=== PATIENT | male | born 1950 | race Caucasian/White ===

== ENCOUNTER → 2017-04-05 | Outpatient (CLI) | payer OTHER, MEDICARE ==
--- NOTE | 2017-04-05 16:33 | RADIOLOGY REPORT (SQ) ---
EXAM DESCRIPTION: FOOT RIGHT COMPLETE COMPLETED DATE/TIME: 04/05/2017 4:18 pm REASON FOR STUDY: NON-PRS CHRONIC ULCER OTH PRT RIGHT FOOT W FAT LAYER EXPOSED L97.512 NON-PRS CLOTH EXAMINER MARKOS ULCER OTH PRT RIGHT FOOT W FAT LAYER L97.522 NON-PRS CHRONIC ULCER OTH PRT LEFT FOOT W FAT LAYER COMPARISON: None. NUMBER OF VIEWS: Three views. TECHNIQUE: AP, lateral and oblique radiographic images acquired of the right foot. LIMITATIONS: None. FINDINGS: MINERALIZATION: Normal. BONES: No acute fracture or dislocation. No worrisome bone lesions. JOINTS: No effusions. SOFT TISSUES: Vascular calcification. No foreign body. OTHER: No other significant finding. IMPRESSION: No evidence of osteomyelitis. TECHNICAL DOCUMENTATION: JOB ID: [id number]- All Rights Reserved
--- NOTE | 2017-04-05 16:38 | RADIOLOGY REPORT (SQ) ---
EXAM DESCRIPTION: FOOT LEFT COMPLETE COMPLETED DATE/TIME: 04/05/2017 4:18 pm REASON FOR STUDY: NON-PRS CHRONIC ULCER OTH PRT LEFT FOOT W FAT LAYER EXPOSED L97.512 NON-PRS CHRON IC ULCER OTH PRT RIGHT FOOT W FAT LAYER L97.522 NON-PRS CHRONIC ULCER OTH PRT LEFT FOOT W FAT LAYER COMPARISON: 05/07/2016 NUMBER OF VIEWS: Three views. TECHNIQUE: AP, lateral and oblique radiographic images acquired of the left foot. LIMITATIONS: None. FINDINGS: MINERALIZATION: Normal. BONES: Periosteal reaction plantar surface of the sesamoid 1st metatarsal head which is unchanged. JOINTS: No effusions. SOFT TISSUES: Soft tissue swelling head of 1st metatarsal. Tiny linear metal density seen on one vie w only is probably external to the patient. Vascular calcifications. OTHER: No other significant finding. IMPRESSION: Nonspecific chronic periosteal reaction 1st metatarsal sesamoid. No significant change from 05/07/2016. TECHNICAL DOCUMENTATION: JOB ID: [id number] [employer]- All Rights Reserved
== END ==
LOC: OD 15:40
PROVIDERS: ATTEND Preventive Medicine Undersea and Hyperbaric Medicine
DX: L97.512 Non-pressure chronic ulcer of other part of right foot with fat layer exposed (principal); L97.522 Non-pressure chronic ulcer of other part of left foot with fat layer exposed

== ENCOUNTER → 2017-05-18 | Outpatient (CLI) | payer MEDICARE, OTHER ==
[2017-05-18 14:51] LABS: ABSOLUTE EOSINOPHILS # (AUTO) 0.1 10^3/uL (0.0-0.6); ABSOLUTE LYMPHOCYTES (AUTO) 1.1 10^3/uL (0.5-4.7); ABSOLUTE MONOCYTES (AUTO) 0.6 10^3/uL (0.1-1.4); BASOPHILS % (AUTO) 0.5 % (0-2); EOSINOPHILS % (AUTO) 1.4 % (0-6); HEMATOCRIT 42.6 % (37.9-51.0); HEMOGLOBIN 14.5 g/dL (13.5-17.0); HGB HCT DIFFERENCE 0.9; LYMPHOCYTES % (AUTO) 12.5 % (13-45); MEAN CORPUSCULAR HEMOGLOBIN 29.5 pg (27.0-33.4); MEAN CORPUSCULAR HGB CONC 34.1 g/dL (32.0-36.0); MEAN CORPUSCULAR VOLUME 87 fl (80-97); MONOCYTES % (AUTO) 6.5 % (3-13); RED BLOOD COUNT 4.92 10^6/uL (4.35-5.55); RED CELL DISTRIBUTION WIDTH 14.6 % (11.5-14.0); SEGMENTED NEUTROPHILS % (AUTO) 79.1 % (42-78); WHITE BLOOD COUNT 8.8 10^3/uL (4.0-10.5)
[2017-05-18 15:09] LABS: ALANINE AMINOTRANSFERASE 59 U/L (21-72); ALBUMIN 4.2 g/dL (3.5-5.0); ALKALINE PHOSPHATASE 42 U/L (38-126); ANION GAP 15 (5-19); ASPARTATE AMINO TRANSFERASE 29 U/L (17-59); BILIRUBIN,DIRECT 0.4 mg/dL (0.0-0.4); BILIRUBIN,TOTAL 0.4 mg/dL (0.2-1.3); BLOOD UREA NITROGEN 26 mg/dL (7-20); CALCIUM 9.9 mg/dL (8.4-10.2); CARBON DIOXIDE 26 mmol/L (22-30); CHLORIDE 100 mmol/L (98-107); GLUCOSE 146 mg/dL (75-110); POTASSIUM 4.6 mmol/L (3.6-5.0); TOTAL PROTEIN 7.1 g/dL (6.3-8.2)
== END ==
LOC: OD 14:05
PROVIDERS: ATTEND Preventive Medicine Undersea and Hyperbaric Medicine
DX: E11.621 Type 2 diabetes mellitus with foot ulcer (principal); L97.509 Non-pressure chronic ulcer of other part of unspecified foot with unspecified severity
CPT/HCPCS: 36415; 80053; 85025

== ENCOUNTER → 2017-12-06 | Outpatient (CLI) | payer MEDICARE, OTHER ==
--- NOTE | 2017-12-06 17:23 | RADIOLOGY REPORT (SQ) ---
EXAM DESCRIPTION: FOOT BILATERAL 3 VIEWS COMPLETED DATE/TIME: 12/06/2017 5:01 pm REASON FOR STUDY: NON PRESSURE ULCER LT FOOT/RT FOOT E11.621 TYPE 2 DIABETES MELLITUS WITH FOOT ULC ER L97.512 NON-PRS CHRONIC ULCER OTH PRT RIGHT FOOT W FAT LAYER L97.522 NON-PRS CHRONIC ULCER OTH P RT LEFT FOOT W FAT LAYER COMPARISON: Bilateral Foot films 04/05/2017 CT left foot 05/12/2016 NUMBER OF VIEWS: Three views. TECHNIQUE: AP, lateral and oblique radiographic images acquired of the right and left foot. LIMITATIONS: None. FINDINGS: RIGHT FOOT MINERALIZATION: Normal. BONES: No acute fracture or dislocation. No worrisome bone lesions. JOINTS: No effusions. SOFT TISSUES: Small soft tissue ulcer with radiopaque ointment, lateral aspect right foot at the 5th metatarsophalangeal joint. No underlying adjacent bony demineralization worrisome for osteomyelitis. No foreign body. OTHER: No other significant finding. LEFT FOOT MINERALIZATION: Normal. BONES: No acute fracture or dislocation. No worrisome bone lesions. JOINTS: No effusions. SOFT TISSUES: Small plantar soft tissue ulcer with radiopaque ointment, along the plantar soft tissue s at the level of the 1st metatarsal head. Tiny radiopaque foreign body along the plantar soft tissues left foot, base of the 4th toe proximal p halanx. This is unchanged from prior studies. OTHER: No other significant finding. IMPRESSION: Bilateral foot soft tissue ulcers without definite plain film evidence of osteomyelitis. No acute fracture. TECHNICAL DOCUMENTATION: JOB ID: [id number] [employer]- All Rights Reserved Reading location - IP/workstation name: [email or web address]
[2017-12-06 17:25] LABS: ABSOLUTE EOSINOPHILS # (AUTO) 0.1 10^3/uL (0.0-0.6); ABSOLUTE LYMPHOCYTES (AUTO) 1.1 10^3/uL (0.5-4.7); ABSOLUTE MONOCYTES (AUTO) 0.5 10^3/uL (0.1-1.4); ABSOLUTE NEUT (AUTO) 7.8 10^3/uL (1.7-8.2); BASOPHILS % (AUTO) 0.3 % (0-2); EOSINOPHILS % (AUTO) 1.2 % (0-6); HEMATOCRIT 49.8 % (37.9-51.0); HEMOGLOBIN 16.5 g/dL (13.5-17.0); LYMPHOCYTES % (AUTO) 11.1 % (13-45); MEAN CORPUSCULAR HEMOGLOBIN 27.7 pg (27.0-33.4); MEAN CORPUSCULAR HGB CONC 33.1 g/dL (32.0-36.0); MEAN CORPUSCULAR VOLUME 84 fl (80-97); MONOCYTES % (AUTO) 5.8 % (3-13); PLATELET COUNT 257 10^3/uL (150-450); RED BLOOD COUNT 5.94 10^6/uL (4.35-5.55); RED CELL DISTRIBUTION WIDTH 17.7 % (11.5-14.0); SEGMENTED NEUTROPHILS % (AUTO) 81.6 % (42-78); TOTAL CELLS COUNTED % (AUTO) 100 %; WHITE BLOOD COUNT 9.6 10^3/uL (4.0-10.5)
[2017-12-06 17:47] LABS: ALANINE AMINOTRANSFERASE 49 U/L (21-72); ALBUMIN 4.1 g/dL (3.5-5.0); ALKALINE PHOSPHATASE 34 U/L (38-126); ANION GAP 18 (5-19); ASPARTATE AMINO TRANSFERASE 30 U/L (17-59); BILIRUBIN,DIRECT 0.4 mg/dL (0.0-0.4); BILIRUBIN,TOTAL 0.5 mg/dL (0.2-1.3); BLOOD UREA NITROGEN 22 mg/dL (7-20); C-REACTIVE PROTEIN 18.3 mg/L (<10.0); CALCIUM 9.4 mg/dL (8.4-10.2); CARBON DIOXIDE 26 mmol/L (22-30); CHLORIDE 100 mmol/L (98-107); GLUCOSE 199 mg/dL (75-110); SODIUM 143.5 mmol/L (137-145); TOTAL PROTEIN 7.1 g/dL (6.3-8.2)
[2017-12-06 18:02] LABS: ERYTHROCYTE SEDIMENTATION RATE 14 mm/hr (0-20)
== END ==
LOC: WC 16:02
PROVIDERS: ATTEND Preventive Medicine Undersea and Hyperbaric Medicine
DX: E11.621 Type 2 diabetes mellitus with foot ulcer (principal); L97.512 Non-pressure chronic ulcer of other part of right foot with fat layer exposed; L97.522 Non-pressure chronic ulcer of other part of left foot with fat layer exposed
CPT/HCPCS: 36415; 80053; 83036; 85025; 85652; 86140

== ENCOUNTER 2018-01-18 09:51 | Day surgery (SDC) | payer OTHER, MEDICARE ==
[2018-01-18] MEDS ORDERED: PROPOFOL INJ 200 MG/20 ML VIAL IV ONE (11:16)
[2018-01-18 11:28] LABS: POTASSIUM 4.9 mmol/L (3.6-5.0)
[2018-01-18 11:52] LABS: HEMATOCRIT 49.4 % (37.9-51.0); HEMOGLOBIN 16.6 g/dL (13.5-17.0); MEAN CORPUSCULAR HEMOGLOBIN 28.3 pg (27.0-33.4); MEAN CORPUSCULAR HGB CONC 33.6 g/dL (32.0-36.0); MEAN CORPUSCULAR VOLUME 84 fl (80-97); PLATELET COUNT 264 10^3/uL (150-450); RED BLOOD COUNT 5.87 10^6/uL (4.35-5.55); RED CELL DISTRIBUTION WIDTH 17.3 % (11.5-14.0); WHITE BLOOD COUNT 8.9 10^3/uL (4.0-10.5)
[2018-01-18 12:12] LABS: ANION GAP 13 (5-19); BLOOD UREA NITROGEN 22 mg/dL (7-20); CALCIUM 9.2 mg/dL (8.4-10.2); CARBON DIOXIDE 24 mmol/L (22-30); CHLORIDE 103 mmol/L (98-107); SODIUM 140.2 mmol/L (137-145)
[2018-01-18 12:13] LABS: GLUCOSE 192 mg/dL (75-110); POTASSIUM 4.9 mmol/L (3.6-5.0)
[2018-01-18] MEDS ORDERED: PROMETHAZINE HCL INJ 25 MG/1 ML VIAL IV PRN (12:27)
[2018-01-18] MEDS ORDERED: DIPHENHYDRAMINE HCL 50 MG/ML VIAL IV PRN (12:27)
--- NOTE | 2018-01-18 13:32 | EKG REPORT ---
SEVERITY:- ABNORMAL ECG - VENTRICULAR-PACED COMPLEXES : Confirmed by: Miguelito Burnett MD 18-Jan-2018 13:32:18
--- NOTE | 2018-01-18 15:08 | Operative Report ---
Operative Report DATE OF SURGERY: 01/18/18 Operative Report: The risks, benefits and alternatives of the procedure including risks of bleeding, perforation requiring surgery are explained to the patient in detail and informed consent is obtained. Patient is taken back to the operating room and placed in the left, lateral decubital position. Timeout was called. Propofol medications administered. A rectal examination is done which did not reveal any masses, tears or fissures. An Olympus videoscope was inserted into the patient's rectum. The scope was then carefully advanced all the way to the cecum. The cecum was identified by the usual anatomical landmarks including the ileocecal valve as well as the appendiceal office. Photodocumentation is obtained. The scope was then sequentially pulled back via the various segments of the colon including the ascending colon, hepatic flexure, transverse colon, splenic flexure, descending colon and finally into the rectosigmoid portions of the colon. Retroflexion maneuvers performed. PREOPERATIVE DIAGNOSIS: Colorectal cancer screening. Patient elected not to stop his Eliquis. It was discussed with the patient that showed a polyp he found it could not be removed during this procedure. Patient would have to come back, repeat prep, get similar medications and have the procedure done at that time. He was agreeable to that. POSTOPERATIVE DIAGNOSIS: Colon polyp found in the cecum. OPERATION: Diagnostic colonoscopy SURGEON: PEE GALE ANESTHESIA: LMAC TISSUE REMOVED OR ALTERED: None. COMPLICATIONS: None. ESTIMATED BLOOD LOSS: None. INTRAOPERATIVE FINDINGS: As noted above. PROCEDURE: Patient tolerated procedure well. No immediate postprocedure complications are noted. Patient discharged in good condition. Discharge date 01/18/2018. Discharge diet: Regular. Discharge activity: Regular. 2-3 week follow-up to discuss findings. Patient is instructed to call the office or proceed to the emergency room should there be any further problems or questions. Patient will need to reschedule colonoscopy as discussed above.
[2018-01-18] MEDS ORDERED: LIDOCAINE 2% INJ-PF (20 MG/ML) 2 ML AMPUL ONE (15:21)
[2018-01-18] MEDS ORDERED: ONDANSETRON HCL INJ/PF 4 MG/2 ML SDV ONE (15:23)
[2018-01-19 12:20] VITALS: BP 172/68
== END 2018-01-18 14:20 | disposition home or self-care (01) ==
LOC: OROUT 09:51
PROVIDERS: ATTEND Internal Medicine Gastroenterology
DX: Z12.11 Encounter for screening for malignant neoplasm of colon (principal); D12.0 Benign neoplasm of cecum; K57.30 Diverticulosis of large intestine without perforation or abscess without bleeding; K64.8 Other hemorrhoids; I10 Essential (primary) hypertension; E11.9 Type 2 diabetes mellitus without complications; G47.33 Obstructive sleep apnea (adult) (pediatric); E66.9 Obesity, unspecified; Z79.899 Other long term (current) drug therapy; Z79.01 Long term (current) use of anticoagulants; Z79.82 Long term (current) use of aspirin; Z79.4 Long term (current) use of insulin; Z79.84 Long term (current) use of oral hypoglycemic drugs; Z86.010 Personal history of colon polyps; J44.9 Chronic obstructive pulmonary disease, unspecified; Z95.0 Presence of cardiac pacemaker
CPT/HCPCS: 36415; 45378; 80048; 811; 82947; 84132; 85027; 93005; 93010; J2405; J2704; J3490

== ENCOUNTER → 2018-02-07 | Outpatient (CLI) | payer MEDICARE, OTHER ==
[2018-02-07 17:16] LABS: ABSOLUTE EOSINOPHILS # (AUTO) 0.1 10^3/uL (0.0-0.6); ABSOLUTE MONOCYTES (AUTO) 0.6 10^3/uL (0.1-1.4); BASOPHILS % (AUTO) 0.5 % (0-2); HEMATOCRIT 46.7 % (37.9-51.0); HEMOGLOBIN 15.9 g/dL (13.5-17.0); LYMPHOCYTES % (AUTO) 10.4 % (13-45); MEAN CORPUSCULAR HEMOGLOBIN 28.3 pg (27.0-33.4); MEAN CORPUSCULAR VOLUME 83 fl (80-97); MONOCYTES % (AUTO) 5.9 % (3-13); PLATELET COUNT 266 10^3/uL (150-450); RED BLOOD COUNT 5.59 10^6/uL (4.35-5.55); RED CELL DISTRIBUTION WIDTH 16.5 % (11.5-14.0); SEGMENTED NEUTROPHILS % (AUTO) 82.2 % (42-78); TOTAL CELLS COUNTED % (AUTO) 100 %; WHITE BLOOD COUNT 9.7 10^3/uL (4.0-10.5)
[2018-02-07 17:33] LABS: ALANINE AMINOTRANSFERASE 37 U/L (21-72); ALBUMIN 3.7 g/dL (3.5-5.0); ALKALINE PHOSPHATASE 31 U/L (38-126); ANION GAP 16 (5-19); ASPARTATE AMINO TRANSFERASE 21 U/L (17-59); BILIRUBIN,DIRECT 0.4 mg/dL (0.0-0.4); BILIRUBIN,TOTAL 0.5 mg/dL (0.2-1.3); BLOOD UREA NITROGEN 18 mg/dL (7-20); C-REACTIVE PROTEIN 18.4 mg/L (<10.0); CALCIUM 9.1 mg/dL (8.4-10.2); CARBON DIOXIDE 24 mmol/L (22-30); CHLORIDE 100 mmol/L (98-107); GLUCOSE 202 mg/dL (75-110); POTASSIUM 4.8 mmol/L (3.6-5.0); SODIUM 139.5 mmol/L (137-145); TOTAL PROTEIN 6.6 g/dL (6.3-8.2)
[2018-02-07 17:52] LABS: ERYTHROCYTE SEDIMENTATION RATE 21 mm/hr (0-20)
== END ==
LOC: OD 16:24
PROVIDERS: ATTEND Preventive Medicine Undersea and Hyperbaric Medicine
DX: E11.621 Type 2 diabetes mellitus with foot ulcer (principal); L97.514 Non-pressure chronic ulcer of other part of right foot with necrosis of bone
CPT/HCPCS: 36415; 80053; 83036; 85025; 85652; 86140

== ENCOUNTER 2018-03-15 11:38 | Inpatient (IN) | payer OTHER, MEDICARE ==
--- NOTE | 2018-03-15 14:30 | ER Document Report ---
ED Medical Screen (RME) - General Chief Complaint: Puncture Wound to Foot Stated Complaint: POSSIBLE FOOT INFECTION Time Seen by Provider: 03/15/18 14:19 Notes: Patient presents from wound center, Dr. Pham sent patient due to concern for right lower extremity wound infection and concern for osteomyelitis. Patient is on Eliquis for recurrent pulmonary emboli. Denies any recent fevers or chills. Patient states that Dr. Pham was debriding his right foot today and then was sent over for concerns of infection. I have greeted and performed a rapid initial assessment of this patient. A comprehensive ED assessment and evaluation of the patient, analysis of test results and completion of the medical decision making process will be conducted by additional ED providers. PHYSICAL EXAMINATION: GENERAL: Well-appearing, obses, well-nourished and in no acute distress. HEAD: Atraumatic, normocephalic. EYES: Pupils equal round extraocular movements intact, conjunctiva are normal. ENT: Nares patent NECK: Normal range of motion LUNGS: No respiratory distress Musculoskeletal: Normal range of motion NEUROLOGICAL: Normal speech. PSYCH: Normal mood, normal affect. SKIN: Bilateral lower feet wrapped in [place], severe stasis dermatitis bilateral lower extremities TRAVEL OUTSIDE OF THE [place] IN LAST 30 DAYS: No - Related Data Allergies/Adverse Reactions: Iodinated Contrast- Oral and IV Dye [IV Dye, Iodine Containing] Allergy (Severe , Verified 01/17/18 17:12) vancomycin [Vancomycin] Allergy (Severe, Verified 01/17/18 17:12) Pruritis levofloxacin [From Levaquin] Allergy (Unknown, Verified 01/17/18 17:12) doxycycline [Doxycycline] Allergy (Verified 01/17/18 17:12) minocycline [Minocycline] Allergy (Verified 01/17/18 17:12) simvastatin [Simvastatin] Allergy (Verified 01/17/18 17:12) Past Medical History - Past Medical History Cardiac Medical History: Reports: Hx Congestive Heart Failure, Hx Coronary Artery Disease - HIGH CHOLESTEROL, Hx DVT, Hx Heart Attack - "COUPLE OF THEM", Hx Hypercholesterolemia, Hx Hypertension, Hx Pulmonary Embolism Pulmonary Medical History: Reports: Hx COPD - MILD, ON 3LNC "MOST OF THE TIME", Hx Sleep Apnea Denies: Hx Asthma, Hx Bronchitis, Hx Pneumonia Neurological Medical History: Denies: Hx Cerebrovascular Accident, Hx Seizures Endocrine Medical History: Reports: Hx Diabetes Mellitus Type 2 GI Medical History: Reports: Hx Gastroesophageal Reflux Disease Musculoskeltal Medical History: Reports Hx Arthritis - CHRONIC PAIN MANAGEMENT FOR OSTEOARTHRITIS Psychiatric Medical History: Reports: Hx Depression Traumatic Medical History: Reports: Hx Fractures Past Surgical History: Reports: Hx Abdominal Surgery, Hx Appendectomy, Hx Cardiac Catheterization, Hx Cardiac Surgery, Hx Pacemaker - Immunizations Hx Diphtheria, Pertussis, Tetanus Vaccination: No History of Influenza Vaccine for 05/2017 - 10/2017 Season: Yes Physical Exam - Vital signs Vitals: Temp Pulse Resp BP Pulse Ox 98.0 F 83 16 146/77 H 93 03/15/18 11:42 03/15/18 11:42 03/15/18 11:42 03/15/18 11:42 03/15/18 11:42 Course - Vital Signs Vital signs: Temp Pulse Resp BP Pulse Ox 98.0 F 83 16 146/77 H 93 03/15/18 11:42 03/15/18 11:42 03/15/18 11:42 03/15/18 11:42 03/15/18 11:42 Doctor's Discharge - Discharge Referrals: MARIA PHAM DPM [Primary Care Provider] - Follow up as needed
[2018-03-15 15:03] LABS: ABSOLUTE BASOPHILS # (AUTO) 0.1 10^3/uL (0.0-0.2); ABSOLUTE EOSINOPHILS # (AUTO) 0.1 10^3/uL (0.0-0.6); ABSOLUTE MONOCYTES (AUTO) 0.8 10^3/uL (0.1-1.4); ABSOLUTE NEUT (AUTO) 8.8 10^3/uL (1.7-8.2); BASOPHILS % (AUTO) 0.6 % (0-2); EOSINOPHILS % (AUTO) 1.1 % (0-6); HEMATOCRIT 47.2 % (37.9-51.0); HEMOGLOBIN 15.5 g/dL (13.5-17.0); INTERNATIONAL RATION (INR) 1.14; LYMPHOCYTES % (AUTO) 9.1 % (13-45); MEAN CORPUSCULAR HEMOGLOBIN 28.1 pg (27.0-33.4); MEAN CORPUSCULAR HGB CONC 32.9 g/dL (32.0-36.0); MEAN CORPUSCULAR VOLUME 85 fl (80-97); MONOCYTES % (AUTO) 7.4 % (3-13); PLATELET COUNT 307 10^3/uL (150-450); PROTHROMBIN TIME 15.2 SEC (11.4-15.4); RED BLOOD COUNT 5.52 10^6/uL (4.35-5.55); RED CELL DISTRIBUTION WIDTH 16.2 % (11.5-14.0); SEGMENTED NEUTROPHILS % (AUTO) 81.8 % (42-78); TOTAL CELLS COUNTED % (AUTO) 100 %; WHITE BLOOD COUNT 10.8 10^3/uL (4.0-10.5)
[2018-03-15 15:04] LABS: PARTIAL THROMBOPLASTIN TIME 39.4 SEC (23.5-35.8)
[2018-03-15 15:17] LABS: ALANINE AMINOTRANSFERASE 35 U/L (21-72); ALBUMIN 4.2 g/dL (3.5-5.0); ALKALINE PHOSPHATASE 39 U/L (38-126); ANION GAP 16 (5-19); ASPARTATE AMINO TRANSFERASE 26 U/L (17-59); BILIRUBIN,DIRECT 0.4 mg/dL (0.0-0.4); BILIRUBIN,TOTAL 0.5 mg/dL (0.2-1.3); BLOOD UREA NITROGEN 26 mg/dL (7-20); CALCIUM 9.7 mg/dL (8.4-10.2); CARBON DIOXIDE 24 mmol/L (22-30); CHLORIDE 103 mmol/L (98-107); GLUCOSE 173 mg/dL (75-110); POTASSIUM 5.1 mmol/L (3.6-5.0); SODIUM 142.6 mmol/L (137-145); TOTAL PROTEIN 7.4 g/dL (6.3-8.2)
--- NOTE | 2018-03-15 15:50 | RADIOLOGY REPORT (SQ) ---
EXAM DESCRIPTION: FOOT RIGHT COMPLETE COMPLETED DATE/TIME: 03/15/2018 3:34 pm REASON FOR STUDY: concern for infection COMPARISON: 02/07/2018 NUMBER OF VIEWS: Three views. TECHNIQUE: AP, lateral and oblique radiographic images acquired of the right foot. LIMITATIONS: None. FINDINGS: MINERALIZATION: Osteopenia. BONES: Absence of the head of the 5th metatarsal. Irregular margin. Unclear whether this represents lysis secondary to osteomyelitis versus surgical manipulation. Recommend clinical correlation. Ra diolucent change involving the articulating surface of the base of the adjacent proximal phalanx may be secondary to infection. JOINTS: No effusions. SOFT TISSUES: Bandage artifact. Density adjacent to the 5th metatarsophalangeal joint presumably rel ates to bandage artifact unless other etiology is known clinically. OTHER: No other significant finding. IMPRESSION: Absence of the head of the 5th metatarsal as described above. No history available. . Surgical manipulation versus infection see above discussion. TECHNICAL DOCUMENTATION: JOB ID: [id number] [employer]- All Rights Reserved Reading location - IP/workstation name: [email or web address]
--- NOTE | 2018-03-15 16:22 | ER Document Report ---
ED General - General Chief Complaint: Puncture Wound to Foot Stated Complaint: POSSIBLE FOOT INFECTION Time Seen by Provider: 03/15/18 14:19 TRAVEL OUTSIDE OF THE [place] IN LAST 30 DAYS: No - HPI Patient complains to provider of: Diabetic foot infection Notes: Patient coming in for evaluation of a right diabetic foot infection. Patient states he was being debrided by [facility] specialist Dr. Pham when during the debridement the head of his metatarsal the fifth fell out of the wound the wound was packed and told to come to the ER for further evaluation. Patient otherwise denies any fevers chills nausea vomiting diarrhea states he just completed a course of Bactrim. Patient otherwise looks to be in no respiratory distress no obvious distress resting comfortably - Related Data Allergies/Adverse Reactions: Iodinated Contrast- Oral and IV Dye [IV Dye, Iodine Containing] Allergy (Severe , Verified 01/17/18 17:12) vancomycin [Vancomycin] Allergy (Severe, Verified 01/17/18 17:12) Pruritis levofloxacin [From Levaquin] Allergy (Unknown, Verified 01/17/18 17:12) doxycycline [Doxycycline] Allergy (Verified 01/17/18 17:12) minocycline [Minocycline] Allergy (Verified 01/17/18 17:12) simvastatin [Simvastatin] Allergy (Verified 01/17/18 17:12) Past Medical History - Social History Smoking Status: Former Smoker Family History: Hypertension Patient has suicidal ideation: No Patient has homicidal ideation: No - Past Medical History Cardiac Medical History: Reports: Hx Congestive Heart Failure, Hx Coronary Artery Disease - HIGH CHOLESTEROL, Hx DVT, Hx Heart Attack - "COUPLE OF THEM", Hx Hypercholesterolemia, Hx Hypertension, Hx Pulmonary Embolism Pulmonary Medical History: Reports: Hx COPD - MILD, ON 3LNC "MOST OF THE TIME", Hx Sleep Apnea Denies: Hx Asthma, Hx Bronchitis, Hx Pneumonia Neurological Medical History: Denies: Hx Cerebrovascular Accident, Hx Seizures Endocrine Medical History: Reports: Hx Diabetes Mellitus Type 2 Renal/ Medical History: Denies: Hx Peritoneal Dialysis GI Medical History: Reports: Hx Gastroesophageal Reflux Disease Musculoskeletal Medical History: Reports Hx Arthritis - CHRONIC PAIN MANAGEMENT FOR OSTEOARTHRITIS Psychiatric Medical History: Reports: Hx Depression Traumatic Medical History: Reports: Hx Fractures Past Surgical History: Reports: Hx Abdominal Surgery, Hx Appendectomy, Hx Cardiac Catheterization, Hx Cardiac Surgery, Hx Pacemaker - Immunizations Hx Diphtheria, Pertussis, Tetanus Vaccination: No Hx Pneumococcal Vaccination: 05/09/14 Review of Systems - Review of Systems Constitutional: No symptoms reported EENT: No symptoms reported Cardiovascular: No symptoms reported Respiratory: No symptoms reported Gastrointestinal: No symptoms reported Genitourinary: No symptoms reported Male Genitourinary: No symptoms reported Musculoskeletal: Other - Foot pain Skin: No symptoms reported Hematologic/Lymphatic: No symptoms reported Neurological/Psychological: No symptoms reported -: Yes All other systems reviewed and negative Physical Exam - Vital signs Vitals: Temp Pulse Resp BP Pulse Ox 98.0 F 83 16 146/77 H 93 03/15/18 11:42 03/15/18 11:42 03/15/18 11:42 03/15/18 11:42 03/15/18 11:42 Interpretation: Normal - General General appearance: Appears well, Alert - HEENT Head: Normocephalic, Atraumatic Eyes: Normal Pupils: PERRL - Respiratory Respiratory status: No respiratory distress Chest status: Nontender Breath sounds: Normal Chest palpation: Normal - Cardiovascular Rhythm: Regular Heart sounds: Normal auscultation Murmur: No - Abdominal Inspection: Normal Distension: No distension Bowel sounds: Normal Tenderness: Nontender Organomegaly: No organomegaly - Back Back: Normal, Nontender - Extremities General upper extremity: Normal inspection, Nontender, Normal color, Normal ROM , Normal temperature General lower extremity: Tender - Patient with a large defect to the base of the fifth digit on the right toe at the head of the metatarsal wound was unpacked and unwrapped inflammatory changes no diffuse drainage, Normal color - Normal color. No: Normal inspection - Neurological Neuro grossly intact: Yes Cognition: Normal Orientation: AAOx4 Kyree Coma Scale Eye Opening: Spontaneous [place] Common Coma Scale Verbal: Oriented [place]ree Coma Scale Motor: Obeys Commands [place] Common Coma Scale Total: 15 Speech: Normal Motor strength normal: LUE, RUE, LLE, RLE Sensory: Normal - Psychological Associated symptoms: Normal affect, Normal mood - Skin Skin Temperature: Warm Skin Moisture: Dry Skin Color: Normal Course - Re-evaluation Re-evalutation: 03/15/18 22:42 X-ray shows loss of the metatarsal head with changes consistent with possible osteomyelitis. Her white count no signs of septicemia. Patient's case was discussed with hospitalist for further evaluation and admission - Vital Signs Vital signs: Temp Pulse Resp BP Pulse Ox 98.3 F 84 18 169/87 H 97 03/15/18 21:04 03/15/18 21:04 03/15/18 21:04 03/15/18 21:04 03/15/18 21:04 - Laboratory Result Diagrams: 03/15/18 14:38 03/15/18 14:38 Laboratory results interpreted by me: 03/15/18 03/15/18 03/15/18 14:38 14:38 14:38 WBC 10.8 H RDW 16.2 H Seg Neutrophils % 81.8 H Lymphocytes % 9.1 L Absolute Neutrophils 8.8 H APTT 39.4 H Potassium 5.1 H BUN 26 H Creatinine 1.27 H Est GFR (Non-Af Amer) 56 L Glucose 173 H Discharge - Discharge Clinical Impression: Morbid obesity with BMI of 40.0-44.9, adult, Diabetic foot infection, Hyperkalemia, Pacemaker, COPD (chronic obstructive pulmonary disease) Osteomyelitis Qualifiers: Osteomyelitis type: unspecified type Osteomyelitis location: unspecified site Qualified Code(s): M86.9 - Osteomyelitis, unspecified Condition: Good Disposition: ADMITTED INPATIENT Admitting Provider: Hospitalist - [facility] Admitted: Medical Floor
[2018-03-15] MEDS ORDERED: ACETAMINOPHEN 325 MG TABLET PO PRN (16:32)
[2018-03-15] MEDS ORDERED: GABAPENTIN 100 MG CAPSULE PO ONE (23:00)
[2018-03-15] MEDS ORDERED: INSULIN GLARGINE,HUM.REC.ANLOG 300 UNIT/3 ML INSULN.PEN SUBCUT ONE (23:15)
[2018-03-15] MEDS: PIPERACILLIN SODIUM/TAZOBACTAM 3.375 GM in NORMAL SALINE 100 ML IV SCH (23:22)
[2018-03-15] MEDS ORDERED: METOPROLOL TARTRATE 100 MG TABLET PO ONE (23:45)
--- NOTE | 2018-03-15 23:47 | PDOC H&P ---
History of Present Illness Admission Date/PCP: 03/15/18 16:27 JUAN PABLO TANNER MD Patient complains of: Fifth digit right foot fell off. Known osteomyelitis. History of Present Illness: HEIDI ARSHAD is a 67 year old male who has a past medical history of morbid obesity, ANDIE on CPAP, DM II, HTN, PAD, DVT/PE, and Diastolic dysfunction. Recent wound cultures had grown out pseudomonas. The patient has been taking bactrim by mouth for his chronic osteomyelitis. Yesterday his bladder trimmer, Dr. Pham tried to persuade the patient to come into the hospitgal for more aggressive treatment of his chronic wound. The patient declined. Today apparently the fifth digit of the patients right foot fell off. The patient presented to the ED. He is complaining of "low grade fevers" of 98.0-99.0 range. Past Medical History Cardiac Medical History: Reports: Congestive Heart Failure, Coronary Artery Disease - HIGH CHOLESTEROL, DVT, Myocardial Infarction - "COUPLE OF THEM", Hyperlipidema, Hypertension, Pulmonary Embolism Pulmonary Medical History: Reports: Chronic Obstructive Pulmonary Disease (COPD ) - MILD, ON 3LNC "MOST OF THE TIME", Sleep Apnea Denies: Asthma, Bronchitis, Pneumonia Neurological Medical History: Denies: Seizures Endocrine Medical History: Reports: Diabetes Mellitus Type 2 GI Medical History: Reports: Gastroesophageal Reflux Disease Musculoskeltal Medical History: Reports: Arthritis - CHRONIC PAIN MANAGEMENT FOR OSTEOARTHRITIS Psychiatric Medical History: Reports: Depression Hematology: Denies: Anemia Past Surgical History Past Surgical History: Reports: Appendectomy, Cardiac Catheterization, Pacemaker Social History Smoking Status: Former Smoker Frequency of Alcohol Use: None Hx Recreational Drug Use: No Drugs: None Hx Prescription Drug Abuse: No Family History Family History: Hypertension Parental Family History Reviewed: Yes Children Family History Reviewed: Yes Sibling(s) Family History Reviewed.: Yes Medication/Allergy Home Medications: Amlodipine Besylate [Norvasc 5 mg Tablet] 10 mg PO DAILY 01/18/18 Apixaban [Eliquis 5 mg Tablet] 5 mg PO BID 01/18/18 Aspirin 81 mg PO DAILY 01/18/18 Cholecalciferol (Vitamin D3) [Vitamin D3] 400 unit PO BID 01/18/18 Ezetimibe [Zetia 10 mg Tablet] 10 mg PO DAILY 01/18/18 Ferrous Sulfate 325 mg PO QHS 01/18/18 Folic Acid 40 mg PO DAILY 01/18/18 Furosemide [Lasix 20 mg Tablet] 20 mg PO QAM 01/18/18 Insulin Glargine,Hum.rec.anlog [Lantus] 88 unit SQ QHS 01/18/18 Insulin Regular, Human [Novolin R] 48 unit IJ TID 01/18/18 Magnesium Oxide [Mag-Ox 400 mg Tablet] 400 mg PO DAILY 01/18/18 Methadone HCl 10 mg PO TID 01/18/18 Methocarbamol [Robaxin-750] 750 mg PO BID 01/18/18 Metoprolol Tartrate [Lopressor 100 mg Tablet] 100 mg PO Q12 01/18/18 [place]-3 Fatty Acids/Fish Oil [Fish Oil 1,000 mg Capsule] 1 each PO DAILY Oxycodone HCl [Oxycodone HCl 10 MG Tablet] 10 mg PO TIDP PRN 01/18/18 Promethazine HCl 25 mg PO TIDP PRN 01/18/18 Tiotropium [place] [Spiriva] 18 mcg IH DAILY 01/18/18 Ubidecarenone [Co Q10] 100 mg PO DAILY 01/18/18 Ascorbic Acid [Vitamin C] 1,000 mg PO DAILY 03/15/18 Clobetasol Propionate/Emoll [Clobetasol Emulsion 0.05% Foam] 50 gm TP BIDP PRN 03/15/18 Clonazepam [Klonopin 1 mg Tablet] 1 mg PO Q8HP PRN 03/15/18 Gabapentin [Neurontin 100 mg Capsule] 100 mg PO DAILY 03/15/18 Metformin HCl [Glucophage] 850 mg PO AC 03/15/18 Milk Thistle 175 mg PO DAILY 03/15/18 Multivit,Stress Formula/Zinc [Stress Formula with Zinc Tab] 1 each PO DAILY 02/23 Omeprazole 20 mg PO BID 03/15/18 Potassium Gluconate [Potassium] 600 mg PO BID 03/15/18 Allergies/Adverse Reactions: Iodinated Contrast- Oral and IV Dye [IV Dye, Iodine Containing] Allergy (Severe , Verified 01/17/18 17:12) vancomycin [Vancomycin] Allergy (Severe, Verified 01/17/18 17:12) Pruritis levofloxacin [From Levaquin] Allergy (Unknown, Verified 01/17/18 17:12) doxycycline [Doxycycline] Allergy (Verified 01/17/18 17:12) minocycline [Minocycline] Allergy (Verified 01/17/18 17:12) simvastatin [Simvastatin] Allergy (Verified 01/17/18 17:12) Review of Systems Constitutional: PRESENT: fatigue, other - Low graqde fevers.. ABSENT: chills, night sweats Eyes: ABSENT: visual disturbances Ears: ABSENT: hearing changes Nose, Mouth, and Throat: ABSENT: sore throat, vertigo Cardiovascular: ABSENT: chest pain, dyspnea on exertion, orthropnea, palpitations Respiratory: ABSENT: cough, dyspnea, sputum Gastrointestinal: ABSENT: abdominal pain, constipation, dysphagia, nausea, vomiting Musculoskeletal: ABSENT: deformity Integumentary: PRESENT: wounds - Right foot wound. Neurological: ABSENT: abnormal gait, abnormal speech, focal weakness, frequent falls, syncope, vertigo Psychiatric: PRESENT: depression Physical Exam Vital Signs: Temp Pulse Resp BP Pulse Ox 98.3 F 84 18 169/87 H 97 03/15/18 21:04 03/15/18 21:04 03/15/18 21:04 03/15/18 21:04 03/15/18 21:04 Intake & Output 03/14/18 03/15/18 03/16/18 06:59 06:59 06:59 Weight 166.831 kg General appearance: PRESENT: no acute distress, cooperative Respiratory exam: PRESENT: other - Lung sounds are distant.. ABSENT: rales, rhonchi, wheezes Cardiovascular exam: PRESENT: RRR. ABSENT: gallop, rubs, systolic murmur Pulses: PRESENT: other - Dimished distal pulses. GI/Abdominal exam: PRESENT: other - Bowel sounds are distant. I am unable to evaluate the patients abdomen for hernias, masses, or organomegaly due to the patient's body habitus.. ABSENT: distended, guarding, tenderness Musculoskeletal exam: ABSENT: deformity, full ROM, tenderness Neurological exam: PRESENT: alert, awake, oriented to person, oriented to place , oriented to time, oriented to situation, CN II-XII grossly intact. ABSENT: motor sensory deficit Psychiatric exam: PRESENT: appropriate affect, normal mood Skin exam: PRESENT: dry, intact, warm, other - Bilateral lower extremities siginificant for chronic venous stasis dermatitis. Results Laboratory Results: 03/15/18 22:42 Troponin I < 0.012 Impressions: Foot X-Ray 03/15/18 14:29 IMPRESSION: Absence of the head of the 5th metatarsal as described above. No history available. . Surgical manipulation versus infection see above discussion. Assessment & Plan - Diagnosis (1) Diabetic foot infection Is this a current diagnosis for this admission?: Yes Plan: Control sugars, consult podiatry. (2) Hyperkalemia Is this a current diagnosis for this admission?: Yes Plan: Lasix. (3) Osteomyelitis Qualifiers: Osteomyelitis type: chronic, with draining sinus Osteomyelitis location: foot Laterality: right Qualified Code(s): M86.471 - Chronic osteomyelitis with draining sinus, right ankle and foot Is this a current diagnosis for this admission?: Yes Plan: IV Zosyn. Consult podiatry. (4) Pacemaker Is this a current diagnosis for this admission?: Yes Plan: Noted. (5) COPD (chronic obstructive pulmonary disease) Qualifiers: COPD type: unspecified COPD Qualified Code(s): J44.9 - Chronic obstructive pulmonary disease, unspecified Is this a current diagnosis for this admission?: Yes Plan: Nebulizer treatments prn. (6) Morbid obesity with BMI of 40.0-44.9, adult Is this a current diagnosis for this admission?: Yes Plan: Complicates all cares. (7) Abscess of foot Is this a current diagnosis for this admission?: Yes Plan: IV zosyn, blood cultures, consult podiatry. (8) Benzodiazepine dependence, continuous Is this a current diagnosis for this admission?: Yes Plan: continue home medication (10) Diabetes mellitus Qualifiers: Diabetes mellitus type: type 2 Diabetes mellitus assistant terminal manager insulin use: with assistant terminal manager use Diabetes mellitus complication status: with circulatory complication Diabetes mellitus complication detail: with peripheral angiopathy without gangrene Qualified Code(s): E11.51 - Type 2 diabetes mellitus with diabetic peripheral angiopathy without gangrene; Z79.4 - snf (current) use of insulin; Z79.4 - snf (current) use of insulin; Z79.4 - truck terminal manager (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 The patient refuses a diabetic diet. (11) Diabetic foot ulcer Qualifiers: Diabetes mellitus type: type 2 Laterality: left Is this a current diagnosis for this admission?: Yes Plan: Podiatry consult. (13) Hyperlipidemia Qualifiers: Hyperlipidemia type: mixed hyperlipidemia Qualified Code(s): E78.2 - Mixed hyperlipidemia Is this a current diagnosis for this admission?: Yes Plan: Continue statin. (14) Hypertension Qualifiers: Hypertension type: essential hypertension Qualified Code(s): I10 - Essential (primary) hypertension Is this a current diagnosis for this admission?: Yes Plan: Continue home medications. (15) ANDIE on CPAP Is this a current diagnosis for this admission?: Yes Plan: Pt to use own CPAP. - Time Time Spent: Greater than 70 Minutes Medications reviewed and adjusted accordingly: Yes - Inpatient Certification Based on my medical assessment, after consideration of the patient's comorbidities, presenting symptoms, or acuity I expect that the services needed warrant INPATIENT care.: Yes I certify that my determination is in accordance with my understanding of Medicare's requirements for reasonable and necessary INPATIENT services [42 CFR 412.3e].: Yes Medical Necessity: Significant Comorbidiites Make Outpatient Treatment Too Risky , Need Close Monitoring Due to Risk of Patient Decompensation, Need for IV Antibiotics, Need for Surgery, Risk of Complication if Not Cared For in Hospital
[2018-03-15] MEDS ORDERED: GLUCAGON,HUMAN RECOMB 1 MG INJ IM PRN (23:50)
[2018-03-15] MEDS ORDERED: DEXTROSE 40% GEL 15 GM TUBE PO PRN ×2 (23:50)
[2018-03-15] MEDS ORDERED: DEXTROSE 50%-WATER 25 GM/50 ML DISP.SYRIN IV PRN ×2 (23:50)
[2018-03-15] MEDS ORDERED: CLONAZEPAM 1 MG TABLET PO PRN (23:51)
[2018-03-15] MEDS: OXYCODONE HCL IR 5 MG TABLET PO PRN (23:53)
[2018-03-16] MEDS: PIPERACILLIN SODIUM/TAZOBACTAM 3.375 GM in NORMAL SALINE 100 ML IV SCH ×4 (04:00→21:22)
[2018-03-16 05:42] LABS: ABSOLUTE EOSINOPHILS # (AUTO) 0.2 10^3/uL (0.0-0.6); ABSOLUTE LYMPHOCYTES (AUTO) 1.4 10^3/uL (0.5-4.7); ABSOLUTE MONOCYTES (AUTO) 0.7 10^3/uL (0.1-1.4); ABSOLUTE NEUT (AUTO) 5.3 10^3/uL (1.7-8.2); BASOPHILS % (AUTO) 0.5 % (0-2); EOSINOPHILS % (AUTO) 2.4 % (0-6); HEMATOCRIT 42.7 % (37.9-51.0); HEMOGLOBIN 14.2 g/dL (13.5-17.0); LYMPHOCYTES % (AUTO) 18.4 % (13-45); MEAN CORPUSCULAR HEMOGLOBIN 28.3 pg (27.0-33.4); MEAN CORPUSCULAR HGB CONC 33.3 g/dL (32.0-36.0); MEAN CORPUSCULAR VOLUME 85 fl (80-97); MONOCYTES % (AUTO) 8.9 % (3-13); PLATELET COUNT 244 10^3/uL (150-450); RED BLOOD COUNT 5.02 10^6/uL (4.35-5.55); RED CELL DISTRIBUTION WIDTH 16.3 % (11.5-14.0); SEGMENTED NEUTROPHILS % (AUTO) 69.8 % (42-78); TOTAL CELLS COUNTED % (AUTO) 100 %; WHITE BLOOD COUNT 7.6 10^3/uL (4.0-10.5)
[2018-03-16 06:00] LABS: ALANINE AMINOTRANSFERASE 34 U/L (21-72); ALBUMIN 3.4 g/dL (3.5-5.0); ALKALINE PHOSPHATASE 28 U/L (38-126); ANION GAP 12 (5-19); ASPARTATE AMINO TRANSFERASE 22 U/L (17-59); BILIRUBIN,DIRECT 0.3 mg/dL (0.0-0.4); BILIRUBIN,TOTAL 0.6 mg/dL (0.2-1.3); BLOOD UREA NITROGEN 27 mg/dL (7-20); CARBON DIOXIDE 26 mmol/L (22-30); CHLORIDE 103 mmol/L (98-107); GLUCOSE 127 mg/dL (75-110); POTASSIUM 4.8 mmol/L (3.6-5.0); TOTAL PROTEIN 6.2 g/dL (6.3-8.2)
[2018-03-16] MEDS ORDERED: CHOLECALCIFEROL 400 UNIT PO SCH (10:00)
[2018-03-16] MEDS ORDERED: MULTIVIT-STRESS FORMULA/ZINC TABLET PO SCH (10:00)
[2018-03-16] MEDS ORDERED: GABAPENTIN 100 MG CAPSULE PO SCH ×2 (10:00→22:00)
[2018-03-16] MEDS ORDERED: FOLIC ACID PO SCH (10:00)
[2018-03-16] MEDS: ASCORBIC ACID 500 MG TABLET PO SCH (11:09)
[2018-03-16] MEDS: MULTIVIT-STRESS FORMULA/ZINC TABLET PO SCH (11:10)
[2018-03-16] MEDS: ASPIRIN 81 MG TABLET, CHEWABLE PO SCH (11:11)
[2018-03-16] MEDS: MAGNESIUM OXIDE 400 MG TABLET PO SCH (11:13)
[2018-03-16] MEDS: METHADONE HCL 10 MG TABLET PO SCH ×3 (11:13→16:59)
[2018-03-16] MEDS: AMLODIPINE BESYLATE 5 MG TABLET PO SCH (11:14)
[2018-03-16] MEDS: METHOCARBAMOL 750 MG TABLET PO SCH ×2 (11:15→18:24)
[2018-03-16] MEDS: METOPROLOL TARTRATE 100 MG TABLET PO SCH ×2 (11:15→23:14)
[2018-03-16] MEDS: APIXABAN 5 MG TABLET PO SCH ×2 (11:16→18:24)
[2018-03-16] MEDS: CHOLECALCIFEROL (D3) 400 UNIT TABLET PO SCH ×2 (11:16→18:24)
[2018-03-16] MEDS: TIOTROPIUM BROMIDE DPI 5 CAP/KIT (18 MCG/CAP) IH SCH (11:17)
[2018-03-16] MEDS: EZETIMIBE 10 MG TABLET PO SCH (11:17)
[2018-03-16] MEDS: LANSOPRAZOLE 15 MG TAB.RAP.DR PO SCH ×2 (11:21→18:24)
[2018-03-16] MEDS ORDERED: INSULIN REGULAR IJ SCH (14:00)
[2018-03-16] MEDS ORDERED: INSULIN REG, HUMAN 100 UNIT/ML 3 ML VIAL (PYX) SUBCUT SCH (14:00)
[2018-03-16] MEDS ORDERED: [UNRECOGNIZED DRUG - OTHER] IJ SCH (14:00)
[2018-03-16] MEDS ORDERED: [UNRECOGNIZED DRUG - REMARK] IJ SCH (14:00)
[2018-03-16] MEDS: INSULIN REG, HUMAN 100 UNIT/ML 3 ML VIAL (PYX) SUBCUT SCH ×2 (14:03→17:00)
--- NOTE | 2018-03-16 15:09 | PDOC CONSULTATION ---
Consultation Consult Date: 03/16/18 Attending physician:: PAMELA NIETO Consult reason:: osteomyelitis right foot History of Present Illness Admission Date/PCP: 03/15/18 16:27 JUAN PABLO TANNER MD History of Present Illness: HEIDI ARSHAD is a 67 year old male admitted with a diabetic foot ulcer on the right foot. Patient has history of osteomyelitis of the fifth metatarsal and possibly the fifth toe. Patient also has a healing ulceration sub-first metatarsal head of left foot. He is not complaining of any pain in his right foot. Past Medical History Cardiac Medical History: Reports: Congestive Heart Failure, Coronary Artery Disease - HIGH CHOLESTEROL, DVT, Myocardial Infarction - "COUPLE OF THEM", Hyperlipidema, Hypertension, Pulmonary Embolism Pulmonary Medical History: Reports: Chronic Obstructive Pulmonary Disease (COPD ) - MILD, ON 3LNC "MOST OF THE TIME", Sleep Apnea Denies: Asthma, Bronchitis, Pneumonia Neurological Medical History: Denies: Seizures Endocrine Medical History: Reports: Diabetes Mellitus Type 2 GI Medical History: Reports: Gastroesophageal Reflux Disease Musculoskeltal Medical History: Reports: Arthritis - CHRONIC PAIN MANAGEMENT FOR OSTEOARTHRITIS Psychiatric Medical History: Reports: Depression Hematology: Denies: Anemia Past Surgical History Past Surgical History: Reports: Appendectomy, Cardiac Catheterization, Pacemaker Social History Smoking Status: Former Smoker Frequency of Alcohol Use: None Hx Recreational Drug Use: No Drugs: None Hx Prescription Drug Abuse: No Family History Family History: Hypertension Parental Family History Reviewed: Yes Children Family History Reviewed: Yes Sibling(s) Family History Reviewed.: Yes Medication/Allergy Home Medications: Amlodipine Besylate [Norvasc 5 mg Tablet] 10 mg PO DAILY 01/18/18 Apixaban [Eliquis 5 mg Tablet] 5 mg PO BID 01/18/18 Aspirin 81 mg PO DAILY 01/18/18 Cholecalciferol (Vitamin D3) [Vitamin D3] 400 unit PO BID 01/18/18 Ezetimibe [Zetia 10 mg Tablet] 10 mg PO DAILY 01/18/18 Ferrous Sulfate 325 mg PO QHS 01/18/18 Folic Acid 1 mg PO DAILY 01/18/18 Furosemide [Lasix 20 mg Tablet] 20 mg PO QAM 01/18/18 Insulin Glargine,Hum.rec.anlog [Lantus] 88 unit SQ QHS 01/18/18 Insulin Regular, Human [Novolin R] 48 unit IJ TID 01/18/18 Magnesium Oxide [Mag-Ox 400 mg Tablet] 400 mg PO DAILY 01/18/18 Methadone HCl 20 mg PO TID 01/18/18 Methocarbamol [Robaxin-750] 750 mg PO BID 01/18/18 Metoprolol Tartrate [Lopressor 100 mg Tablet] 100 mg PO Q12 01/18/18 [place]-3 Fatty Acids/Fish Oil [Fish Oil 1,000 mg Capsule] 1 each PO DAILY Oxycodone HCl [Oxycodone HCl 10 MG Tablet] 20 mg PO QIDP PRN 01/18/18 Promethazine HCl 25 mg PO TIDP PRN 01/18/18 Tiotropium [place] [Spiriva] 18 mcg IH DAILY 01/18/18 Ubidecarenone [Co Q10] 100 mg PO DAILY 01/18/18 Ascorbic Acid [Vitamin C] 1,000 mg PO DAILY 03/15/18 Clobetasol Propionate/Emoll [Clobetasol Emulsion 0.05% Foam] 50 gm TP BIDP PRN 03/15/18 Clonazepam [Klonopin 1 mg Tablet] 1 mg PO DAILYP PRN 03/15/18 Gabapentin [Neurontin 100 mg Capsule] 200 mg PO QHS 03/15/18 Metformin HCl [Glucophage] 850 mg PO AC 03/15/18 Milk Thistle 175 mg PO DAILY 03/15/18 Multivit,Stress Formula/Zinc [Stress Formula with Zinc Tab] 1 each PO DAILY 02/23 Omeprazole 20 mg PO BID 03/15/18 Potassium Gluconate [Potassium] 600 mg PO BID 03/15/18 Allergies/Adverse Reactions: Iodinated Contrast- Oral and IV Dye [IV Dye, Iodine Containing] Allergy (Severe , Verified 01/17/18 17:12) vancomycin [Vancomycin] Allergy (Severe, Verified 01/17/18 17:12) Pruritis levofloxacin [From Levaquin] Allergy (Unknown, Verified 01/17/18 17:12) doxycycline [Doxycycline] Allergy (Verified 01/17/18 17:12) minocycline [Minocycline] Allergy (Verified 01/17/18 17:12) simvastatin [Simvastatin] Allergy (Verified 01/17/18 17:12) Physical Exam Vital Signs: Temp Pulse Resp BP Pulse Ox 97.8 F 70 16 155/54 H 96 03/16/18 11:42 03/16/18 11:42 03/16/18 11:42 03/16/18 11:42 03/16/18 11:42 Intake & Output 03/15/18 03/16/18 03/17/18 06:59 06:59 06:59 Intake Total 500 100 Balance 500 100 Weight 367 lb 8 oz Pulses: PRESENT: +1 pedal pulses bilateral Vascular exam: PRESENT: normal capillary refill Extremities exam: PRESENT: pedal edema, +2 edema - Stasis dermatitis bilateral. Musculoskeletal exam: PRESENT: ambulatory, other - There is ulceration lateral aspect of the fifth metatarsal phalangeal joint right foot. Mild cellulitis serous drainage. Patient had recent debridement of the fifth metatarsal bone more removal of the distal portion of the metatarsal. Portion of the bone was sent to microbiology. Patient has chronic stasis dermatitis bilateral. Neurological exam: PRESENT: other - She has diabetic neuropathy with loss of protective sensation bilateral. His reflexes are absent bilateral. Skin exam: PRESENT: other - There is edema, erythema, temperature elevation and some cellulitis about the lateral aspect of the fifth metatarsal phalangeal joint and the fifth toe. There is a draining ulceration on the lateral aspect of the fifth MTP joint, right foot. Ulceration measures approximately 1.5 cm in diameter and probes to bone approximately 3 cm. The wound appearance is improved from previous exam on Wednesday. Results Laboratory Results: 03/16/18 04:45 03/16/18 04:45 03/16/18 03/16/18 04:45 04:45 WBC 7.6 RBC 5.02 Hgb 14.2 Hct 42.7 MCV 85 MCH 28.3 MCHC 33.3 RDW 16.3 H Plt Count 244 Seg Neutrophils % 69.8 Lymphocytes % 18.4 Monocytes % 8.9 Eosinophils % 2.4 Basophils % 0.5 Absolute Neutrophils 5.3 Absolute Lymphocytes 1.4 Absolute Monocytes 0.7 Absolute Eosinophils 0.2 Absolute Basophils 0.0 Sodium 141.0 Potassium 4.8 Chloride 103 Carbon Dioxide 26 Anion Gap 12 BUN 27 H Creatinine 1.06 Est GFR ( Amer) > 60 Est GFR (Non-Af Amer) > 60 Glucose 127 H Calcium 9.0 Magnesium 1.8 Total Bilirubin 0.6 AST 22 ALT 34 Alkaline Phosphatase 28 L Total Protein 6.2 L Albumin 3.4 L 03/15/18 03/16/18 03/16/18 22:42 04:45 04:45 Troponin I < 0.012 0.017 NT-Pro-B Natriuret Pep 119 Impressions: Foot X-Ray 03/15/18 14:29 IMPRESSION: Absence of the head of the 5th metatarsal as described above. No history available. . Surgical manipulation versus infection see above discussion. Status: Image reviewed by me - Reviewed recent x-rays, the distal portion of the fifth metatarsal was [facility] on Wednesday. There is Acticoat Flex in the wound that is partially obscuring the base of the proximal phalanx, but there seems to be some demineralization with possible fragmentation that may indicate secondary bone infection. Assessment & Plan - Diagnosis (1) Osteomyelitis due to type 2 diabetes mellitus Is this a current diagnosis for this admission?: Yes - Plan Summary Plan Summary: Plan is to include intravenous antibiotics, obtain infectious disease consult, follow-up radiological studies, vascular exam, and continue with the local wound care. Patient's wound was examined today dressing was changed the wound was packed with Acticoat Flex 3 and covered with sterile gauze Kerlix and Coban. This can be changed every 3 days depending on drainage of the wound. Patient may require amputation of fifth toe with further debridement of the fifth metatarsal if he does not respond to the antibiotics and local wound care. Bandage on the left foot wound was not removed or examined since it was just examined and changed on Wednesday03/14/2018. This can be changed either or Wednesday with application of collagen and sterile dressing. Patient has [employer] healing shoes and these are okay to be worn for ambulation during his hospital stay. To have discharge planning for patient's follow-up intravenous antibiotics and wound care following discharge.
[2018-03-16] MEDS: METFORMIN HCL 850 MG TABLET PO SCH (16:49)
[2018-03-16] MEDS: OXYCODONE HCL IR 5 MG TABLET PO PRN (18:25)
--- NOTE | 2018-03-16 18:33 | PDOC PROGRESS REPORT ---
Subjective Progress Note for:: 03/16/18 Subjective:: The patient is quite angry that his home medication has not been re-ordered for him precisely as he takes it at home. Per nursing the patient took his own metoprolol and gave himself his own insulin from medications that he had in his personal effects in his room. Reason For Visit: OSTEOMYELITIS FOOT Physical Exam Vital Signs: Temp Pulse Resp BP Pulse Ox 97.8 F 70 16 155/54 H 96 03/16/18 11:42 03/16/18 11:42 03/16/18 11:42 03/16/18 11:42 03/16/18 11:42 Intake & Output 03/15/18 03/16/18 03/17/18 06:59 06:59 06:59 Intake Total 500 100 Balance 500 100 Weight 166.695 kg General appearance: PRESENT: obese Respiratory exam: PRESENT: other - Lung sounds are disntant. I am unable to appreciate wheezes, rhonchi, or rales. No increased work of breathing. Cardiovascular exam: PRESENT: other - Heart sounds are distant. I do not appreciate murmurs, ectopy, or gallups. No lateral PMI. No thrills. GI/Abdominal exam: PRESENT: soft, other - Morbidly obese. I am unable to evaluate the abdomen for masses, hernias, or organomegaly, due to the patient's body habitus. Bowel sounds are distant.. ABSENT: tenderness Extremities exam: ABSENT: clubbing, joint swelling, tenderness Musculoskeletal exam: ABSENT: dislocation, full ROM, normal inspection Neurological exam: PRESENT: alert, awake, oriented to person, oriented to place , oriented to time, oriented to situation, CN II-XII grossly intact. ABSENT: motor sensory deficit Psychiatric exam: PRESENT: agitated, unusual affect Skin exam: PRESENT: dry, intact, warm, other - Right foot is bandaged. Results Laboratory Results: 03/16/18 04:45 03/16/18 04:45 03/16/18 03/16/18 04:45 04:45 WBC 7.6 RBC 5.02 Hgb 14.2 Hct 42.7 MCV 85 MCH 28.3 MCHC 33.3 RDW 16.3 H Plt Count 244 Seg Neutrophils % 69.8 Lymphocytes % 18.4 Monocytes % 8.9 Eosinophils % 2.4 Basophils % 0.5 Absolute Neutrophils 5.3 Absolute Lymphocytes 1.4 Absolute Monocytes 0.7 Absolute Eosinophils 0.2 Absolute Basophils 0.0 Sodium 141.0 Potassium 4.8 Chloride 103 Carbon Dioxide 26 Anion Gap 12 BUN 27 H Creatinine 1.06 Est GFR ( Amer) > 60 Est GFR (Non-Af Amer) > 60 Glucose 127 H Calcium 9.0 Magnesium 1.8 Total Bilirubin 0.6 AST 22 ALT 34 Alkaline Phosphatase 28 L Total Protein 6.2 L Albumin 3.4 L 03/15/18 03/16/18 03/16/18 22:42 04:45 04:45 Troponin I < 0.012 0.017 NT-Pro-B Natriuret Pep 119 Impressions: Foot X-Ray 03/15/18 14:29 IMPRESSION: Absence of the head of the 5th metatarsal as described above. No history available. . Surgical manipulation versus infection see above discussion. Assessment & Plan - Diagnosis (1) Diabetic foot infection Is this a current diagnosis for this admission?: Yes Plan: Control sugars, consult podiatry. IV Zosyn. Will consult ID for assistance on antibiotic coverage. (2) Hyperkalemia Is this a current diagnosis for this admission?: Yes Plan: Resolved. Monitor. (3) Osteomyelitis Qualifiers: Osteomyelitis type: chronic, with draining sinus Osteomyelitis location: foot Laterality: right Qualified Code(s): M86.471 - Chronic osteomyelitis with draining sinus, right ankle and foot Is this a current diagnosis for this admission?: Yes Plan: IV Zosyn. I have discussed the patient with Dr. Pham. I plan to consult ID tomorrow to assist with antibiotic coverage per Dr. Pham's request. (4) Pacemaker Is this a current diagnosis for this admission?: Yes Plan: Noted. (5) COPD (chronic obstructive pulmonary disease) Qualifiers: COPD type: unspecified COPD Qualified Code(s): J44.9 - Chronic obstructive pulmonary disease, unspecified Is this a current diagnosis for this admission?: Yes Plan: Nebulizer treatments prn. (6) Morbid obesity with BMI of 40.0-44.9, adult Is this a current diagnosis for this admission?: Yes Plan: Complicates all cares. The patient has refused anything but a regular diet. (7) Abscess of foot Is this a current diagnosis for this admission?: Yes Plan: As per podiatry. IV Zosyn. (8) Benzodiazepine dependence, continuous Is this a current diagnosis for this admission?: Yes Plan: continue home medication (9) Chronic venous stasis dermatitis Is this a current diagnosis for this admission?: Yes Plan: Diurese as possible to improve antibiotic penetrance. 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 He is adamant that he be continued on his home regimen when he is inpatient. I have explained that we usually do not continue metformin as inpatient due to possible adverse effects on his kidneys given the sorts of interventions that may go on while he is inpatient. I have also explained that I have restarted his home insulin, but that I have reduced his tid dose of regular insulin from 48 units to 35. He would then be covered with sliding scale. This is done to protect the patient from hypoglycemia that may result from reduced dietary intake and interruptions in meal schedules that may occur when inpatient. The patient has demanded that he continue his home medications as he takes them at home, even though he risks renal injury and hypoglycemia. I have thoroughly explained these risks to him. (11) Diabetic foot ulcer Qualifiers: Diabetes mellitus type: type 2 Laterality: left Is this a current diagnosis for this admission?: Yes Plan: Podiatry consult. (12) GERD (gastroesophageal reflux disease) Qualifiers: Esophagitis presence: without esophagitis Qualified Code(s): K21.9 - Gastro -esophageal reflux disease without esophagitis Is this a current diagnosis for this admission?: Yes Plan: PPI. (13) Hyperlipidemia Qualifiers: Hyperlipidemia type: mixed hyperlipidemia Qualified Code(s): E78.2 - Mixed hyperlipidemia Is this a current diagnosis for this admission?: Yes Plan: Continue statin. (14) Hypertension Qualifiers: Hypertension type: essential hypertension Qualified Code(s): I10 - Essential (primary) hypertension Is this a current diagnosis for this admission?: Yes Plan: Continue home medications. (15) ANDIE on CPAP Is this a current diagnosis for this admission?: Yes Plan: Pt to use own CPAP. - Time Time Spent with patient: 35 or more minutes Medications reviewed and adjusted accordingly: Yes
[2018-03-16] MEDS: FERROUS SULFATE 325 MG TABLET PO SCH (21:24)
[2018-03-16] MEDS ORDERED: INSULIN GLARGINE,HUM.REC.ANLOG 300 UNIT/3 ML INSULN.PEN SUBCUT SCH (22:00)
[2018-03-16] MEDS ORDERED: INSULIN GLARGINE,HUM.REC.ANLOG 1,000 UNIT/10 ML UNIT SUBCUT SCH (22:00)
[2018-03-16] MEDS: GABAPENTIN 100 MG CAPSULE PO SCH (23:15)
[2018-03-16] MEDS: INSULIN GLARGINE,HUM.REC.ANLOG 1,000 UNIT/10 ML UNIT SUBCUT SCH (23:16)
[2018-03-16] MEDS ORDERED: INSULIN GLARGINE,HUM.REC.ANLOG 1,000 UNIT/10 ML UNIT SUBCUT ONE (23:45)
[2018-03-17] MEDS: PIPERACILLIN SODIUM/TAZOBACTAM 3.375 GM in NORMAL SALINE 100 ML IV SCH ×4 (03:32→22:54)
[2018-03-17] MEDS: FUROSEMIDE 20 MG TABLET PO SCH (08:11)
[2018-03-17] MEDS: METFORMIN HCL 850 MG TABLET PO SCH ×3 (08:11→17:04)
[2018-03-17] MEDS: METHADONE HCL 10 MG TABLET PO SCH ×3 (09:06→17:04)
[2018-03-17] MEDS: MAGNESIUM OXIDE 400 MG TABLET PO SCH (09:06)
[2018-03-17] MEDS: METOPROLOL TARTRATE 100 MG TABLET PO SCH ×2 (09:07→23:01)
[2018-03-17] MEDS: CHOLECALCIFEROL (D3) 400 UNIT TABLET PO SCH ×2 (09:07→17:05)
[2018-03-17] MEDS: APIXABAN 5 MG TABLET PO SCH ×2 (09:07→17:05)
[2018-03-17] MEDS: MULTIVIT-STRESS FORMULA/ZINC TABLET PO SCH (09:08)
[2018-03-17] MEDS: LANSOPRAZOLE 15 MG TAB.RAP.DR PO SCH ×2 (09:08→17:04)
[2018-03-17] MEDS: ASPIRIN 81 MG TABLET, CHEWABLE PO SCH (09:09)
[2018-03-17] MEDS: TIOTROPIUM BROMIDE DPI 5 CAP/KIT (18 MCG/CAP) IH SCH (09:09)
[2018-03-17] MEDS: METHOCARBAMOL 750 MG TABLET PO SCH ×2 (09:09→17:04)
[2018-03-17] MEDS: ASCORBIC ACID 500 MG TABLET PO SCH (09:09)
[2018-03-17] MEDS: AMLODIPINE BESYLATE 5 MG TABLET PO SCH (09:09)
[2018-03-17] MEDS: EZETIMIBE 10 MG TABLET PO SCH (09:10)
[2018-03-17] MEDS: INSULIN REG, HUMAN 100 UNIT/ML 3 ML VIAL (PYX) SUBCUT SCH ×3 (09:10→17:05)
--- NOTE | 2018-03-17 10:32 | Physician Advisory Note ---
Physician Advisor ProgressNote .: Pursuant to the plan for [facility], I have reviewed the medical record for this patient. Physician Advisor Statement: Beautiful documentation of morbid obesity w/BMI, DM foot infxn w/abscess/ osteomyelitis chronic, benzodiazepine dependence. Please consider documenting, if you agree: 1. "Opioid dependence" (on methadone) Thanks! CK
[2018-03-17] MEDS: FOLIC ACID 1 MG TABLET PO SCH (11:28)
--- NOTE | 2018-03-17 17:43 | PDOC PROGRESS REPORT ---
Subjective Progress Note for:: 03/17/18 Subjective:: The patient has no new complaints. Reason For Visit: OSTEOMYELITIS FOOT Physical Exam Vital Signs: Temp Pulse Resp BP Pulse Ox 98.0 F 64 16 151/74 H 95 03/17/18 10:59 03/17/18 10:59 03/17/18 10:59 03/17/18 10:59 03/17/18 10:59 Intake & Output 03/16/18 03/17/18 03/18/18 06:59 06:59 06:59 Intake Total 500 2538 1440 Balance 500 2538 1440 Weight 166.695 kg 166.9 kg General appearance: PRESENT: no acute distress, morbidly obese Respiratory exam: PRESENT: other - No increased work of breathing.. ABSENT: rales, rhonchi, wheezes Cardiovascular exam: PRESENT: RRR. ABSENT: gallop, rubs, systolic murmur Pulses: PRESENT: other - Diminished distal pulses. GI/Abdominal exam: PRESENT: soft, other - Bowel sounds are distant. Abdomen is morbidly obese. I am unable to evaluate the abdomen for organomegaly, masses, or hernias due to body habitus.. ABSENT: tenderness Extremities exam: PRESENT: other - Venous stasis dermatitis bilaterally. Right foot is bandaged. Neurological exam: PRESENT: alert, awake, oriented to person, oriented to place , oriented to time, oriented to situation, CN II-XII grossly intact. ABSENT: motor sensory deficit Psychiatric exam: PRESENT: unusual affect Skin exam: PRESENT: dry, intact, warm Results Laboratory Results: 03/16/18 04:45 03/16/18 04:45 03/15/18 03/16/18 03/16/18 22:42 04:45 04:45 Troponin I < 0.012 0.017 NT-Pro-B Natriuret Pep 119 Impressions: Foot X-Ray 03/15/18 14:29 IMPRESSION: Absence of the head of the 5th metatarsal as described above. No history available. . Surgical manipulation versus infection see above discussion. Assessment & Plan - Diagnosis (1) Diabetic foot infection Is this a current diagnosis for this admission?: Yes Plan: Control sugars, podiatry consulted. IV Zosyn. I have discussed the patient with Dr. Cruz from ID at [facility]. She agrees with IV zosyn, but suggests an increase in the dosage to 4.5 g q6 due to the patient's size. (2) Hyperkalemia Is this a current diagnosis for this admission?: Yes Plan: Resolved. Monitor. (3) Osteomyelitis Qualifiers: Osteomyelitis type: chronic, with draining sinus Osteomyelitis location: foot Laterality: right Qualified Code(s): M86.471 - Chronic osteomyelitis with draining sinus, right ankle and foot Is this a current diagnosis for this admission?: Yes Plan: Control sugars, consult podiatry. IV Zosyn. I have discussed the patient with Dr. Cruz from ID at [facility]. She agrees with IV zosyn, but suggests an increase in the dosage to 4.5 g q6 due to the patient's size. (4) Pacemaker Is this a current diagnosis for this admission?: Yes Plan: Noted. (5) COPD (chronic obstructive pulmonary disease) Qualifiers: COPD type: unspecified COPD Qualified Code(s): J44.9 - Chronic obstructive pulmonary disease, unspecified Is this a current diagnosis for this admission?: Yes Plan: Nebulizer treatments prn. Stable. (6) Morbid obesity with BMI of 40.0-44.9, adult Is this a current diagnosis for this admission?: Yes Plan: Complicates all cares. I will increse the dose of zosyn to 4.5 gm q6 as per Dr. Cruz's suggestion. The patient has refused anything but a regular diet. (7) Abscess of foot Is this a current diagnosis for this admission?: Yes Plan: As per podiatry. IV Zosyn at 4.5 g q6 as [address] Dr[address] Cruz. (8) Benzodiazepine dependence, continuous Is this a current diagnosis for this admission?: Yes Plan: continue home medication (9) Chronic venous stasis dermatitis Is this a current diagnosis for this admission?: Yes Plan: Diurese as possible to improve antibiotic penetrance. 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 Diabetes mellitus complication status: with circulatory complication Diabetes mellitus complication detail: with peripheral angiopathy without gangrene Qualified Code(s): E11.51 - Type 2 diabetes mellitus with diabetic peripheral angiopathy without gangrene; Z79.4 - ferry terminal agent (current) use of insulin; Z79.4 - ferry terminal agent (current) use of insulin; Z79.4 - [facility] (current) use of insulin; Z79.4 - ferry terminal agent (current) use of insulin Is this a current diagnosis for this admission?: Yes Plan: The patient's DM II is well controlled as per his Hb A1c which is 7.2 and per the patient's personal account. He is adamant that he be continued on his home regimen when he is inpatient. I have explained that we usually do not continue metformin as inpatient due to possible adverse effects on his kidneys given the sorts of interventions that may go on while he is inpatient. I have also explained that I have restarted his home insulin, but that I have reduced his tid dose of regular insulin from 48 units to 35. He would then be covered with sliding scale. This is done to protect the patient from hypoglycemia that may result from reduced dietary intake and interruptions in meal schedules that may occur when inpatient. The patient has demanded that he continue his home medications as he takes them at home, even though he risks renal injury and hypoglycemia. I have thoroughly explained these risks to him. (11) Diabetic foot ulcer Qualifiers: Diabetes mellitus type: type 2 Laterality: left Is this a current diagnosis for this admission?: Yes Plan: Podiatry consult. Increase IV Zosyn to 4.5 grams Q6 as per Dr. Cruz's suggestion. (12) GERD (gastroesophageal reflux disease) Qualifiers: Esophagitis presence: without esophagitis Qualified Code(s): K21.9 - Gastro -esophageal reflux disease without esophagitis Is this a current diagnosis for this admission?: Yes Plan: PPI. (13) Hyperlipidemia Qualifiers: Hyperlipidemia type: mixed hyperlipidemia Qualified Code(s): E78.2 - Mixed hyperlipidemia Is this a current diagnosis for this admission?: Yes Plan: Continue statin. (14) Hypertension Qualifiers: Hypertension type: essential hypertension Qualified Code(s): I10 - Essential (primary) hypertension Is this a current diagnosis for this admission?: Yes Plan: Continue home medications. (15) ANDIE on CPAP Is this a current diagnosis for this admission?: Yes Plan: Pt to use own CPAP. (16) Opiate dependence Is this a current diagnosis for this admission?: Yes Plan: Continue home medications. - Time Time Spent with patient: 25-34 minutes Medications reviewed and adjusted accordingly: Yes
--- NOTE | 2018-03-17 19:04 | Progress Note ---
Provider Note Provider Note: ID Consult Note Requested to review patient's chart by Dr Ellington. Pt not seen or examined. Discussed with Dr Ellington via telephone. Mr Joshua Valverde is a 67 year old man with PMH including morbid obesity, ANDIE, chronic anticoagulation for VTE, former tobacco use, type II DM with peripheral neuropathy, PVD, multiple reported antibiotic allergies, b/l stasis dermatitis and bilateral foot ulcers. Pt was seen at the [facility] on 03/14/18 for follow up, at which time 5th metatarsal head appeared to be protruding from the patient's chronic R lateral foot ulcer with cellulitic changes to the 5th toe and surrounding the wound with serous drainage. Following debridement of distal portion of the 5th metatarsal, pt was directed by his rivet tester to present to the [facility] ED for admission for suspected RLE wound infection and osteomyelitis on 03/14/18. Pt initially declined but then presented on . Pt was found to be afebrile. BCx are negative to date. WBC count is normal. Cr 1.06. Plain films of the foot on 03/15/18 were read as showing irregular margin where head of 5th R metatarsal was debrided and radiolucent changes at the base of the proximal phalanx with possible fragmentation that may be secondary to infection. Empirically Zosyn was started on 03/15. Pt's rivet tester Dr Pham saw pt in consultation and recommended continued IV antibiotics and local wound care. Wound culture of bone from R lateral foot ulcer debrided on 03/14/18 showed 2+ PMNs and few GNRs on Gram stain and grew 2+ Pseudomonas aeruginosa and no anaerobes in culture. The Pseudomonas isolate is sensitive to amikacin, gentamicin, tobramycin, ciprofloxacin, levofloacin, meropenem, Zosyn, ceftazidime, and cefepime but resistant to imipenem. Pt reported having a severe prohibitive reaction (SOB?) to Dr Ellington when queried regarding nature of levofloxacin allergy. Impression/Recommendations Infected diabetic foot ulcer with osteomyelitis of the R 5th metatarsal and proximal phalanx due to Pseudomonas aeruginosa - In terms of antibiotic choice, I agree with IV Zosyn. Recommend attempting to maximize dose and delivery of Zosyn given pt's obesity and Pseudomonas being isolated from the bone. Zosyn dose should be increased to 4.5 g IV q6h. Recommend calling Pharmacy to see if the total daily dose can be given as a continuous infusion to enhance time-dependent killling of Zosyn. - Recommend checking ESR and CRP as a baseline and planning to treat patient with impregnation operator IV antibiotics. PICC line would be needed. Plan for 6 weeks of IV Zosyn 18 g continuous infusion if this can be arranged. While on IV Zosyn, monitor CBC and CMP once weekly. Lavon Cruz MD [facility] Infectious Diseases pager [phone]
[2018-03-17] MEDS: FERROUS SULFATE 325 MG TABLET PO SCH (22:56)
[2018-03-17] MEDS: INSULIN GLARGINE,HUM.REC.ANLOG 1,000 UNIT/10 ML UNIT SUBCUT SCH (23:00)
[2018-03-17] MEDS: GABAPENTIN 100 MG CAPSULE PO SCH (23:01)
[2018-03-17] MEDS: OXYCODONE HCL IR 5 MG TABLET PO PRN (23:02)
[2018-03-18] MEDS: PIPERACILLIN SODIUM/TAZOBACTAM 3.375 GM in NORMAL SALINE 100 ML IV SCH ×2 (05:37→08:54)
[2018-03-18] MEDS: OXYCODONE HCL IR 5 MG TABLET PO PRN (05:46)
[2018-03-18 06:10] LABS: ABSOLUTE EOSINOPHILS # (AUTO) 0.2 10^3/uL (0.0-0.6); ABSOLUTE LYMPHOCYTES (AUTO) 1.4 10^3/uL (0.5-4.7); ABSOLUTE MONOCYTES (AUTO) 0.7 10^3/uL (0.1-1.4); ABSOLUTE NEUT (AUTO) 5.9 10^3/uL (1.7-8.2); BASOPHILS % (AUTO) 0.5 % (0-2); EOSINOPHILS % (AUTO) 2.5 % (0-6); HEMATOCRIT 44.6 % (37.9-51.0); LYMPHOCYTES % (AUTO) 17.1 % (13-45); MEAN CORPUSCULAR HEMOGLOBIN 28.4 pg (27.0-33.4); MEAN CORPUSCULAR HGB CONC 33.6 g/dL (32.0-36.0); MEAN CORPUSCULAR VOLUME 85 fl (80-97); MONOCYTES % (AUTO) 8.6 % (3-13); PLATELET COUNT 253 10^3/uL (150-450); RED BLOOD COUNT 5.27 10^6/uL (4.35-5.55); RED CELL DISTRIBUTION WIDTH 16.3 % (11.5-14.0); SEGMENTED NEUTROPHILS % (AUTO) 71.3 % (42-78); TOTAL CELLS COUNTED % (AUTO) 100 %; WHITE BLOOD COUNT 8.2 10^3/uL (4.0-10.5)
[2018-03-18 06:43] LABS: ANION GAP 15 (5-19); BLOOD UREA NITROGEN 22 mg/dL (7-20); CARBON DIOXIDE 25 mmol/L (22-30); CHLORIDE 99 mmol/L (98-107); GLUCOSE 136 mg/dL (75-110); POTASSIUM 4.8 mmol/L (3.6-5.0); SODIUM 139.4 mmol/L (137-145)
[2018-03-18] MEDS: FUROSEMIDE 20 MG TABLET PO SCH (08:18)
[2018-03-18] MEDS: METFORMIN HCL 850 MG TABLET PO SCH ×3 (08:23→16:49)
[2018-03-18] MEDS: INSULIN REG, HUMAN 100 UNIT/ML 3 ML VIAL (PYX) SUBCUT SCH ×3 (09:03→16:49)
[2018-03-18] MEDS: MAGNESIUM OXIDE 400 MG TABLET PO SCH (09:58)
[2018-03-18] MEDS: FOLIC ACID 1 MG TABLET PO SCH (09:59)
[2018-03-18] MEDS: APIXABAN 5 MG TABLET PO SCH ×2 (09:59→18:57)
[2018-03-18] MEDS: ASCORBIC ACID 500 MG TABLET PO SCH (09:59)
[2018-03-18] MEDS: METHADONE HCL 10 MG TABLET PO SCH ×3 (09:59→18:56)
[2018-03-18] MEDS: ASPIRIN 81 MG TABLET, CHEWABLE PO SCH (09:59)
[2018-03-18] MEDS: METOPROLOL TARTRATE 100 MG TABLET PO SCH ×2 (10:01→23:05)
[2018-03-18] MEDS: METHOCARBAMOL 750 MG TABLET PO SCH ×2 (10:02→18:56)
[2018-03-18] MEDS: LANSOPRAZOLE 15 MG TAB.RAP.DR PO SCH ×2 (10:02→18:57)
[2018-03-18] MEDS: AMLODIPINE BESYLATE 5 MG TABLET PO SCH (10:02)
[2018-03-18] MEDS: MULTIVIT-STRESS FORMULA/ZINC TABLET PO SCH (10:02)
[2018-03-18] MEDS: TIOTROPIUM BROMIDE DPI 5 CAP/KIT (18 MCG/CAP) IH SCH (10:03)
[2018-03-18] MEDS: CHOLECALCIFEROL (D3) 400 UNIT TABLET PO SCH ×2 (10:05→18:57)
[2018-03-18] MEDS: EZETIMIBE 10 MG TABLET PO SCH (10:08)
[2018-03-18] MEDS ORDERED: PIPERACILLIN SODIUM/TAZOBACTAM 4.5 GM in NORMAL SALINE 100 ML IV SCH (12:23)
[2018-03-18] MEDS: PIPERACILLIN SODIUM/TAZOBACTAM 4.5 GM in NORMAL SALINE 100 ML IV SCH ×2 (15:56→23:04)
--- NOTE | 2018-03-18 17:10 | PDOC PROGRESS REPORT ---
Subjective Progress Note for:: 03/18/18 Reason For Visit: OSTEOMYELITIS FOOT Physical Exam Vital Signs: Temp Pulse Resp BP Pulse Ox 97.8 F 64 18 149/68 H 100 03/18/18 08:00 03/18/18 08:00 03/18/18 08:00 03/17/18 23:21 03/18/18 08:00 Intake & Output 03/17/18 03/18/18 03/19/18 06:59 06:59 06:59 Intake Total 2538 3970 200 Balance 2538 3970 200 Weight 166.9 kg 166.9 kg General appearance: PRESENT: no acute distress, morbidly obese Respiratory exam: PRESENT: other - No increased work of breathing.. ABSENT: rales, rhonchi, wheezes Cardiovascular exam: PRESENT: RRR, other - No lateral PMI. No thrills.. ABSENT : gallop, rubs, systolic murmur Pulses: PRESENT: other - Diminished distal pulses. GI/Abdominal exam: PRESENT: other - Bowel sounds are distant. I am unable to evalute the abdomen for organomegaly, masses, or hernias due to the patient's body habitus. Rectal exam: PRESENT: deferred Extremities exam: PRESENT: other - Brawny edema of lower extremities bilaterally. Right foot is bandaged. Musculoskeletal exam: ABSENT: deformity, dislocation, normal inspection Skin exam: PRESENT: dry, intact, warm Results Laboratory Results: 03/18/18 05:13 03/18/18 05:13 03/18/18 03/18/18 05:13 05:13 WBC 8.2 RBC 5.27 Hgb 15.0 Hct 44.6 MCV 85 MCH 28.4 MCHC 33.6 RDW 16.3 H Plt Count 253 Seg Neutrophils % 71.3 Lymphocytes % 17.1 Monocytes % 8.6 Eosinophils % 2.5 Basophils % 0.5 Absolute Neutrophils 5.9 Absolute Lymphocytes 1.4 Absolute Monocytes 0.7 Absolute Eosinophils 0.2 Absolute Basophils 0.0 Sodium 139.4 Potassium 4.8 Chloride 99 Carbon Dioxide 25 Anion Gap 15 BUN 22 H Creatinine 1.00 Est GFR ( Amer) > 60 Est GFR (Non-Af Amer) > 60 Glucose 136 H Calcium 9.0 03/15/18 03/16/18 03/16/18 22:42 04:45 04:45 Troponin I < 0.012 0.017 NT-Pro-B Natriuret Pep 119 Impressions: Foot X-Ray 03/15/18 14:29 IMPRESSION: Absence of the head of the 5th metatarsal as described above. No history available. . Surgical manipulation versus infection see above discussion. Assessment & Plan - Diagnosis (1) Diabetic foot infection Is this a current diagnosis for this admission?: Yes Plan: Control sugars, podiatry consulted. IV Zosyn. I have discussed the patient with Dr. Cruz from ID at [facility]. She agrees with IV zosyn, but suggests an increase in the dosage to 4.5 g q6 due to the patient's size. (2) Hyperkalemia Is this a current diagnosis for this admission?: Yes Plan: Resolved. Monitor. (3) Osteomyelitis Qualifiers: Osteomyelitis type: chronic, with draining sinus Osteomyelitis location: foot Laterality: right Qualified Code(s): M86.471 - Chronic osteomyelitis with draining sinus, right ankle and foot Is this a current diagnosis for this admission?: Yes Plan: Control sugars, consult podiatry. IV Zosyn. I have discussed the patient with Dr. Cruz from ID at [facility]. She agrees with IV zosyn, but suggests an increase in the dosage to 4.5 g q6 due to the patient's size. (4) Pacemaker Is this a current diagnosis for this admission?: Yes Plan: Noted. (5) COPD (chronic obstructive pulmonary disease) Qualifiers: COPD type: unspecified COPD Qualified Code(s): J44.9 - Chronic obstructive pulmonary disease, unspecified Is this a current diagnosis for this admission?: Yes Plan: Nebulizer treatments prn. Stable. (6) Morbid obesity with BMI of 40.0-44.9, adult Is this a current diagnosis for this admission?: Yes Plan: Complicates all cares. I will increse the dose of zosyn to 4.5 gm q6 [address] Cruz's suggestion. The patient has refused anything but a regular diet. 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 for medical terminology insulin use: with adjunct faculty for medical terminology use Diabetes mellitus complication status: with circulatory complication Diabetes mellitus complication detail: with peripheral angiopathy without gangrene Qualified Code(s): E11.51 - Type 2 diabetes mellitus with diabetic peripheral angiopathy without gangrene; Z79.4 - retirement (current) use of insulin; Z79.4 - manager long term care (current) use of insulin; Z79.4 - retirement (current) use of insulin; Z79.4 - manager long term care (current) use of insulin Is this a current diagnosis for this admission?: Yes Plan: The patient's DM II is well controlled as per his Hb A1c which is 7.2 and per the patient's personal account. He is adamant that he be continued on his home regimen when he is inpatient. I have explained that we usually do not continue metformin as inpatient due to possible adverse effects on his kidneys given the sorts of interventions that may go on while he is inpatient. I have also explained that I have restarted his home insulin, but that I have reduced his tid dose of regular insulin from 48 units to 35. He would then be covered with sliding scale. This is done to protect the patient from hypoglycemia that may result from reduced dietary intake and interruptions in meal schedules that may occur when inpatient. The patient has demanded that he continue his home medications as he takes them at home, even though he risks renal injury and hypoglycemia. I have thoroughly explained these risks to him. He also is refusing to accept a diabetic diet. He will only accept a regular diet. (11) Diabetic foot ulcer Qualifiers: Diabetes mellitus type: type 2 Laterality: left Is this a current diagnosis for this admission?: Yes Plan: Podiatry consult. Increase IV Zosyn to 4.5 grams Q6 as [address] Dr[address] Cruz's suggestion. (12) GERD (gastroesophageal reflux disease) Qualifiers: Esophagitis presence: without esophagitis Qualified Code(s): K21.9 - Gastro -esophageal reflux disease without esophagitis Is this a current diagnosis for this admission?: Yes Plan: PPI. (13) Hyperlipidemia Qualifiers: Hyperlipidemia type: mixed hyperlipidemia Qualified Code(s): E78.2 - Mixed hyperlipidemia Is this a current diagnosis for this admission?: Yes Plan: Continue statin. (14) Hypertension Qualifiers: Hypertension type: essential hypertension Qualified Code(s): I10 - Essential (primary) hypertension Is this a current diagnosis for this admission?: Yes Plan: Continue home medications. (15) ANDIE on CPAP Is this a current diagnosis for this admission?: Yes Plan: Pt to use own CPAP. (16) Opiate dependence Is this a current diagnosis for this admission?: Yes Plan: Continue home medications. - Time Time Spent with patient: 25-34 minutes Medications reviewed and adjusted accordingly: Yes
--- NOTE | 2018-03-18 17:37 | PDOC PROGRESS REPORT ---
Subjective Progress Note for:: 03/18/18 Subjective:: Follow up exam for DFU left and right feet with osteomyelitis of the right fifth metatarsal. No complaints of pain in the feet. Patient is resting well but is not happy to be in the hospital. Says no one listens to him. Reason For Visit: Follow up treatment for diabetic foot ulcers on the left and right foot. Patient has documented pseudomonas osteomyelitis of the fifth metatarsal of the right foot. Physical Exam Vital Signs: Temp Pulse Resp BP Pulse Ox 97.8 F 64 18 149/68 H 100 03/18/18 08:00 03/18/18 08:00 03/18/18 08:00 03/17/18 23:21 03/18/18 08:00 Intake & Output 03/17/18 03/18/18 03/19/18 06:59 06:59 06:59 Intake Total 2538 3970 200 Balance 2538 3970 200 Weight 367 lb 15.224 oz 367 lb 15.224 oz Skin exam: PRESENT: other - Left foot ulceration is on the plantar aspect of the hallux. Ulceration is 0.5 cm diameter and 0.1 cm deep, with whitish hyperkeratotic margins. The right foot ulceration is on the lateral aspect of the fifth metatarsal phalangeal joint. Wound is much improved from prior visit. Minimal cellulitis, minimal drainage, no necrotic tissue identified. Wound is probed to a depth of 2 cm to the fifth metatarsal. No other bone is identified the wound. There is no undermining or sinus tracts noted. The wound opening is 1.5 cm x 1 cm x 2 cm deep. Results Laboratory Results: 03/18/18 05:13 03/18/18 05:13 03/18/18 03/18/18 05:13 05:13 WBC 8.2 RBC 5.27 Hgb 15.0 Hct 44.6 MCV 85 MCH 28.4 MCHC 33.6 RDW 16.3 H Plt Count 253 Seg Neutrophils % 71.3 Lymphocytes % 17.1 Monocytes % 8.6 Eosinophils % 2.5 Basophils % 0.5 Absolute Neutrophils 5.9 Absolute Lymphocytes 1.4 Absolute Monocytes 0.7 Absolute Eosinophils 0.2 Absolute Basophils 0.0 Sodium 139.4 Potassium 4.8 Chloride 99 Carbon Dioxide 25 Anion Gap 15 BUN 22 H Creatinine 1.00 Est GFR ( Amer) > 60 Est GFR (Non-Af Amer) > 60 Glucose 136 H Calcium 9.0 03/15/18 03/16/18 03/16/18 22:42 04:45 04:45 Troponin I < 0.012 0.017 NT-Pro-B Natriuret Pep 119 Impressions: Foot X-Ray 03/15/18 14:29 IMPRESSION: Absence of the head of the 5th metatarsal as described above. No history available. . Surgical manipulation versus infection see above discussion. Assessment & Plan - Diagnosis (1) Osteomyelitis due to type 2 diabetes mellitus Is this a current diagnosis for this admission?: Yes - Plan Summary Plan Summary: Dressings were removed bilateral. The left hallux ulcer was debrided with a curette, removing hyperkeratotic tissue and some necrotic debris to good bleeding margins. Bleeding was controlled with pressure. Wound was flushed with saline and Meaghan collagen was applied, covered with sterile gauze and tape. Utilizing new gloves, the patient's right wound was likewise debrided with a curette, there is minimal necrotic debris noted. Wound appears to be healing very well. Acticoat Flex was packed into the wound and the wound was covered with gauze and tape. Both wound dressings can be changed every 2-3 days, using collagen on the left ulcer and Acticoat flex on the right ulcer. Gauze can be changed in the interim as needed for drainage. We will plan on re-x-ray the right foot on Wednesday, the Acticoat Flex will need to be removed from the wound prior to the x-ray. I will follow-up with the patient next week.
[2018-03-18] MEDS: FERROUS SULFATE 325 MG TABLET PO SCH (23:04)
[2018-03-18] MEDS: INSULIN GLARGINE,HUM.REC.ANLOG 1,000 UNIT/10 ML UNIT SUBCUT SCH (23:04)
[2018-03-18] MEDS: GABAPENTIN 100 MG CAPSULE PO SCH (23:05)
[2018-03-19] MEDS: PIPERACILLIN SODIUM/TAZOBACTAM 4.5 GM in NORMAL SALINE 100 ML IV SCH ×4 (06:24→22:12)
[2018-03-19] MEDS: OXYCODONE HCL IR 5 MG TABLET PO PRN ×2 (06:24→22:12)
[2018-03-19] MEDS: METFORMIN HCL 850 MG TABLET PO SCH ×3 (07:38→17:08)
[2018-03-19] MEDS: FUROSEMIDE 20 MG TABLET PO SCH (07:38)
[2018-03-19] MEDS: INSULIN REG, HUMAN 100 UNIT/ML 3 ML VIAL (PYX) SUBCUT SCH ×3 (07:39→17:08)
[2018-03-19] MEDS: AMLODIPINE BESYLATE 5 MG TABLET PO SCH (09:56)
[2018-03-19] MEDS: ASPIRIN 81 MG TABLET, CHEWABLE PO SCH (09:57)
[2018-03-19] MEDS: METHADONE HCL 10 MG TABLET PO SCH ×4 (09:57→17:08)
[2018-03-19] MEDS: METHOCARBAMOL 750 MG TABLET PO SCH ×2 (09:57→22:09)
[2018-03-19] MEDS: LANSOPRAZOLE 15 MG TAB.RAP.DR PO SCH ×2 (09:57→22:08)
[2018-03-19] MEDS: MULTIVIT-STRESS FORMULA/ZINC TABLET PO SCH (09:57)
[2018-03-19] MEDS: MAGNESIUM OXIDE 400 MG TABLET PO SCH (09:57)
[2018-03-19] MEDS: FOLIC ACID 1 MG TABLET PO SCH (09:57)
[2018-03-19] MEDS: EZETIMIBE 10 MG TABLET PO SCH (09:57)
[2018-03-19] MEDS: METOPROLOL TARTRATE 100 MG TABLET PO SCH ×2 (09:58→22:08)
[2018-03-19] MEDS: ASCORBIC ACID 500 MG TABLET PO SCH (09:58)
[2018-03-19] MEDS: TIOTROPIUM BROMIDE DPI 5 CAP/KIT (18 MCG/CAP) IH SCH (10:00)
[2018-03-19] MEDS: APIXABAN 5 MG TABLET PO SCH ×2 (10:00→22:09)
[2018-03-19] MEDS: CHOLECALCIFEROL (D3) 400 UNIT TABLET PO SCH ×2 (10:00→22:08)
--- NOTE | 2018-03-19 17:37 | PDOC PROGRESS REPORT ---
Subjective Progress Note for:: 03/19/18 Subjective:: The patient has no new complaints. Reason For Visit: OSTEOMYELITIS FOOT Physical Exam Vital Signs: Temp Pulse Resp BP Pulse Ox 97.4 F 72 17 121/70 91 L 03/19/18 15:39 03/19/18 15:39 03/19/18 15:39 03/19/18 15:39 03/19/18 15:39 Intake & Output 03/18/18 03/19/18 03/20/18 06:59 06:59 06:59 Intake Total 3970 3496 300 Balance 3970 3496 300 Weight 166.9 kg 166.7 kg General appearance: PRESENT: no acute distress, morbidly obese Respiratory exam: PRESENT: other - No increased work of breathing.. ABSENT: rales, rhonchi, wheezes Cardiovascular exam: PRESENT: RRR. ABSENT: gallop, rubs, systolic murmur GI/Abdominal exam: PRESENT: soft. ABSENT: hernia, mass, organolmegaly, tenderness Extremities exam: ABSENT: clubbing, pedal edema, tenderness Musculoskeletal exam: PRESENT: tenderness. ABSENT: deformity, dislocation, normal inspection Neurological exam: PRESENT: alert, altered, awake, oriented to person, oriented to place, oriented to time, oriented to situation, CN II-XII grossly intact. ABSENT: motor sensory deficit Skin exam: PRESENT: dry, intact, warm Results Laboratory Results: 03/18/18 05:13 03/18/18 05:13 03/15/18 03/16/18 03/16/18 22:42 04:45 04:45 Troponin I < 0.012 0.017 NT-Pro-B Natriuret Pep 119 Impressions: Foot X-Ray 03/15/18 14:29 IMPRESSION: Absence of the head of the 5th metatarsal as described above. No history available. . Surgical manipulation versus infection see above discussion. Assessment & Plan - Diagnosis (1) Diabetic foot infection Is this a current diagnosis for this admission?: Yes Plan: Control sugars, podiatry consulted. IV Zosyn. I have discussed the patient with Dr. Cruz from ID at [facility]. She agrees with IV zosyn, but suggests an increase in the dosage to 4.5 g q6 due to the patient's size. Repeat x-rays per podiatry on Wednesday. (2) Hyperkalemia Is this a current diagnosis for this admission?: Yes (3) Osteomyelitis Qualifiers: Osteomyelitis type: chronic, with draining sinus Osteomyelitis location: foot Laterality: right Qualified Code(s): M86.471 - Chronic osteomyelitis with draining sinus, right ankle and foot Is this a current diagnosis for this admission?: Yes Plan: Control sugars, consult podiatry. IV Zosyn. I have discussed the patient with Dr. Cruz from ID at [facility]. She agrees with IV zosyn, but suggests an increase in the dosage to 4.5 g q6 due to the patient's size. Repeat x-rays on Wednesday as per podiatry. (4) Pacemaker Is this a current diagnosis for this admission?: Yes Plan: Noted. (5) COPD (chronic obstructive pulmonary disease) Qualifiers: COPD type: unspecified COPD Qualified Code(s): J44.9 - Chronic obstructive pulmonary disease, unspecified Is this a current diagnosis for this admission?: Yes Plan: Nebulizer treatments prn. Stable. (6) Morbid obesity with BMI of 40.0-44.9, adult Is this a current diagnosis for this admission?: Yes (7) Abscess of foot Is this a current diagnosis for this admission?: Yes Plan: As per podiatry. IV Zosyn at 4.5 g q6 [address] Cruz. S/P I & D by podiatry. (8) Benzodiazepine dependence, continuous Is this a current diagnosis for this admission?: Yes (9) Chronic venous stasis dermatitis Is this a current diagnosis for this admission?: Yes (10) Diabetes mellitus Qualifiers: Diabetes mellitus type: type 2 Diabetes mellitus alf insulin use: with alf use Diabetes mellitus complication status: with circulatory complication Diabetes mellitus complication detail: with peripheral angiopathy without gangrene Qualified Code(s): E11.51 - Type 2 diabetes mellitus with diabetic peripheral angiopathy without gangrene; Z79.4 - senior care (current) use of insulin; Z79.4 - senior care (current) use of insulin; Z79.4 - terminal carman (current) use of insulin; Z79.4 - terminal carman (current) use of insulin Is this a current diagnosis for this admission?: Yes (11) Diabetic foot ulcer Qualifiers: Diabetes mellitus type: type 2 Laterality: left Is this a current diagnosis for this admission?: Yes Plan: Podiatry consult. Increase IV Zosyn to 4.5 grams Q6 as per Dr. Cruz's suggestion. Repeat x-rays on Wednesday. (12) GERD (gastroesophageal reflux disease) Qualifiers: Esophagitis presence: without esophagitis Qualified Code(s): K21.9 - Gastro -esophageal reflux disease without esophagitis Is this a current diagnosis for this admission?: Yes Plan: PPI. (13) Hyperlipidemia Qualifiers: Hyperlipidemia type: mixed hyperlipidemia Qualified Code(s): E78.2 - Mixed hyperlipidemia Is this a current diagnosis for this admission?: Yes (14) Hypertension Qualifiers: Hypertension type: essential hypertension Qualified Code(s): I10 - Essential (primary) hypertension Is this a current diagnosis for this admission?: Yes (15) ANDIE on CPAP Is this a current diagnosis for this admission?: Yes (16) Opiate dependence Is this a current diagnosis for this admission?: Yes - Time Time Spent with patient: 25-34 minutes Medications reviewed and adjusted accordingly: Yes
[2018-03-19] MEDS: FERROUS SULFATE 325 MG TABLET PO SCH (22:08)
[2018-03-19] MEDS: INSULIN GLARGINE,HUM.REC.ANLOG 1,000 UNIT/10 ML UNIT SUBCUT SCH (22:09)
[2018-03-19] MEDS: GABAPENTIN 100 MG CAPSULE PO SCH (22:09)
[2018-03-20] MEDS: PIPERACILLIN SODIUM/TAZOBACTAM 4.5 GM in NORMAL SALINE 100 ML IV SCH ×4 (03:18→22:00)
[2018-03-20] MEDS: METFORMIN HCL 850 MG TABLET PO SCH ×3 (07:46→17:24)
[2018-03-20] MEDS: FUROSEMIDE 20 MG TABLET PO SCH (07:46)
[2018-03-20] MEDS: INSULIN REG, HUMAN 100 UNIT/ML 3 ML VIAL (PYX) SUBCUT SCH ×3 (07:47→17:26)
[2018-03-20] MEDS: CHOLECALCIFEROL (D3) 400 UNIT TABLET PO SCH ×2 (09:19→17:26)
[2018-03-20] MEDS: ASPIRIN 81 MG TABLET, CHEWABLE PO SCH (09:19)
[2018-03-20] MEDS: AMLODIPINE BESYLATE 5 MG TABLET PO SCH (09:19)
[2018-03-20] MEDS: LANSOPRAZOLE 15 MG TAB.RAP.DR PO SCH ×2 (09:19→17:25)
[2018-03-20] MEDS: TIOTROPIUM BROMIDE DPI 5 CAP/KIT (18 MCG/CAP) IH SCH (09:19)
[2018-03-20] MEDS: METHADONE HCL 10 MG TABLET PO SCH ×3 (09:19→17:26)
[2018-03-20] MEDS: APIXABAN 5 MG TABLET PO SCH ×2 (09:19→17:26)
[2018-03-20] MEDS: FOLIC ACID 1 MG TABLET PO SCH (09:19)
[2018-03-20] MEDS: EZETIMIBE 10 MG TABLET PO SCH (09:20)
[2018-03-20] MEDS: METOPROLOL TARTRATE 100 MG TABLET PO SCH ×2 (09:20→22:01)
[2018-03-20] MEDS: METHOCARBAMOL 750 MG TABLET PO SCH ×2 (09:20→17:25)
[2018-03-20] MEDS: MULTIVIT-STRESS FORMULA/ZINC TABLET PO SCH (09:20)
[2018-03-20] MEDS: MAGNESIUM OXIDE 400 MG TABLET PO SCH (09:20)
[2018-03-20] MEDS: ASCORBIC ACID 500 MG TABLET PO SCH (09:21)
[2018-03-20] MEDS: INSULIN REG, HUMAN 100 UNIT/ML 3 ML VIAL (PYX) SUBCUT PRN (11:40)
[2018-03-20] MEDS: OXYCODONE HCL IR 5 MG TABLET PO PRN (14:48)
--- NOTE | 2018-03-20 15:49 | PDOC PROGRESS REPORT ---
Subjective Progress Note for:: 03/20/18 Subjective:: The patient has no new complaints. He was only given 1/2 of his usual home dose of Lantus last night, and the patient has demanded that he have a regular diet. His glucoses are in the mid-200's today. Reason For Visit: OSTEOMYELITIS FOOT Physical Exam Vital Signs: Temp Pulse Resp BP Pulse Ox 97.5 F 64 16 127/68 H 95 03/20/18 11:54 03/20/18 11:54 03/20/18 11:54 03/20/18 11:54 03/20/18 11:54 Intake & Output 03/19/18 03/20/18 03/21/18 06:59 06:59 06:59 Intake Total 3496 1854 200 Balance 3496 1854 200 Weight 166.7 kg General appearance: PRESENT: no acute distress, morbidly obese Respiratory exam: PRESENT: other - No increased work of breathing.. ABSENT: rales, rhonchi, wheezes Cardiovascular exam: PRESENT: RRR, other. ABSENT: gallop, rubs, systolic murmur Rectal exam: PRESENT: deferred Extremities exam: PRESENT: full ROM, +1 edema. ABSENT: clubbing Musculoskeletal exam: PRESENT: normal inspection. ABSENT: deformity, dislocation Neurological exam: PRESENT: alert, awake, oriented to person, oriented to place , oriented to time, oriented to situation, CN II-XII grossly intact Psychiatric exam: PRESENT: unusual affect Skin exam: PRESENT: dry, intact, warm Results Laboratory Results: 03/18/18 05:13 03/18/18 05:13 03/15/18 03/16/18 03/16/18 22:42 04:45 04:45 Troponin I < 0.012 0.017 NT-Pro-B Natriuret Pep 119 Impressions: Foot X-Ray 03/15/18 14:29 IMPRESSION: Absence of the head of the 5th metatarsal as described above. No history available. . Surgical manipulation versus infection see above discussion. Assessment & Plan - Diagnosis (1) Diabetic foot infection Is this a current diagnosis for this admission?: Yes Plan: Control sugars, podiatry consulted. IV Zosyn. I have discussed the patient with Dr. Cruz from ID at [facility]. She agrees with IV zosyn, but suggests an increase in the dosage to 4.5 g q6 due to the patient's size. Repeat x-rays per podiatry on Wednesday. (2) Hyperkalemia Is this a current diagnosis for this admission?: Yes Plan: Resolved. Monitor. (3) Osteomyelitis Qualifiers: Osteomyelitis type: chronic, with draining sinus Osteomyelitis location: foot Laterality: right Qualified Code(s): M86.471 - Chronic osteomyelitis with draining sinus, right ankle and foot Is this a current diagnosis for this admission?: Yes Plan: Control sugars, consult podiatry. IV Zosyn. I have discussed the patient with Dr. Cruz from ID at [facility]. She agrees with IV zosyn, but suggests an increase in the dosage to 4.5 g q6 due to the patient's size. Repeat x-rays on Wednesday as per podiatry. (4) Pacemaker Is this a current diagnosis for this admission?: Yes Plan: Noted. (5) COPD (chronic obstructive pulmonary disease) Qualifiers: COPD type: unspecified COPD Qualified Code(s): J44.9 - Chronic obstructive pulmonary disease, unspecified Is this a current diagnosis for this admission?: Yes Plan: Nebulizer treatments prn. Stable. (6) Morbid obesity with BMI of 40.0-44.9, adult Is this a current diagnosis for this admission?: Yes Plan: Complicates all cares. I will increase the dose of zosyn to 4.5 gm q6 as [address] Dr[address] Cruz's suggestion. The patient has refused anything but a regular diet. (7) Abscess of foot Is this a current diagnosis for this admission?: Yes Plan: As per podiatry. IV Zosyn at 4.5 g q6 [address] Cruz. S/P I & D by podiatry. Follow up x-ray tomorrow to be evaluated by podiatry to determine need for further surgical debridement. (8) Benzodiazepine dependence, continuous Is this a current diagnosis for this admission?: Yes Plan: continue home medication (9) Chronic venous stasis dermatitis Is this a current diagnosis for this admission?: Yes Plan: Diurese as possible to improve antibiotic penitrance. (10) Diabetes mellitus Qualifiers: Diabetes mellitus type: type 2 Diabetes mellitus correction insulin use: with correction use Diabetes mellitus complication status: with circulatory complication Diabetes mellitus complication detail: with peripheral angiopathy without gangrene Qualified Code(s): E11.51 - Type 2 diabetes mellitus with diabetic peripheral angiopathy without gangrene; Z79.4 - continuous churn buttermaker (current) use of insulin; Z79.4 - continuous churn buttermaker (current) use of insulin; Z79.4 - continuous churn buttermaker (current) use of insulin; Z79.4 - continuous churn buttermaker (current) use of insulin Is this a current diagnosis for this admission?: Yes Plan: The patient's DM II is well controlled as per his Hb A1c which is 7.2 and per the patient's personal account. He is adamant that he be continued on his home regimen when he is inpatient. I have explained that we usually do not continue metformin as inpatient due to possible adverse effects on his kidneys given the sorts of interventions that may go on while he is inpatient. I have also explained that I have restarted his home insulin, but that I have reduced his tid dose of regular insulin from 48 units to 35. He would then be covered with sliding scale. This is done to protect the patient from hypoglycemia that may result from reduced dietary intake and interruptions in meal schedules that may occur when inpatient. The patient has demanded that he continue his home medications as he takes them at home, even though he risks renal injury and hypoglycemia. I have thoroughly explained these risks to him. He also is refusing to accept a diabetic diet. He will only accept a regular diet. His blood sugars are in the mid 200's today. Half of his lantus was held last night due to FSBS of 98 at 2200. (11) Diabetic foot ulcer Qualifiers: Diabetes mellitus type: type 2 Laterality: left Is this a current diagnosis for this admission?: Yes Plan: Podiatry consult. Increase IV Zosyn to 4.5 grams Q6 as per Dr. Cruz's suggestion. Repeat x-rays on Wednesday. (12) GERD (gastroesophageal reflux disease) Qualifiers: Esophagitis presence: without esophagitis Qualified Code(s): K21.9 - Gastro -esophageal reflux disease without esophagitis Is this a current diagnosis for this admission?: Yes Plan: PPI. (13) Hyperlipidemia Qualifiers: Hyperlipidemia type: mixed hyperlipidemia Qualified Code(s): E78.2 - Mixed hyperlipidemia Is this a current diagnosis for this admission?: Yes Plan: Continue statin. (14) Hypertension Qualifiers: Hypertension type: essential hypertension Qualified Code(s): I10 - Essential (primary) hypertension Is this a current diagnosis for this admission?: Yes Plan: Continue home medications. (15) ANDIE on CPAP Is this a current diagnosis for this admission?: Yes Plan: Pt to use own CPAP. (16) Opiate dependence Is this a current diagnosis for this admission?: Yes Plan: Continue home medications. - Time Time Spent with patient: 25-34 minutes Medications reviewed and adjusted accordingly: Yes
[2018-03-20] MEDS: FERROUS SULFATE 325 MG TABLET PO SCH (22:00)
[2018-03-20] MEDS: GABAPENTIN 100 MG CAPSULE PO SCH (22:01)
[2018-03-20] MEDS: INSULIN GLARGINE,HUM.REC.ANLOG 1,000 UNIT/10 ML UNIT SUBCUT SCH (22:01)
[2018-03-20] MEDS: FLUTICASONE NASAL SPRAY 50 MCG/SPRY 120 SPRAY/16 GM NAREB SCH (22:01)
[2018-03-21] MEDS: PIPERACILLIN SODIUM/TAZOBACTAM 4.5 GM in NORMAL SALINE 100 ML IV SCH ×4 (03:50→20:48)
[2018-03-21] MEDS: METFORMIN HCL 850 MG TABLET PO SCH ×3 (08:18→17:04)
[2018-03-21] MEDS: FUROSEMIDE 20 MG TABLET PO SCH (08:18)
[2018-03-21] MEDS: INSULIN REG, HUMAN 100 UNIT/ML 3 ML VIAL (PYX) SUBCUT SCH ×3 (08:41→17:05)
[2018-03-21] MEDS: ASPIRIN 81 MG TABLET, CHEWABLE PO SCH (09:50)
[2018-03-21] MEDS: METHADONE HCL 10 MG TABLET PO SCH ×3 (09:50→20:47)
[2018-03-21] MEDS: MAGNESIUM OXIDE 400 MG TABLET PO SCH (09:50)
[2018-03-21] MEDS: APIXABAN 5 MG TABLET PO SCH ×2 (09:52→23:35)
[2018-03-21] MEDS: CHOLECALCIFEROL (D3) 400 UNIT TABLET PO SCH ×2 (09:52→17:11)
[2018-03-21] MEDS: ASCORBIC ACID 500 MG TABLET PO SCH (09:52)
[2018-03-21] MEDS: METHOCARBAMOL 750 MG TABLET PO SCH ×2 (09:53→17:11)
[2018-03-21] MEDS: AMLODIPINE BESYLATE 5 MG TABLET PO SCH (09:53)
[2018-03-21] MEDS: FOLIC ACID 1 MG TABLET PO SCH (09:53)
[2018-03-21] MEDS: LANSOPRAZOLE 15 MG TAB.RAP.DR PO SCH ×2 (09:53→17:04)
[2018-03-21] MEDS: FLUTICASONE NASAL SPRAY 50 MCG/SPRY 120 SPRAY/16 GM NAREB SCH ×2 (09:54→23:35)
[2018-03-21] MEDS: METOPROLOL TARTRATE 100 MG TABLET PO SCH ×2 (09:54→23:36)
[2018-03-21] MEDS: TIOTROPIUM BROMIDE DPI 5 CAP/KIT (18 MCG/CAP) IH SCH (09:58)
[2018-03-21] MEDS: EZETIMIBE 10 MG TABLET PO SCH (10:03)
[2018-03-21] MEDS: MULTIVIT-STRESS FORMULA/ZINC TABLET PO SCH (10:03)
[2018-03-21 10:15] LABS: ABSOLUTE EOSINOPHILS # (AUTO) 0.2 10^3/uL (0.0-0.6); ABSOLUTE LYMPHOCYTES (AUTO) 1.3 10^3/uL (0.5-4.7); ABSOLUTE MONOCYTES (AUTO) 0.6 10^3/uL (0.1-1.4); ABSOLUTE NEUT (AUTO) 6.2 10^3/uL (1.7-8.2); BASOPHILS % (AUTO) 0.6 % (0-2); EOSINOPHILS % (AUTO) 2.4 % (0-6); HEMATOCRIT 47.8 % (37.9-51.0); HEMOGLOBIN 16.3 g/dL (13.5-17.0); LYMPHOCYTES % (AUTO) 15.2 % (13-45); MEAN CORPUSCULAR HEMOGLOBIN 28.7 pg (27.0-33.4); MEAN CORPUSCULAR VOLUME 85 fl (80-97); MONOCYTES % (AUTO) 6.7 % (3-13); PLATELET COUNT 290 10^3/uL (150-450); RED BLOOD COUNT 5.65 10^6/uL (4.35-5.55); RED CELL DISTRIBUTION WIDTH 15.9 % (11.5-14.0); SEGMENTED NEUTROPHILS % (AUTO) 75.1 % (42-78); TOTAL CELLS COUNTED % (AUTO) 100 %; WHITE BLOOD COUNT 8.3 10^3/uL (4.0-10.5)
[2018-03-21 10:35] LABS: ANION GAP 16 (5-19); BLOOD UREA NITROGEN 19 mg/dL (7-20); CALCIUM 9.4 mg/dL (8.4-10.2); CARBON DIOXIDE 25 mmol/L (22-30); CHLORIDE 99 mmol/L (98-107); GLUCOSE 161 mg/dL (75-110); POTASSIUM 4.7 mmol/L (3.6-5.0)
--- NOTE | 2018-03-21 10:50 | RADIOLOGY REPORT (SQ) ---
EXAM DESCRIPTION: FOOT RIGHT COMPLETE COMPLETED DATE/TIME: 03/21/2018 10:35 am REASON FOR STUDY: assess healing COMPARISON: None. NUMBER OF VIEWS: Three views. TECHNIQUE: AP, lateral and oblique radiographic images acquired of the right foot. LIMITATIONS: None. FINDINGS: MINERALIZATION: Osteopenia. BONES: As on the previous examination, absence of the distal third of the fifth metatarsal bone may be related to post surgical changes versus infection. The distal end of the fifth metatarsal bone romero s a slightly irregular appearancer with lucency identified. The external bandage dressing has been r emoved. Soft tissue injury and swelling are again noted. JOINTS: No effusions. SOFT TISSUES: Soft tissue swelling of the foot. Soft tissue vascular calcifications. OTHER: No other significant finding. IMPRESSION: 1 Since the prior examination dated 03/15/2018, the margins of the distal end of the fifth metatarsal bone appear slightly more irregular and lucent in appearance, raising the question of inf ection. 2 Soft tissue injury and swelling are again identified at the fifth metatarsal site. Soft tissue swe lling of the right foot. TECHNICAL DOCUMENTATION: JOB ID: [id number] [employer]- All Rights Reserved Reading location - IP/workstation name: [email or web address]
[2018-03-21] MEDS: INSULIN REG, HUMAN 100 UNIT/ML 3 ML VIAL (PYX) SUBCUT PRN (12:59)
[2018-03-21] MEDS ORDERED: METHADONE HCL 10 MG TABLET PO PRN (16:36)
--- NOTE | 2018-03-21 17:18 | PDOC PROGRESS REPORT ---
Subjective Progress Note for:: 03/21/18 Subjective:: Follow up exam for DFU left and right feet with osteomyelitis of the right fifth metatarsal. No complaints of pain in either foot. Patient is resting well. Reason For Visit: Follow up visit for osteomyelitis of the right 5th metatarsal with DFU of the lateral right 5th MTP and DFU of the plantar 1st toe left foot. Physical Exam Vital Signs: Temp Pulse Resp BP Pulse Ox 98 F 77 18 152/80 H 93 03/21/18 08:00 03/21/18 08:00 03/21/18 08:00 03/21/18 08:00 03/21/18 08:00 Intake & Output 03/20/18 03/21/18 03/22/18 06:59 06:59 06:59 Intake Total 1854 1835 100 Balance 1854 1835 100 Weight 365 lb 11.95 oz Skin exam: PRESENT: other - Ulceration lateral 5th MTP joint right foot continues to improve with decreased edema, minimal cellulitis, no necrotic tissue and just slight serous drainage. Wound depth is decreased to 1.5cm with margins of 1.4cm x 0.9cm. Left great toe ulcer not examined today. Wound is responding well to the IV Zoysn. Results Laboratory Results: 03/21/18 09:28 03/21/18 09:28 03/21/18 03/21/18 09:28 09:28 WBC 8.3 RBC 5.65 H Hgb 16.3 Hct 47.8 MCV 85 MCH 28.7 MCHC 34.0 RDW 15.9 H Plt Count 290 Seg Neutrophils % 75.1 Lymphocytes % 15.2 Monocytes % 6.7 Eosinophils % 2.4 Basophils % 0.6 Absolute Neutrophils 6.2 Absolute Lymphocytes 1.3 Absolute Monocytes 0.6 Absolute Eosinophils 0.2 Absolute Basophils 0.0 Sodium 140.0 Potassium 4.7 Chloride 99 Carbon Dioxide 25 Anion Gap 16 BUN 19 Creatinine 0.85 Est GFR ( Amer) > 60 Est GFR (Non-Af Amer) > 60 Glucose 161 H Calcium 9.4 03/15/18 16:40 Blood Blood Culture - Final NO GROWTH IN 5 DAYS 03/15/18 03/16/18 03/16/18 22:42 04:45 04:45 Troponin I < 0.012 0.017 NT-Pro-B Natriuret Pep 119 Impressions: Foot X-Ray 03/21/18 00:00 IMPRESSION: 1 Since the prior examination dated 03/15/2018, the margins of the distal end of the fifth metatarsal bone appear slightly more irregular and lucent in appearance, raising the question of infection. 2 Soft tissue injury and swelling are again identified at the fifth metatarsal site. Soft tissue swelling of the right foot. Status: Image reviewed by me - I concur with radiologist findings and would add that the base of the proximal phalanx of the right 5th toe appears unchanged from prior study. Assessment & Plan - Diagnosis (1) Osteomyelitis due to type 2 diabetes mellitus Is this a current diagnosis for this admission?: Yes - Plan Summary Plan Summary: Removed dressing right foot, examined DFU, no debridement required today. Repacked with acticoat flex, sterile gauze, kerlix and coban. Will continue local wound care with acticoat flex changed q3days on the right and qing changed q3days on the left. I do not feel patient needs 5th toe amputation at this time as he has responded well to Zoysn and the 5th toe phalanges appear to be unchanged on x-ray from the prior exam. Patient [facility] be [facility] foot ulcerations. The need for 6 weeks of IV Zoysn complicates his discharge planning. Patient should have an x-ray performed prior to discharge with the acticoat packing removed for the x-ray and replaced when the study is complete. Continue to offload wounds with [employer] [employer] which patient has with him.
--- NOTE | 2018-03-21 22:23 | PDOC PROGRESS REPORT ---
Subjective Progress Note for:: 03/21/18 Subjective:: The patient is resting comfortably. No new complaings. Reason For Visit: OSTEOMYELITIS FOOT Physical Exam Vital Signs: Temp Pulse Resp BP Pulse Ox 98.8 F 63 18 128/64 H 92 03/21/18 20:01 03/21/18 20:01 03/21/18 20:01 03/21/18 20:01 03/21/18 20:01 Intake & Output 03/20/18 03/21/18 03/22/18 06:59 06:59 06:59 Intake Total 1853 1834 2020 Balance 1853 1834 2020 Weight 165.9 kg General appearance: PRESENT: no acute distress, morbidly obese Head exam: PRESENT: atraumatic, normocephalic Respiratory exam: PRESENT: other - No increased work of breathing. No wheezes, rales, or rhonchi. No tactile fremitus. Cardiovascular exam: PRESENT: RRR. ABSENT: gallop, rubs, systolic murmur GI/Abdominal exam: PRESENT: soft. ABSENT: distended, mass, tenderness Rectal exam: PRESENT: deferred Extremities exam: PRESENT: other - Right lower extreity is bandaged.. ABSENT: clubbing, joint swelling, tenderness Musculoskeletal exam: PRESENT: normal inspection. ABSENT: dislocation Neurological exam: PRESENT: alert, awake, oriented to person, oriented to place , oriented to time, oriented to situation, CN II-XII grossly intact. ABSENT: motor sensory deficit Skin exam: ABSENT: dry, intact, warm Results Laboratory Results: 03/21/18 09:28 03/21/18 09:28 03/21/18 03/21/18 09:28 09:28 WBC 8.3 RBC 5.65 H Hgb 16.3 Hct 47.8 MCV 85 MCH 28.7 MCHC 34.0 RDW 15.9 H Plt Count 290 Seg Neutrophils % 75.1 Lymphocytes % 15.2 Monocytes % 6.7 Eosinophils % 2.4 Basophils % 0.6 Absolute Neutrophils 6.2 Absolute Lymphocytes 1.3 Absolute Monocytes 0.6 Absolute Eosinophils 0.2 Absolute Basophils 0.0 Sodium 140.0 Potassium 4.7 Chloride 99 Carbon Dioxide 25 Anion Gap 16 BUN 19 Creatinine 0.85 Est GFR ( Amer) > 60 Est GFR (Non-Af Amer) > 60 Glucose 161 H Calcium 9.4 03/15/18 03/16/18 03/16/18 22:42 04:45 04:45 Troponin I < 0.012 0.017 NT-Pro-B Natriuret Pep 119 Impressions: Foot X-Ray 03/21/18 00:00 IMPRESSION: 1 Since the prior examination dated 03/15/2018, the margins of the distal end of the fifth metatarsal bone appear slightly more irregular and lucent in appearance, raising the question of infection. 2 Soft tissue injury and swelling are again identified at the fifth metatarsal site. Soft tissue swelling of the right foot. Assessment & Plan - Diagnosis (1) Diabetic foot infection Is this a current diagnosis for this admission?: Yes Plan: Control sugars, podiatry consulted. IV Zosyn. I have discussed the patient with Dr. Cruz from ID at [facility]. She agrees with IV zosyn, but suggests an increase in the dosage to 4.5 g q6 due to the patient's size. Repeat x-rays per podiatry prior to discharge. (2) Hyperkalemia Is this a current diagnosis for this admission?: Yes Plan: Resolved. Monitor. (3) Osteomyelitis Qualifiers: Osteomyelitis type: chronic, with draining sinus Osteomyelitis location: foot Laterality: right Qualified Code(s): M86.471 - Chronic osteomyelitis with draining sinus, right ankle and foot Is this a current diagnosis for this admission?: Yes Plan: Control sugars, consult podiatry. IV Zosyn. I have discussed the patient with Dr. Cruz from ID at [facility]. She agrees with IV zosyn, but suggests an increase in the dosage to 4.5 g q6 due to the patient's size. Repeat x-rays on Wednesday as per podiatry. (4) Pacemaker Is this a current diagnosis for this admission?: Yes (5) COPD (chronic obstructive pulmonary disease) Qualifiers: COPD type: unspecified COPD Qualified Code(s): J44.9 - Chronic obstructive pulmonary disease, unspecified Is this a current diagnosis for this admission?: Yes Plan: Nebulizer treatments prn. Stable. (6) Morbid obesity with BMI of 40.0-44.9, adult Is this a current diagnosis for this admission?: Yes Plan: Complicates all cares. I will increase the dose of zosyn to 4.5 gm q6 as per Dr. Cruz's suggestion. The patient has refused anything but a regular diet. (7) Abscess of foot Is this a current diagnosis for this admission?: Yes Plan: As per podiatry. IV Zosyn at 4.5 g q[address] Cruz. S/P I & D by podiatry. Follow up x-ray tomorrow to be evaluated by podiatry to determine need for further surgical debridement. (8) Benzodiazepine dependence, continuous Is this a current diagnosis for this admission?: Yes Plan: continue home medication (9) Chronic venous stasis dermatitis Is this a current diagnosis for this admission?: Yes Plan: Diurese as possible to improve antibiotic penitrance. (10) Diabetes mellitus Qualifiers: Diabetes mellitus type: type 2 Diabetes mellitus detention insulin use: with laborer marine terminal use Diabetes mellitus complication status: with circulatory complication Diabetes mellitus complication detail: with peripheral angiopathy without gangrene Qualified Code(s): E11.51 - Type 2 diabetes mellitus with diabetic peripheral angiopathy without gangrene; Z79.4 - care home (current) use of insulin; Z79.4 - intermediate accountant (current) use of insulin; Z79.4 - intermediate accountant (current) use of insulin; Z79.4 - care home (current) use of insulin Is this a current diagnosis for this admission?: Yes Plan: The patient's DM II is well controlled as per his Hb A1c which is 7.2 and per the patient's personal account. He is adamant that he be continued on his home regimen when he is inpatient. I have explained that we usually do not continue metformin as inpatient due to possible adverse effects on his kidneys given the sorts of interventions that may go on while he is inpatient. I have also explained that I have restarted his home insulin, but that I have reduced his tid dose of regular insulin from 48 units to 35. He would then be covered with sliding scale. This is done to protect the patient from hypoglycemia that may result from reduced dietary intake and interruptions in meal schedules that may occur when inpatient. The patient has demanded that he continue his home medications as he takes them at home, even though he risks renal injury and hypoglycemia. I have thoroughly explained these risks to him. He also is refusing to accept a diabetic diet. He will only accept a regular diet. His blood sugars are in the mid 200's today. Half of his lantus was held last night due to FSBS of 98 at 2200. (11) Diabetic foot ulcer Qualifiers: Diabetes mellitus type: type 2 Laterality: left Is this a current diagnosis for this admission?: Yes Plan: Podiatry consult. Increase IV Zosyn to 4.5 grams Q6 as per Dr. Cruz's suggestion. Repeat x-rays on Wednesday. (12) GERD (gastroesophageal reflux disease) Qualifiers: Esophagitis presence: without esophagitis Qualified Code(s): K21.9 - Gastro -esophageal reflux disease without esophagitis Is this a current diagnosis for this admission?: Yes Plan: PPI. (13) Hyperlipidemia Qualifiers: Hyperlipidemia type: mixed hyperlipidemia Qualified Code(s): E78.2 - Mixed hyperlipidemia Is this a current diagnosis for this admission?: Yes Plan: Continue statin. (14) Hypertension Qualifiers: Hypertension type: essential hypertension Qualified Code(s): I10 - Essential (primary) hypertension Is this a current diagnosis for this admission?: Yes Plan: Continue home medications. (15) ANDIE on CPAP Is this a current diagnosis for this admission?: Yes (16) Opiate dependence Is this a current diagnosis for this admission?: Yes Plan: Continue home medications. - Time Time Spent with patient: 25-34 minutes Medications reviewed and adjusted accordingly: Yes
[2018-03-21] MEDS: FERROUS SULFATE 325 MG TABLET PO SCH (23:35)
[2018-03-21] MEDS: INSULIN GLARGINE,HUM.REC.ANLOG 1,000 UNIT/10 ML UNIT SUBCUT SCH (23:36)
[2018-03-21] MEDS: GABAPENTIN 100 MG CAPSULE PO SCH (23:37)
[2018-03-22] MEDS: METHADONE HCL 10 MG TABLET PO SCH ×2 (06:08→22:56)
[2018-03-22] MEDS: PIPERACILLIN SODIUM/TAZOBACTAM 4.5 GM in NORMAL SALINE 100 ML IV SCH ×4 (06:08→22:57)
[2018-03-22] MEDS: FUROSEMIDE 20 MG TABLET PO SCH (08:29)
[2018-03-22] MEDS: METFORMIN HCL 850 MG TABLET PO SCH ×3 (08:29→17:57)
[2018-03-22] MEDS: INSULIN REG, HUMAN 100 UNIT/ML 3 ML VIAL (PYX) SUBCUT SCH ×3 (08:29→17:58)
[2018-03-22] MEDS: ASPIRIN 81 MG TABLET, CHEWABLE PO SCH (10:26)
[2018-03-22] MEDS: APIXABAN 5 MG TABLET PO SCH ×2 (10:26→22:57)
[2018-03-22] MEDS: FLUTICASONE NASAL SPRAY 50 MCG/SPRY 120 SPRAY/16 GM NAREB SCH ×2 (10:26→22:57)
[2018-03-22] MEDS: METOPROLOL TARTRATE 100 MG TABLET PO SCH ×2 (10:27→22:58)
[2018-03-22] MEDS: FOLIC ACID 1 MG TABLET PO SCH (10:27)
[2018-03-22] MEDS: MAGNESIUM OXIDE 400 MG TABLET PO SCH (10:27)
[2018-03-22] MEDS: TIOTROPIUM BROMIDE DPI 5 CAP/KIT (18 MCG/CAP) IH SCH (10:28)
[2018-03-22] MEDS: METHOCARBAMOL 750 MG TABLET PO SCH ×2 (10:28→17:58)
[2018-03-22] MEDS: AMLODIPINE BESYLATE 5 MG TABLET PO SCH (10:28)
[2018-03-22] MEDS: LANSOPRAZOLE 15 MG TAB.RAP.DR PO SCH ×2 (10:28→17:58)
[2018-03-22] MEDS: ASCORBIC ACID 500 MG TABLET PO SCH (10:29)
[2018-03-22] MEDS: MULTIVIT-STRESS FORMULA/ZINC TABLET PO SCH (10:29)
[2018-03-22] MEDS: CHOLECALCIFEROL (D3) 400 UNIT TABLET PO SCH ×2 (10:29→17:58)
[2018-03-22] MEDS: EZETIMIBE 10 MG TABLET PO SCH (10:34)
[2018-03-22] MEDS: INSULIN REG, HUMAN 100 UNIT/ML 3 ML VIAL (PYX) SUBCUT PRN (12:15)
--- NOTE | 2018-03-22 18:39 | PDOC PROGRESS REPORT ---
Subjective Progress Note for:: 03/22/18 Subjective:: This is 67 years old male patient admitted for acute on chronic osteomyelitis involving the right fifth metatarsal bone and diabetic foot ulcer of the left foot. His wound culture grew Pseudomonas aeruginosa which is pansensitive. Since patient has multiple allergies to and vancomycin and Levaquin has been on Zosyn. Reason For Visit: OSTEOMYELITIS FOOT Physical Exam Vital Signs: Temp Pulse Resp BP Pulse Ox 97.8 F 67 20 128/64 H 93 03/22/18 15:21 03/22/18 15:21 03/22/18 12:04 03/21/18 20:01 03/22/18 15:21 Intake & Output 03/21/18 03/22/18 03/23/18 06:59 06:59 06:59 Intake Total 1835 3401 820 Balance 1835 3401 820 Weight 165.9 kg 164.5 kg General appearance: PRESENT: no acute distress Head exam: PRESENT: atraumatic Mouth exam: PRESENT: moist Neck exam: ABSENT: carotid bruit, JVD, lymphadenopathy, thyromegaly Respiratory exam: PRESENT: clear to auscultation roxanna. ABSENT: rales, rhonchi, wheezes Cardiovascular exam: PRESENT: RRR. ABSENT: diastolic murmur, rubs, systolic murmur GI/Abdominal exam: PRESENT: normal bowel sounds, soft. ABSENT: distended, guarding, mass, organolmegaly, rebound, tenderness Musculoskeletal exam: PRESENT: other - Laceration over his 08 metacarpophalangeal joint. Neurological exam: PRESENT: alert, awake, oriented to time, oriented to situation Psychiatric exam: PRESENT: normal mood Results Laboratory Results: 03/21/18 09:28 03/21/18 09:28 03/15/18 03/16/18 03/16/18 22:42 04:45 04:45 Troponin I < 0.012 0.017 NT-Pro-B Natriuret Pep 119 Impressions: Foot X-Ray 03/21/18 00:00 IMPRESSION: 1 Since the prior examination dated 03/15/2018, the margins of the distal end of the fifth metatarsal bone appear slightly more irregular and lucent in appearance, raising the question of infection. 2 Soft tissue injury and swelling are again identified at the fifth metatarsal site. Soft tissue swelling of the right foot. Assessment & Plan - Diagnosis (1) Acute on chronic osteomyelitis Is this a current diagnosis for this admission?: Yes Plan: Involving right fifth metatarsal. Status post wound debridement and incision and drainage. Continue Zosyn (2) Diabetic foot infection Is this a current diagnosis for this admission?: Yes Plan: Involving the left foot. Continue local wound care and antibiotics. (3) Type 2 diabetes mellitus Is this a current diagnosis for this admission?: Yes Plan: Continue current regimen (4) Morbid obesity Is this a current diagnosis for this admission?: Yes Plan: Lifestyle modification advised (5) COPD (chronic obstructive pulmonary disease) Qualifiers: Emphysema type: unspecified Is this a current diagnosis for this admission?: Yes Plan: 2 new as needed bronchodilators. (6) Hypertension Qualifiers: Hypertension type: essential hypertension Qualified Code(s): I10 - Essential (primary) hypertension Is this a current diagnosis for this admission?: Yes Plan: Continue home medications (7) Hyperlipidemia Qualifiers: Hyperlipidemia type: unspecified Qualified Code(s): E78.5 - Hyperlipidemia , unspecified Is this a current diagnosis for this admission?: Yes Plan: Continue home medications
[2018-03-22] MEDS: FERROUS SULFATE 325 MG TABLET PO SCH (22:57)
[2018-03-22] MEDS: INSULIN GLARGINE,HUM.REC.ANLOG 1,000 UNIT/10 ML UNIT SUBCUT SCH (22:58)
[2018-03-22] MEDS: GABAPENTIN 100 MG CAPSULE PO SCH (22:58)
[2018-03-23] MEDS ORDERED: CLONAZEPAM 1 MG TABLET PO PRN (01:23)
[2018-03-23] MEDS ORDERED: ACETAMINOPHEN 325 MG TABLET PO PRN (01:30)
[2018-03-23] MEDS: PIPERACILLIN SODIUM/TAZOBACTAM 4.5 GM in NORMAL SALINE 100 ML IV SCH ×4 (05:49→23:46)
[2018-03-23] MEDS: METHADONE HCL 10 MG TABLET PO SCH ×2 (06:07→18:21)
[2018-03-23] MEDS: INSULIN REG, HUMAN 100 UNIT/ML 3 ML VIAL (PYX) SUBCUT SCH ×3 (07:42→16:34)
[2018-03-23] MEDS: METFORMIN HCL 850 MG TABLET PO SCH ×3 (07:42→16:34)
[2018-03-23] MEDS: FUROSEMIDE 20 MG TABLET PO SCH (07:42)
[2018-03-23] MEDS: INSULIN REG, HUMAN 100 UNIT/ML 3 ML VIAL (PYX) SUBCUT PRN ×2 (07:43→11:28)
[2018-03-23] MEDS: METOPROLOL TARTRATE 100 MG TABLET PO SCH ×2 (09:26→23:50)
[2018-03-23] MEDS: ASPIRIN 81 MG TABLET, CHEWABLE PO SCH (09:26)
[2018-03-23] MEDS: MAGNESIUM OXIDE 400 MG TABLET PO SCH (09:26)
[2018-03-23] MEDS: CHOLECALCIFEROL (D3) 400 UNIT TABLET PO SCH ×2 (09:26→17:42)
[2018-03-23] MEDS: AMLODIPINE BESYLATE 5 MG TABLET PO SCH (09:27)
[2018-03-23] MEDS: MULTIVIT-STRESS FORMULA/ZINC TABLET PO SCH (09:27)
[2018-03-23] MEDS: FOLIC ACID 1 MG TABLET PO SCH (09:27)
[2018-03-23] MEDS: METHOCARBAMOL 750 MG TABLET PO SCH ×2 (09:27→17:42)
[2018-03-23] MEDS: LANSOPRAZOLE 15 MG TAB.RAP.DR PO SCH ×2 (09:27→17:42)
[2018-03-23] MEDS: APIXABAN 5 MG TABLET PO SCH ×2 (09:27→23:47)
[2018-03-23] MEDS: EZETIMIBE 10 MG TABLET PO SCH (09:27)
[2018-03-23] MEDS: ASCORBIC ACID 500 MG TABLET PO SCH (09:28)
[2018-03-23] MEDS: FLUTICASONE NASAL SPRAY 50 MCG/SPRY 120 SPRAY/16 GM NAREB SCH ×2 (09:28→23:47)
[2018-03-23] MEDS: TIOTROPIUM BROMIDE DPI 5 CAP/KIT (18 MCG/CAP) IH SCH (09:28)
--- NOTE | 2018-03-23 14:54 | PDOC PROGRESS REPORT ---
Subjective Progress Note for:: 03/23/18 Subjective:: Patient seen sitting on chair and enjoying his breakfast. No complaints. Patient needs to be transferred to [facility] to complete his 6 weeks of IV antibiotics for acute on chronic osteomyelitis. Reason For Visit: OSTEOMYELITIS FOOT Physical Exam Vital Signs: Temp Pulse Resp BP Pulse Ox 97.6 F 67 15 117/68 96 03/23/18 11:41 03/23/18 11:41 03/23/18 11:41 03/23/18 08:00 03/23/18 11:41 Intake & Output 03/22/18 03/23/18 03/24/18 06:59 06:59 06:59 Intake Total 3401 1486 Balance 3401 1486 Weight 164.5 kg General appearance: PRESENT: no acute distress Head exam: PRESENT: atraumatic Eye exam: PRESENT: conjunctiva pink Mouth exam: PRESENT: moist Neck exam: ABSENT: carotid bruit, JVD, lymphadenopathy, thyromegaly Respiratory exam: PRESENT: clear to auscultation roxanna. ABSENT: rales, rhonchi, wheezes Cardiovascular exam: PRESENT: RRR. ABSENT: diastolic murmur, rubs, systolic murmur Neurological exam: PRESENT: alert, awake, oriented to time, oriented to situation Psychiatric exam: PRESENT: normal mood Results Laboratory Results: 03/21/18 09:28 03/21/18 09:28 03/15/18 03/16/18 03/16/18 22:42 04:45 04:45 Troponin I < 0.012 0.017 NT-Pro-B Natriuret Pep 119 Impressions: Foot X-Ray 03/21/18 00:00 IMPRESSION: 1 Since the prior examination dated 03/15/2018, the margins of the distal end of the fifth metatarsal bone appear slightly more irregular and lucent in appearance, raising the question of infection. 2 Soft tissue injury and swelling are again identified at the fifth metatarsal site. Soft tissue swelling of the right foot. Assessment & Plan - Diagnosis (1) Acute on chronic osteomyelitis Is this a current diagnosis for this admission?: Yes Plan: Involving right fifth metatarsal. Status post wound debridement and incision and drainage. Continue Zosyn (2) Diabetic foot infection Is this a current diagnosis for this admission?: Yes Plan: Involving the left foot. Continue local wound care and antibiotics. (3) Type 2 diabetes mellitus Is this a current diagnosis for this admission?: Yes Plan: Continue current regimen (4) Morbid obesity Is this a current diagnosis for this admission?: Yes Plan: Lifestyle modification advised (5) COPD (chronic obstructive pulmonary disease) Qualifiers: Emphysema type: unspecified Is this a current diagnosis for this admission?: Yes Plan: 2 new as needed bronchodilators. (6) Hypertension Qualifiers: Hypertension type: essential hypertension Qualified Code(s): I10 - Essential (primary) hypertension Is this a current diagnosis for this admission?: Yes Plan: Continue home medications (7) Hyperlipidemia Qualifiers: Hyperlipidemia type: unspecified Qualified Code(s): E78.5 - Hyperlipidemia , unspecified Is this a current diagnosis for this admission?: Yes Plan: Continue home medications
[2018-03-23] MEDS: FERROUS SULFATE 325 MG TABLET PO SCH (23:47)
[2018-03-23] MEDS: GABAPENTIN 100 MG CAPSULE PO SCH (23:50)
[2018-03-23] MEDS: INSULIN GLARGINE,HUM.REC.ANLOG 1,000 UNIT/10 ML UNIT SUBCUT SCH (23:50)
[2018-03-24] MEDS: PIPERACILLIN SODIUM/TAZOBACTAM 4.5 GM in NORMAL SALINE 100 ML IV SCH ×4 (06:17→23:06)
[2018-03-24] MEDS: OXYCODONE HCL IR 5 MG TABLET PO PRN (06:17)
[2018-03-24] MEDS: METHADONE HCL 10 MG TABLET PO SCH ×2 (06:33→18:06)
[2018-03-24] MEDS: INSULIN REG, HUMAN 100 UNIT/ML 3 ML VIAL (PYX) SUBCUT SCH ×3 (07:34→17:17)
[2018-03-24] MEDS: FUROSEMIDE 20 MG TABLET PO SCH (07:34)
[2018-03-24] MEDS: METFORMIN HCL 850 MG TABLET PO SCH ×3 (07:34→17:41)
[2018-03-24] MEDS: INSULIN REG, HUMAN 100 UNIT/ML 3 ML VIAL (PYX) SUBCUT PRN ×3 (07:35→17:18)
[2018-03-24] MEDS: ASCORBIC ACID 500 MG TABLET PO SCH (09:30)
[2018-03-24] MEDS: CHOLECALCIFEROL (D3) 400 UNIT TABLET PO SCH ×2 (09:30→17:17)
[2018-03-24] MEDS: LANSOPRAZOLE 15 MG TAB.RAP.DR PO SCH ×2 (09:30→17:17)
[2018-03-24] MEDS: METOPROLOL TARTRATE 100 MG TABLET PO SCH ×2 (09:31→22:12)
[2018-03-24] MEDS: TIOTROPIUM BROMIDE DPI 5 CAP/KIT (18 MCG/CAP) IH SCH (09:31)
[2018-03-24] MEDS: ASPIRIN 81 MG TABLET, CHEWABLE PO SCH (09:31)
[2018-03-24] MEDS: APIXABAN 5 MG TABLET PO SCH ×2 (09:32→22:12)
[2018-03-24] MEDS: FLUTICASONE NASAL SPRAY 50 MCG/SPRY 120 SPRAY/16 GM NAREB SCH ×2 (09:32→22:13)
[2018-03-24] MEDS: MAGNESIUM OXIDE 400 MG TABLET PO SCH (09:32)
[2018-03-24] MEDS: FOLIC ACID 1 MG TABLET PO SCH (09:32)
[2018-03-24] MEDS: EZETIMIBE 10 MG TABLET PO SCH (09:32)
[2018-03-24] MEDS: METHOCARBAMOL 750 MG TABLET PO SCH ×2 (09:32→17:17)
[2018-03-24] MEDS: MULTIVIT-STRESS FORMULA/ZINC TABLET PO SCH (09:32)
[2018-03-24] MEDS: AMLODIPINE BESYLATE 5 MG TABLET PO SCH (09:32)
--- NOTE | 2018-03-24 17:03 | PDOC PROGRESS REPORT ---
Subjective Progress Note for:: 03/24/18 Subjective:: Patient seen resting in bed comfortably. No new complaint. Reason For Visit: OSTEOMYELITIS FOOT Physical Exam Vital Signs: Temp Pulse Resp BP Pulse Ox 97.8 F 68 17 117/72 94 03/24/18 15:39 03/24/18 15:39 03/24/18 15:39 03/24/18 12:24 03/24/18 15:39 Intake & Output 03/23/18 03/24/18 03/25/18 06:59 06:59 06:59 Intake Total 1486 1518 100 Balance 1486 1518 100 Weight 167.1 kg General appearance: PRESENT: no acute distress Mouth exam: PRESENT: moist Neck exam: ABSENT: carotid bruit, JVD, lymphadenopathy, thyromegaly Respiratory exam: PRESENT: clear to auscultation roxanna. ABSENT: rales, rhonchi, wheezes Cardiovascular exam: PRESENT: RRR. ABSENT: diastolic murmur, rubs, systolic murmur GI/Abdominal exam: PRESENT: normal bowel sounds, soft. ABSENT: distended, guarding, mass, organolmegaly, rebound, tenderness Neurological exam: PRESENT: alert Results Laboratory Results: 03/21/18 09:28 03/21/18 09:28 03/15/18 03/16/18 03/16/18 22:42 04:45 04:45 Troponin I < 0.012 0.017 NT-Pro-B Natriuret Pep 119 Impressions: Foot X-Ray 03/21/18 00:00 IMPRESSION: 1 Since the prior examination dated 03/15/2018, the margins of the distal end of the fifth metatarsal bone appear slightly more irregular and lucent in appearance, raising the question of infection. 2 Soft tissue injury and swelling are again identified at the fifth metatarsal site. Soft tissue swelling of the right foot. Assessment & Plan - Diagnosis (1) Acute on chronic osteomyelitis Is this a current diagnosis for this admission?: Yes Plan: Involving right fifth metatarsal. Status post wound debridement and incision and drainage. Continue Zosyn (2) Diabetic foot infection Is this a current diagnosis for this admission?: Yes Plan: Involving the left foot. Continue local wound care and antibiotics. (3) Type 2 diabetes mellitus Is this a current diagnosis for this admission?: Yes Plan: Continue current regimen (4) Morbid obesity Is this a current diagnosis for this admission?: Yes Plan: Lifestyle modification advised (5) COPD (chronic obstructive pulmonary disease) Qualifiers: Emphysema type: unspecified Is this a current diagnosis for this admission?: Yes Plan: 2 new as needed bronchodilators. (6) Hypertension Qualifiers: Hypertension type: essential hypertension Qualified Code(s): I10 - Essential (primary) hypertension Is this a current diagnosis for this admission?: Yes Plan: Continue home medications (7) Hyperlipidemia Qualifiers: Hyperlipidemia type: unspecified Qualified Code(s): E78.5 - Hyperlipidemia , unspecified Is this a current diagnosis for this admission?: Yes Plan: Continue home medications
[2018-03-24] MEDS: GABAPENTIN 100 MG CAPSULE PO SCH (22:12)
[2018-03-24] MEDS: FERROUS SULFATE 325 MG TABLET PO SCH (22:12)
[2018-03-24] MEDS: INSULIN GLARGINE,HUM.REC.ANLOG 1,000 UNIT/10 ML UNIT SUBCUT SCH (23:35)
[2018-03-25] MEDS: PIPERACILLIN SODIUM/TAZOBACTAM 4.5 GM in NORMAL SALINE 100 ML IV SCH ×2 (03:20→09:47)
[2018-03-25] MEDS: METHADONE HCL 10 MG TABLET PO SCH ×2 (06:34→20:20)
[2018-03-25] MEDS: METFORMIN HCL 850 MG TABLET PO SCH ×3 (07:13→17:29)
[2018-03-25] MEDS: FUROSEMIDE 20 MG TABLET PO SCH (07:13)
[2018-03-25] MEDS: INSULIN REG, HUMAN 100 UNIT/ML 3 ML VIAL (PYX) SUBCUT SCH ×3 (07:13→17:30)
[2018-03-25] MEDS: METOPROLOL TARTRATE 100 MG TABLET PO SCH ×2 (09:48→21:57)
[2018-03-25] MEDS: EZETIMIBE 10 MG TABLET PO SCH (09:48)
[2018-03-25] MEDS: FOLIC ACID 1 MG TABLET PO SCH (09:48)
[2018-03-25] MEDS: ASCORBIC ACID 500 MG TABLET PO SCH (09:48)
[2018-03-25] MEDS: TIOTROPIUM BROMIDE DPI 5 CAP/KIT (18 MCG/CAP) IH SCH (09:48)
[2018-03-25] MEDS: LANSOPRAZOLE 15 MG TAB.RAP.DR PO SCH ×2 (09:48→17:29)
[2018-03-25] MEDS: ASPIRIN 81 MG TABLET, CHEWABLE PO SCH (09:49)
[2018-03-25] MEDS: CHOLECALCIFEROL (D3) 400 UNIT TABLET PO SCH ×2 (09:49→17:30)
[2018-03-25] MEDS: METHOCARBAMOL 750 MG TABLET PO SCH ×2 (09:49→17:29)
[2018-03-25] MEDS: APIXABAN 5 MG TABLET PO SCH ×2 (09:49→21:56)
[2018-03-25] MEDS: MAGNESIUM OXIDE 400 MG TABLET PO SCH (09:49)
[2018-03-25] MEDS: AMLODIPINE BESYLATE 5 MG TABLET PO SCH (09:49)
[2018-03-25] MEDS: MULTIVIT-STRESS FORMULA/ZINC TABLET PO SCH (09:58)
[2018-03-25] MEDS: FLUTICASONE NASAL SPRAY 50 MCG/SPRY 120 SPRAY/16 GM NAREB SCH ×2 (10:04→21:57)
--- NOTE | 2018-03-25 13:09 | PDOC PROGRESS REPORT ---
Subjective Progress Note for:: 03/25/18 Subjective:: No new complaints. No significant event overnight. Reason For Visit: OSTEOMYELITIS FOOT Physical Exam Vital Signs: Temp Pulse Resp BP Pulse Ox 97.8 F 60 18 150/78 H 100 03/25/18 12:00 03/25/18 12:00 03/25/18 12:00 03/25/18 12:00 03/25/18 12:00 Intake & Output 03/24/18 03/25/18 03/26/18 06:59 06:59 06:59 Intake Total 1518 1286 693 Balance 1518 1286 693 Weight 167.1 kg 167.1 kg General appearance: PRESENT: no acute distress Eye exam: PRESENT: conjunctiva pink Mouth exam: PRESENT: moist Neck exam: ABSENT: carotid bruit, JVD, lymphadenopathy, thyromegaly Respiratory exam: PRESENT: clear to auscultation roxanna. ABSENT: rales, rhonchi, wheezes Cardiovascular exam: PRESENT: RRR. ABSENT: diastolic murmur, rubs, systolic murmur GI/Abdominal exam: PRESENT: normal bowel sounds, soft. ABSENT: distended, guarding, mass, organolmegaly, rebound, tenderness Neurological exam: PRESENT: alert, awake, oriented to time, oriented to situation Results Laboratory Results: 03/21/18 09:28 03/21/18 09:28 03/15/18 03/16/18 03/16/18 22:42 04:45 04:45 Troponin I < 0.012 0.017 NT-Pro-B Natriuret Pep 119 Impressions: Foot X-Ray 03/21/18 00:00 IMPRESSION: 1 Since the prior examination dated 03/15/2018, the margins of the distal end of the fifth metatarsal bone appear slightly more irregular and lucent in appearance, raising the question of infection. 2 Soft tissue injury and swelling are again identified at the fifth metatarsal site. Soft tissue swelling of the right foot. Assessment & Plan - Diagnosis (1) Acute on chronic osteomyelitis Is this a current diagnosis for this admission?: Yes Plan: Involving right fifth metatarsal. Status post wound debridement and incision and drainage. Continue Zosyn (2) Diabetic foot infection Is this a current diagnosis for this admission?: Yes Plan: Involving the left foot. Continue local wound care and antibiotics. (3) Type 2 diabetes mellitus Is this a current diagnosis for this admission?: Yes Plan: Continue current regimen (4) Morbid obesity Is this a current diagnosis for this admission?: Yes Plan: Lifestyle modification advised (5) COPD (chronic obstructive pulmonary disease) Qualifiers: Emphysema type: unspecified Is this a current diagnosis for this admission?: Yes Plan: 2 new as needed bronchodilators. (6) Hypertension Qualifiers: Hypertension type: essential hypertension Qualified Code(s): I10 - Essential (primary) hypertension Is this a current diagnosis for this admission?: Yes Plan: Continue home medications (7) Hyperlipidemia Qualifiers: Hyperlipidemia type: unspecified Qualified Code(s): E78.5 - Hyperlipidemia , unspecified Is this a current diagnosis for this admission?: Yes Plan: Continue home medications
[2018-03-25] MEDS: OXYCODONE HCL IR 5 MG TABLET PO PRN (20:24)
[2018-03-25] MEDS: GABAPENTIN 100 MG CAPSULE PO SCH (21:56)
[2018-03-25] MEDS: FERROUS SULFATE 325 MG TABLET PO SCH (21:56)
[2018-03-25] MEDS: INSULIN GLARGINE,HUM.REC.ANLOG 1,000 UNIT/10 ML UNIT SUBCUT SCH (21:57)
[2018-03-26] MEDS: METFORMIN HCL 850 MG TABLET PO SCH ×3 (07:53→16:31)
[2018-03-26] MEDS: FUROSEMIDE 20 MG TABLET PO SCH (07:53)
[2018-03-26] MEDS: METHADONE HCL 10 MG TABLET PO SCH ×2 (07:53→22:12)
[2018-03-26] MEDS: INSULIN REG, HUMAN 100 UNIT/ML 3 ML VIAL (PYX) SUBCUT SCH ×3 (07:55→16:31)
[2018-03-26] MEDS: PIPERACILLIN SODIUM/TAZOBACTAM 4.5 GM in NORMAL SALINE 100 ML IV SCH ×3 (09:21→22:20)
[2018-03-26] MEDS: ASPIRIN 81 MG TABLET, CHEWABLE PO SCH (09:22)
[2018-03-26] MEDS: EZETIMIBE 10 MG TABLET PO SCH (09:22)
[2018-03-26] MEDS: MAGNESIUM OXIDE 400 MG TABLET PO SCH (09:22)
[2018-03-26] MEDS: FOLIC ACID 1 MG TABLET PO SCH (09:22)
[2018-03-26] MEDS: METOPROLOL TARTRATE 100 MG TABLET PO SCH ×2 (09:22→22:19)
[2018-03-26] MEDS: AMLODIPINE BESYLATE 5 MG TABLET PO SCH (09:22)
[2018-03-26] MEDS: APIXABAN 5 MG TABLET PO SCH ×2 (09:22→22:23)
[2018-03-26] MEDS: ASCORBIC ACID 500 MG TABLET PO SCH (09:24)
[2018-03-26] MEDS: CHOLECALCIFEROL (D3) 400 UNIT TABLET PO SCH ×2 (09:24→17:57)
[2018-03-26] MEDS: LANSOPRAZOLE 15 MG TAB.RAP.DR PO SCH ×2 (09:24→17:57)
[2018-03-26] MEDS: METHOCARBAMOL 750 MG TABLET PO SCH ×2 (09:24→17:57)
[2018-03-26] MEDS: TIOTROPIUM BROMIDE DPI 5 CAP/KIT (18 MCG/CAP) IH SCH (09:24)
[2018-03-26] MEDS: FLUTICASONE NASAL SPRAY 50 MCG/SPRY 120 SPRAY/16 GM NAREB SCH ×2 (09:25→22:20)
[2018-03-26] MEDS: MULTIVIT-STRESS FORMULA/ZINC TABLET PO SCH (11:18)
[2018-03-26] MEDS: INSULIN REG, HUMAN 100 UNIT/ML 3 ML VIAL (PYX) SUBCUT PRN (11:20)
--- NOTE | 2018-03-26 15:55 | PDOC PROGRESS REPORT ---
Subjective Progress Note for:: 03/26/18 Subjective:: No new complaint Reason For Visit: OSTEOMYELITIS FOOT Physical Exam Vital Signs: Temp Pulse Resp BP Pulse Ox 97.9 F 77 18 160/76 H 96 03/26/18 12:00 03/26/18 12:00 03/26/18 12:00 03/26/18 12:00 03/26/18 12:00 Intake & Output 03/25/18 03/26/18 03/27/18 06:59 06:59 06:59 Intake Total 1286 3056 100 Balance 1286 3056 100 Weight 167.1 kg General appearance: PRESENT: no acute distress Mouth exam: PRESENT: moist Neck exam: ABSENT: carotid bruit, JVD, lymphadenopathy, thyromegaly Respiratory exam: PRESENT: clear to auscultation roxanna. ABSENT: rales, rhonchi, wheezes Cardiovascular exam: PRESENT: RRR. ABSENT: diastolic murmur, rubs, systolic murmur Neurological exam: PRESENT: alert, awake, oriented to time, oriented to situation Results Laboratory Results: 03/21/18 09:28 03/21/18 09:28 03/15/18 03/16/18 03/16/18 22:42 04:45 04:45 Troponin I < 0.012 0.017 NT-Pro-B Natriuret Pep 119 Impressions: Foot X-Ray 03/21/18 00:00 IMPRESSION: 1 Since the prior examination dated 03/15/2018, the margins of the distal end of the fifth metatarsal bone appear slightly more irregular and lucent in appearance, raising the question of infection. 2 Soft tissue injury and swelling are again identified at the fifth metatarsal site. Soft tissue swelling of the right foot. Assessment & Plan - Diagnosis (1) Acute on chronic osteomyelitis Is this a current diagnosis for this admission?: Yes Plan: Involving right fifth metatarsal. Status post wound debridement and incision and drainage. Continue Zosyn (2) Diabetic foot infection Is this a current diagnosis for this admission?: Yes Plan: Involving the left foot. Continue local wound care and antibiotics. (3) Type 2 diabetes mellitus Is this a current diagnosis for this admission?: Yes Plan: Continue current regimen (4) Morbid obesity Is this a current diagnosis for this admission?: Yes Plan: Lifestyle modification advised (5) COPD (chronic obstructive pulmonary disease) Qualifiers: Emphysema type: unspecified Is this a current diagnosis for this admission?: Yes Plan: 2 new as needed bronchodilators. (6) Hypertension Qualifiers: Hypertension type: essential hypertension Qualified Code(s): I10 - Essential (primary) hypertension Is this a current diagnosis for this admission?: Yes Plan: Continue home medications (7) Hyperlipidemia Qualifiers: Hyperlipidemia type: unspecified Qualified Code(s): E78.5 - Hyperlipidemia , unspecified Is this a current diagnosis for this admission?: Yes
[2018-03-26] MEDS: INSULIN GLARGINE,HUM.REC.ANLOG 1,000 UNIT/10 ML UNIT SUBCUT SCH (22:18)
[2018-03-26] MEDS: FERROUS SULFATE 325 MG TABLET PO SCH (22:19)
[2018-03-26] MEDS: OXYCODONE HCL IR 5 MG TABLET PO PRN (22:19)
[2018-03-26] MEDS: GABAPENTIN 100 MG CAPSULE PO SCH (22:19)
[2018-03-27] MEDS: PIPERACILLIN SODIUM/TAZOBACTAM 4.5 GM in NORMAL SALINE 100 ML IV SCH ×4 (05:13→22:22)
[2018-03-27] MEDS: METHADONE HCL 10 MG TABLET PO SCH ×2 (07:49→22:22)
[2018-03-27] MEDS: METFORMIN HCL 850 MG TABLET PO SCH ×3 (07:52→17:26)
[2018-03-27] MEDS: FUROSEMIDE 20 MG TABLET PO SCH (07:53)
[2018-03-27] MEDS: INSULIN REG, HUMAN 100 UNIT/ML 3 ML VIAL (PYX) SUBCUT SCH ×3 (07:53→17:27)
[2018-03-27] MEDS: CHOLECALCIFEROL (D3) 400 UNIT TABLET PO SCH ×2 (11:21→17:32)
[2018-03-27] MEDS: MULTIVIT-STRESS FORMULA/ZINC TABLET PO SCH (11:21)
[2018-03-27] MEDS: EZETIMIBE 10 MG TABLET PO SCH (11:21)
[2018-03-27] MEDS: METOPROLOL TARTRATE 100 MG TABLET PO SCH ×2 (11:21→22:23)
[2018-03-27] MEDS: AMLODIPINE BESYLATE 5 MG TABLET PO SCH (11:22)
[2018-03-27] MEDS: MAGNESIUM OXIDE 400 MG TABLET PO SCH (11:22)
[2018-03-27] MEDS: ASCORBIC ACID 500 MG TABLET PO SCH (11:22)
[2018-03-27] MEDS: METHOCARBAMOL 750 MG TABLET PO SCH ×2 (11:22→17:26)
[2018-03-27] MEDS: FOLIC ACID 1 MG TABLET PO SCH (11:23)
[2018-03-27] MEDS: LANSOPRAZOLE 15 MG TAB.RAP.DR PO SCH ×2 (11:23→17:26)
[2018-03-27] MEDS: ASPIRIN 81 MG TABLET, CHEWABLE PO SCH (11:23)
[2018-03-27] MEDS: FLUTICASONE NASAL SPRAY 50 MCG/SPRY 120 SPRAY/16 GM NAREB SCH ×2 (11:23→22:24)
[2018-03-27] MEDS: APIXABAN 5 MG TABLET PO SCH ×2 (11:23→22:23)
[2018-03-27] MEDS: INSULIN REG, HUMAN 100 UNIT/ML 3 ML VIAL (PYX) SUBCUT PRN ×2 (11:26→17:27)
--- NOTE | 2018-03-27 14:50 | PDOC PROGRESS REPORT ---
Subjective Progress Note for:: 03/27/18 Subjective:: No new complaints. Patient is being treated for acute on chronic osteomyelitis with Zosyn. His wound culture grew Pseudomonas aeruginosa. Reason For Visit: OSTEOMYELITIS FOOT Physical Exam Vital Signs: Temp Pulse Resp BP Pulse Ox 98.9 F 77 18 134/73 H 97 03/27/18 12:18 03/27/18 12:18 03/27/18 12:18 03/27/18 12:18 03/27/18 12:18 Intake & Output 03/26/18 03/27/18 03/28/18 06:59 06:59 06:59 Intake Total 3056 1570 948 Balance 3056 1570 948 Weight 167.1 kg General appearance: PRESENT: no acute distress, well-developed, well-nourished Head exam: PRESENT: atraumatic, normocephalic Eye exam: PRESENT: conjunctiva pink, EOMI, PERRLA. ABSENT: scleral icterus Ear exam: PRESENT: normal external ear exam Mouth exam: PRESENT: moist, tongue midline Neck exam: ABSENT: carotid bruit, JVD, lymphadenopathy, thyromegaly Respiratory exam: PRESENT: clear to auscultation roxanna. ABSENT: rales, rhonchi, wheezes Cardiovascular exam: PRESENT: RRR. ABSENT: diastolic murmur, rubs, systolic murmur Pulses: PRESENT: normal dorsalis pedis pul Vascular exam: PRESENT: normal capillary refill GI/Abdominal exam: PRESENT: normal bowel sounds, soft. ABSENT: distended, guarding, mass, organolmegaly, rebound, tenderness Rectal exam: PRESENT: deferred Extremities exam: PRESENT: full ROM. ABSENT: calf tenderness, clubbing, pedal edema Neurological exam: PRESENT: alert, awake, oriented to person, oriented to place , oriented to time, oriented to situation, CN II-XII grossly intact. ABSENT: motor sensory deficit Psychiatric exam: PRESENT: appropriate affect, normal mood. ABSENT: homicidal ideation, suicidal ideation Skin exam: PRESENT: dry, intact, warm. ABSENT: cyanosis, rash Results Laboratory Results: 03/21/18 09:28 03/21/18 09:28 03/15/18 03/16/18 03/16/18 22:42 04:45 04:45 Troponin I < 0.012 0.017 NT-Pro-B Natriuret Pep 119 Impressions: Foot X-Ray 03/21/18 00:00 IMPRESSION: 1 Since the prior examination dated 03/15/2018, the margins of the distal end of the fifth metatarsal bone appear slightly more irregular and lucent in appearance, raising the question of infection. 2 Soft tissue injury and swelling are again identified at the fifth metatarsal site. Soft tissue swelling of the right foot. Assessment & Plan - Diagnosis (1) Acute on chronic osteomyelitis Is this a current diagnosis for this admission?: Yes Plan: Involving right fifth metatarsal. Status post wound debridement and incision and drainage. Continue Zosyn (2) Diabetic foot infection Is this a current diagnosis for this admission?: Yes Plan: Involving the left foot. Continue local wound care and antibiotics. (3) Type 2 diabetes mellitus Is this a current diagnosis for this admission?: Yes Plan: Continue current regimen (4) Morbid obesity Is this a current diagnosis for this admission?: Yes Plan: Lifestyle modification advised (5) COPD (chronic obstructive pulmonary disease) Qualifiers: Emphysema type: unspecified Is this a current diagnosis for this admission?: Yes Plan: 2 new as needed bronchodilators. (6) Hypertension Qualifiers: Hypertension type: essential hypertension Qualified Code(s): I10 - Essential (primary) hypertension Is this a current diagnosis for this admission?: Yes Plan: Continue home medications (7) Hyperlipidemia Qualifiers: Hyperlipidemia type: unspecified Qualified Code(s): E78.5 - Hyperlipidemia , unspecified Is this a current diagnosis for this admission?: Yes Plan: Continue home medications
[2018-03-27] MEDS: TIOTROPIUM BROMIDE DPI 5 CAP/KIT (18 MCG/CAP) IH SCH (15:13)
[2018-03-27] MEDS: GABAPENTIN 100 MG CAPSULE PO SCH (22:23)
[2018-03-27] MEDS: INSULIN GLARGINE,HUM.REC.ANLOG 1,000 UNIT/10 ML UNIT SUBCUT SCH (22:23)
[2018-03-27] MEDS: FERROUS SULFATE 325 MG TABLET PO SCH (22:23)
[2018-03-28] MEDS: PIPERACILLIN SODIUM/TAZOBACTAM 4.5 GM in NORMAL SALINE 100 ML IV SCH ×4 (03:02→21:50)
[2018-03-28] MEDS: INSULIN REG, HUMAN 100 UNIT/ML 3 ML VIAL (PYX) SUBCUT SCH ×3 (07:53→16:38)
[2018-03-28] MEDS: METFORMIN HCL 850 MG TABLET PO SCH ×3 (07:54→15:47)
[2018-03-28] MEDS: FUROSEMIDE 20 MG TABLET PO SCH (07:54)
[2018-03-28] MEDS: APIXABAN 5 MG TABLET PO SCH ×2 (10:04→21:50)
[2018-03-28] MEDS: TIOTROPIUM BROMIDE DPI 5 CAP/KIT (18 MCG/CAP) IH SCH (10:04)
[2018-03-28] MEDS: ASCORBIC ACID 500 MG TABLET PO SCH (10:05)
[2018-03-28] MEDS: FOLIC ACID 1 MG TABLET PO SCH (10:06)
[2018-03-28] MEDS: LANSOPRAZOLE 15 MG TAB.RAP.DR PO SCH ×2 (10:06→17:21)
[2018-03-28] MEDS: AMLODIPINE BESYLATE 5 MG TABLET PO SCH (10:06)
[2018-03-28] MEDS: EZETIMIBE 10 MG TABLET PO SCH (10:06)
[2018-03-28] MEDS: MULTIVIT-STRESS FORMULA/ZINC TABLET PO SCH (10:07)
[2018-03-28] MEDS: CHOLECALCIFEROL (D3) 400 UNIT TABLET PO SCH ×2 (10:07→17:21)
[2018-03-28] MEDS: ASPIRIN 81 MG TABLET, CHEWABLE PO SCH (10:07)
[2018-03-28] MEDS: METOPROLOL TARTRATE 100 MG TABLET PO SCH ×2 (10:07→21:51)
[2018-03-28] MEDS: METHOCARBAMOL 750 MG TABLET PO SCH ×2 (10:07→17:21)
[2018-03-28] MEDS: MAGNESIUM OXIDE 400 MG TABLET PO SCH (10:08)
[2018-03-28] MEDS: FLUTICASONE NASAL SPRAY 50 MCG/SPRY 120 SPRAY/16 GM NAREB SCH ×2 (10:09→21:50)
[2018-03-28] MEDS: METHADONE HCL 10 MG TABLET PO SCH (14:41)
--- NOTE | 2018-03-28 14:57 | PDOC PROGRESS REPORT ---
Subjective Subjective:: This is 67 years old male patient admitted for acute on chronic osteomyelitis involving the right fifth metatarsal bone and diabetic foot ulcer of the left foot. His wound culture grew Pseudomonas aeruginosa which is pansensitive. Patient has been on Zosyn. Patient has been awaiting placement to [facility] [place] for completion of 6 weeks of antibiotics. Reason For Visit: OSTEOMYELITIS FOOT Physical Exam Vital Signs: Temp Pulse Resp BP Pulse Ox 97.4 F 70 16 146/80 H 95 03/28/18 12:35 03/28/18 12:35 03/28/18 12:35 03/28/18 12:35 03/28/18 12:35 Intake & Output 03/27/18 03/28/18 03/29/18 06:59 06:59 06:59 Intake Total 1570 2589 100 Balance 1570 2589 100 Weight 167.1 kg 166.9 kg General appearance: PRESENT: no acute distress, well-developed, well-nourished Head exam: PRESENT: atraumatic, normocephalic Eye exam: PRESENT: conjunctiva pink, EOMI, PERRLA. ABSENT: scleral icterus Ear exam: PRESENT: normal external ear exam Mouth exam: PRESENT: moist, tongue midline Neck exam: ABSENT: carotid bruit, JVD, lymphadenopathy, thyromegaly Respiratory exam: PRESENT: clear to auscultation roxanna. ABSENT: rales, rhonchi, wheezes Cardiovascular exam: PRESENT: RRR. ABSENT: diastolic murmur, rubs, systolic murmur Pulses: PRESENT: normal dorsalis pedis pul Vascular exam: PRESENT: normal capillary refill GI/Abdominal exam: PRESENT: normal bowel sounds, soft. ABSENT: distended, guarding, mass, organolmegaly, rebound, tenderness Rectal exam: PRESENT: deferred Extremities exam: PRESENT: full ROM, other - Wound dressed.. ABSENT: calf tenderness, clubbing, pedal edema Neurological exam: PRESENT: alert, awake, oriented to person, oriented to place , oriented to time, oriented to situation, CN II-XII grossly intact. ABSENT: motor sensory deficit Psychiatric exam: PRESENT: appropriate affect, normal mood. ABSENT: homicidal ideation, suicidal ideation Skin exam: PRESENT: dry, intact, warm. ABSENT: cyanosis, rash Results Laboratory Results: 03/21/18 09:28 03/21/18 09:28 03/15/18 03/16/18 03/16/18 22:42 04:45 04:45 Troponin I < 0.012 0.017 NT-Pro-B Natriuret Pep 119 Impressions: Foot X-Ray 03/21/18 00:00 IMPRESSION: 1 Since the prior examination dated 03/15/2018, the margins of the distal end of the fifth metatarsal bone appear slightly more irregular and lucent in appearance, raising the question of infection. 2 Soft tissue injury and swelling are again identified at the fifth metatarsal site. Soft tissue swelling of the right foot. Assessment & Plan - Diagnosis (1) Acute on chronic osteomyelitis Is this a current diagnosis for this admission?: Yes Plan: Involving right fifth metatarsal. Status post wound debridement and incision and drainage. Continue Zosyn (2) Diabetic foot infection Is this a current diagnosis for this admission?: Yes Plan: Involving the left foot. Continue local wound care and antibiotics. (3) Type 2 diabetes mellitus Is this a current diagnosis for this admission?: Yes Plan: Continue current regimen (4) Morbid obesity Is this a current diagnosis for this admission?: Yes Plan: Lifestyle modification advised (5) COPD (chronic obstructive pulmonary disease) Qualifiers: Emphysema type: unspecified Is this a current diagnosis for this admission?: Yes Plan: 2 new as needed bronchodilators. (6) Hypertension Qualifiers: Hypertension type: essential hypertension Qualified Code(s): I10 - Essential (primary) hypertension Is this a current diagnosis for this admission?: Yes Plan: Continue home medications (7) Hyperlipidemia Qualifiers: Hyperlipidemia type: unspecified Qualified Code(s): E78.5 - Hyperlipidemia , unspecified Is this a current diagnosis for this admission?: Yes Plan: Continue home medications
[2018-03-28] MEDS: INSULIN GLARGINE,HUM.REC.ANLOG 1,000 UNIT/10 ML UNIT SUBCUT SCH (21:50)
[2018-03-28] MEDS: FERROUS SULFATE 325 MG TABLET PO SCH (21:50)
[2018-03-28] MEDS: GABAPENTIN 100 MG CAPSULE PO SCH (21:51)
[2018-03-29] MEDS: OXYCODONE HCL IR 5 MG TABLET PO PRN (01:48)
[2018-03-29] MEDS: PIPERACILLIN SODIUM/TAZOBACTAM 4.5 GM in NORMAL SALINE 100 ML IV SCH ×4 (02:16→21:53)
[2018-03-29] MEDS: INSULIN REG, HUMAN 100 UNIT/ML 3 ML VIAL (PYX) SUBCUT SCH ×3 (07:14→16:20)
[2018-03-29] MEDS: METFORMIN HCL 850 MG TABLET PO SCH ×3 (07:14→16:11)
[2018-03-29] MEDS: FUROSEMIDE 20 MG TABLET PO SCH (07:14)
[2018-03-29] MEDS: FOLIC ACID 1 MG TABLET PO SCH (09:42)
[2018-03-29] MEDS: APIXABAN 5 MG TABLET PO SCH ×2 (09:42→21:55)
[2018-03-29] MEDS: TIOTROPIUM BROMIDE DPI 5 CAP/KIT (18 MCG/CAP) IH SCH (09:42)
[2018-03-29] MEDS: EZETIMIBE 10 MG TABLET PO SCH (09:42)
[2018-03-29] MEDS: AMLODIPINE BESYLATE 5 MG TABLET PO SCH (09:43)
[2018-03-29] MEDS: ASPIRIN 81 MG TABLET, CHEWABLE PO SCH (09:43)
[2018-03-29] MEDS: METOPROLOL TARTRATE 100 MG TABLET PO SCH ×2 (09:43→22:02)
[2018-03-29] MEDS: ASCORBIC ACID 500 MG TABLET PO SCH (09:43)
[2018-03-29] MEDS: CHOLECALCIFEROL (D3) 400 UNIT TABLET PO SCH ×2 (09:43→17:58)
[2018-03-29] MEDS: MAGNESIUM OXIDE 400 MG TABLET PO SCH (09:43)
[2018-03-29] MEDS: MULTIVIT-STRESS FORMULA/ZINC TABLET PO SCH (09:43)
[2018-03-29] MEDS: METHOCARBAMOL 750 MG TABLET PO SCH ×2 (09:44→17:58)
[2018-03-29] MEDS: FLUTICASONE NASAL SPRAY 50 MCG/SPRY 120 SPRAY/16 GM NAREB SCH ×2 (09:44→22:07)
[2018-03-29] MEDS: LANSOPRAZOLE 15 MG TAB.RAP.DR PO SCH ×2 (09:44→17:58)
[2018-03-29] MEDS: METHADONE HCL 10 MG TABLET PO SCH ×2 (12:12→18:56)
[2018-03-29] MEDS ORDERED: METHADONE HCL 10 MG TABLET PO SCH (13:30)
--- NOTE | 2018-03-29 18:56 | PDOC PROGRESS REPORT ---
Subjective Progress Note for:: 03/29/18 Subjective:: The patient is resting comfortably. No new complaints. Reason For Visit: OSTEOMYELITIS FOOT Physical Exam Vital Signs: Temp Pulse Resp BP Pulse Ox 97.4 F 73 18 148/75 H 94 03/29/18 16:00 03/29/18 16:00 03/29/18 16:00 03/29/18 16:00 03/29/18 16:00 Intake & Output 03/28/18 03/29/18 03/30/18 06:59 06:59 06:59 Intake Total 2589 1896 190 Balance 2589 1896 190 Weight 166.9 kg 166.9 kg General appearance: PRESENT: no acute distress, cooperative, morbidly obese Respiratory exam: PRESENT: other - No increased work of breathing.. ABSENT: rales, rhonchi, wheezes Cardiovascular exam: PRESENT: RRR. ABSENT: gallop, rubs, systolic murmur GI/Abdominal exam: PRESENT: soft, other - Obese. Bowel sounds are distant. I am unable to evaluate the abdomen for hernias, masses, or organomegaly.. ABSENT: tenderness Rectal exam: PRESENT: deferred Extremities exam: PRESENT: other - Feet bilaterally are bandaged. Neurological exam: PRESENT: alert, awake, oriented to person, oriented to time, oriented to situation, reflexes normal, CN II-XII grossly intact. ABSENT: motor sensory deficit Psychiatric exam: PRESENT: unusual affect Skin exam: PRESENT: dry, intact, warm Results Laboratory Results: 03/21/18 09:28 03/21/18 09:28 03/15/18 03/16/18 03/16/18 22:42 04:45 04:45 Troponin I < 0.012 0.017 NT-Pro-B Natriuret Pep 119 Impressions: Foot X-Ray 03/21/18 00:00 IMPRESSION: 1 Since the prior examination dated 03/15/2018, the margins of the distal end of the fifth metatarsal bone appear slightly more irregular and lucent in appearance, raising the question of infection. 2 Soft tissue injury and swelling are again identified at the fifth metatarsal site. Soft tissue swelling of the right foot. Assessment & Plan - Diagnosis (1) Diabetic foot infection Is this a current diagnosis for this admission?: Yes Plan: manager intermediate IV antibiotics. Awaiting rehab placement. (2) Hyperkalemia Is this a current diagnosis for this admission?: Yes Plan: Will check chemistry. (3) Osteomyelitis Qualifiers: Osteomyelitis type: chronic, with draining sinus Osteomyelitis location: foot Laterality: right Qualified Code(s): M86.471 - Chronic osteomyelitis with draining sinus, right ankle and foot Is this a current diagnosis for this admission?: Yes Plan: Control sugars, consult podiatry. IV Zosyn. I have discussed the patient with Dr. Cruz from ID at [facility]. She agrees with IV zosyn, but suggests an increase in the dosage to 4.5 g q6 due to the patient's size. The patient will require ocean transportation intermediary antibiotics. (4) Pacemaker Is this a current diagnosis for this admission?: Yes (5) COPD (chronic obstructive pulmonary disease) Qualifiers: COPD type: unspecified COPD Qualified Code(s): J44.9 - Chronic obstructive pulmonary disease, unspecified Is this a current diagnosis for this admission?: Yes Plan: Nebulizer treatments prn. Stable. (6) Morbid obesity with BMI of 40.0-44.9, adult Is this a current diagnosis for this admission?: Yes Plan: Complicates all cares. I will increase the dose of zosyn to 4.5 gm q6 as per Dr. Cruz's suggestion. The patient has refused anything but a regular diet. (7) Abscess of foot Is this a current diagnosis for this admission?: Yes (8) Benzodiazepine dependence, continuous Is this a current diagnosis for this admission?: Yes Plan: continue home medication (9) Chronic venous stasis dermatitis Is this a current diagnosis for this admission?: Yes Plan: Diurese as possible to improve antibiotic penetrance. (10) Diabetes mellitus Qualifiers: Diabetes mellitus type: type 2 Diabetes mellitus usp insulin use: with ocean transportation intermediary use Diabetes mellitus complication status: with circulatory complication Diabetes mellitus complication detail: with peripheral angiopathy without gangrene Qualified Code(s): E11.51 - Type 2 diabetes mellitus with diabetic peripheral angiopathy without gangrene; Z79.4 - manager intermediate (current) use of insulin; Z79.4 - [facility] (current) use of insulin; Z79.4 - [facility] (current) use of insulin; Z79.4 - manager intermediate (current) use of insulin Is this a current diagnosis for this admission?: Yes (11) Diabetic foot ulcer Qualifiers: Diabetes mellitus type: type 2 Laterality: left Is this a current diagnosis for this admission?: Yes (12) GERD (gastroesophageal reflux disease) Qualifiers: Esophagitis presence: without esophagitis Qualified Code(s): K21.9 - Gastro -esophageal reflux disease without esophagitis Is this a current diagnosis for this admission?: Yes (13) Hyperlipidemia Qualifiers: Hyperlipidemia type: mixed hyperlipidemia Qualified Code(s): E78.2 - Mixed hyperlipidemia Is this a current diagnosis for this admission?: Yes (14) Hypertension Qualifiers: Hypertension type: essential hypertension Qualified Code(s): I10 - Essential (primary) hypertension Is this a current diagnosis for this admission?: Yes (15) ANDIE on CPAP Is this a current diagnosis for this admission?: Yes (16) Opiate dependence Is this a current diagnosis for this admission?: Yes - Time Time Spent with patient: 25-34 minutes Anticipated discharge: SNF Within: when bed available
[2018-03-29] MEDS ORDERED: TESTOSTERONE CYPIONATE 200 MG/ML IM ONE (20:00)
[2018-03-29] MEDS: INSULIN GLARGINE,HUM.REC.ANLOG 1,000 UNIT/10 ML UNIT SUBCUT SCH (21:58)
[2018-03-29] MEDS: GABAPENTIN 100 MG CAPSULE PO SCH (22:03)
[2018-03-29] MEDS: FERROUS SULFATE 325 MG TABLET PO SCH (22:06)
[2018-03-30] MEDS: PIPERACILLIN SODIUM/TAZOBACTAM 4.5 GM in NORMAL SALINE 100 ML IV SCH ×4 (03:24→21:31)
[2018-03-30] MEDS: METFORMIN HCL 850 MG TABLET PO SCH ×3 (07:33→16:00)
[2018-03-30] MEDS: FUROSEMIDE 20 MG TABLET PO SCH (07:33)
[2018-03-30] MEDS: INSULIN REG, HUMAN 100 UNIT/ML 3 ML VIAL (PYX) SUBCUT SCH ×3 (07:33→16:00)
[2018-03-30] MEDS: METHADONE HCL 10 MG TABLET PO SCH ×2 (07:35→21:23)
[2018-03-30] MEDS: FOLIC ACID 1 MG TABLET PO SCH (09:41)
[2018-03-30] MEDS: CHOLECALCIFEROL (D3) 400 UNIT TABLET PO SCH ×2 (09:41→17:19)
[2018-03-30] MEDS: APIXABAN 5 MG TABLET PO SCH ×2 (09:41→21:33)
[2018-03-30] MEDS: ASPIRIN 81 MG TABLET, CHEWABLE PO SCH (09:41)
[2018-03-30] MEDS: ASCORBIC ACID 500 MG TABLET PO SCH (09:41)
[2018-03-30] MEDS: LANSOPRAZOLE 15 MG TAB.RAP.DR PO SCH ×2 (09:41→17:19)
[2018-03-30] MEDS: MAGNESIUM OXIDE 400 MG TABLET PO SCH (09:41)
[2018-03-30] MEDS: EZETIMIBE 10 MG TABLET PO SCH (09:42)
[2018-03-30] MEDS: AMLODIPINE BESYLATE 5 MG TABLET PO SCH (09:42)
[2018-03-30] MEDS: METOPROLOL TARTRATE 100 MG TABLET PO SCH ×2 (09:42→21:32)
[2018-03-30] MEDS: FLUTICASONE NASAL SPRAY 50 MCG/SPRY 120 SPRAY/16 GM NAREB SCH ×2 (09:42→21:33)
[2018-03-30] MEDS: METHOCARBAMOL 750 MG TABLET PO SCH ×2 (09:42→17:19)
[2018-03-30] MEDS: MULTIVIT-STRESS FORMULA/ZINC TABLET PO SCH (09:42)
[2018-03-30] MEDS: TIOTROPIUM BROMIDE DPI 5 CAP/KIT (18 MCG/CAP) IH SCH (09:48)
--- NOTE | 2018-03-30 18:15 | PDOC PROGRESS REPORT ---
Subjective Progress Note for:: 03/30/18 Subjective:: The patient is resting comfortably. No new complaints. Reason For Visit: OSTEOMYELITIS FOOT Physical Exam Vital Signs: Temp Pulse Resp BP Pulse Ox 97.6 F 76 18 138/70 H 94 03/30/18 16:00 03/30/18 16:00 03/30/18 16:00 03/30/18 16:00 03/30/18 16:00 Intake & Output 03/29/18 03/30/18 03/31/18 06:59 06:59 06:59 Intake Total 1896 1030 1820 Balance 1896 1030 1820 Weight 166.9 kg 166.2 kg General appearance: PRESENT: no acute distress, cooperative Respiratory exam: PRESENT: other - No increased work of breathing. No wheezes, rales, or rhonchi. No tactile fremitus. Cardiovascular exam: PRESENT: RRR. ABSENT: gallop, rubs, systolic murmur Rectal exam: PRESENT: other - Morbidly obese. Bowel sounds are distant. I am unable to evaluate the patient's abdomen for organomegaly, masses, or hernias due to the patient's body habitus. Neurological exam: PRESENT: alert, awake, oriented to person, oriented to place , oriented to time, oriented to situation, CN II-XII grossly intact. ABSENT: motor sensory deficit Psychiatric exam: PRESENT: appropriate affect, normal mood Skin exam: PRESENT: dry, intact, warm Results Laboratory Results: 03/21/18 09:28 03/21/18 09:28 03/15/18 03/16/18 03/16/18 22:42 04:45 04:45 Troponin I < 0.012 0.017 NT-Pro-B Natriuret Pep 119 Impressions: Foot X-Ray 03/21/18 00:00 IMPRESSION: 1 Since the prior examination dated 03/15/2018, the margins of the distal end of the fifth metatarsal bone appear slightly more irregular and lucent in appearance, raising the question of infection. 2 Soft tissue injury and swelling are again identified at the fifth metatarsal site. Soft tissue swelling of the right foot. Assessment & Plan - Diagnosis (1) Diabetic foot infection Is this a current diagnosis for this admission?: Yes Plan: residential IV antibiotics. Awaiting rehab placement. (2) Hyperkalemia Is this a current diagnosis for this admission?: Yes Plan: Will check chemistry. (3) Osteomyelitis Qualifiers: Osteomyelitis type: chronic, with draining sinus Osteomyelitis location: foot Laterality: right Qualified Code(s): M86.471 - Chronic osteomyelitis with draining sinus, right ankle and foot Is this a current diagnosis for this admission?: Yes Plan: Control sugars, consult podiatry. IV Zosyn. I have discussed the patient with Dr. Cruz from ID at [facility]. She agrees with IV zosyn, but suggests an increase in the dosage to 4.5 g q6 due to the patient's size. The patient will require exterminator termite antibiotics. (4) Pacemaker Is this a current diagnosis for this admission?: Yes (5) COPD (chronic obstructive pulmonary disease) Qualifiers: COPD type: unspecified COPD Qualified Code(s): J44.9 - Chronic obstructive pulmonary disease, unspecified Is this a current diagnosis for this admission?: Yes (6) Morbid obesity with BMI of 40.0-44.9, adult Is this a current diagnosis for this admission?: Yes (7) Abscess of foot Is this a current diagnosis for this admission?: Yes (8) Benzodiazepine dependence, continuous Is this a current diagnosis for this admission?: Yes (9) Chronic venous stasis dermatitis Is this a current diagnosis for this admission?: Yes (10) Diabetes mellitus Qualifiers: Diabetes mellitus type: type 2 Diabetes mellitus exterminator termite insulin use: with care home use Diabetes mellitus complication status: with circulatory complication Diabetes mellitus complication detail: with peripheral angiopathy without gangrene Qualified Code(s): E11.51 - Type 2 diabetes mellitus with diabetic peripheral angiopathy without gangrene; Z79.4 - long term care social worker (current) use of insulin; Z79.4 - long term care social worker (current) use of insulin; Z79.4 - residential (current) use of insulin; Z79.4 - long term care social worker (current) use of insulin Is this a current diagnosis for this admission?: Yes (11) Diabetic foot ulcer Qualifiers: Diabetes mellitus type: type 2 Laterality: left Is this a current diagnosis for this admission?: Yes (12) GERD (gastroesophageal reflux disease) Qualifiers: Esophagitis presence: without esophagitis Qualified Code(s): K21.9 - Gastro -esophageal reflux disease without esophagitis Is this a current diagnosis for this admission?: Yes (13) Hyperlipidemia Qualifiers: Hyperlipidemia type: mixed hyperlipidemia Qualified Code(s): E78.2 - Mixed hyperlipidemia Is this a current diagnosis for this admission?: Yes (14) Hypertension Qualifiers: Hypertension type: essential hypertension Qualified Code(s): I10 - Essential (primary) hypertension Is this a current diagnosis for this admission?: Yes (15) ANDIE on CPAP Is this a current diagnosis for this admission?: Yes (16) Opiate dependence Is this a current diagnosis for this admission?: Yes - Time Time Spent with patient: 25-34 minutes Medications reviewed and adjusted accordingly: Yes Anticipated discharge: Acute Rehab
[2018-03-30] MEDS: FERROUS SULFATE 325 MG TABLET PO SCH (21:32)
[2018-03-30] MEDS: GABAPENTIN 100 MG CAPSULE PO SCH (21:32)
[2018-03-30] MEDS: INSULIN GLARGINE,HUM.REC.ANLOG 1,000 UNIT/10 ML UNIT SUBCUT SCH (21:33)
[2018-03-31] MEDS: PIPERACILLIN SODIUM/TAZOBACTAM 4.5 GM in NORMAL SALINE 100 ML IV SCH ×4 (03:28→21:40)
[2018-03-31] MEDS: METHADONE HCL 10 MG TABLET PO SCH (06:31)
[2018-03-31] MEDS: METFORMIN HCL 850 MG TABLET PO SCH ×3 (07:48→16:08)
[2018-03-31] MEDS: FUROSEMIDE 20 MG TABLET PO SCH (07:48)
[2018-03-31] MEDS: INSULIN REG, HUMAN 100 UNIT/ML 3 ML VIAL (PYX) SUBCUT SCH ×3 (07:49→16:07)
[2018-03-31] MEDS: TIOTROPIUM BROMIDE DPI 5 CAP/KIT (18 MCG/CAP) IH SCH (10:27)
[2018-03-31] MEDS: ASCORBIC ACID 500 MG TABLET PO SCH (10:28)
[2018-03-31] MEDS: ASPIRIN 81 MG TABLET, CHEWABLE PO SCH (10:28)
[2018-03-31] MEDS: MULTIVIT-STRESS FORMULA/ZINC TABLET PO SCH (10:28)
[2018-03-31] MEDS: AMLODIPINE BESYLATE 5 MG TABLET PO SCH (10:28)
[2018-03-31] MEDS: EZETIMIBE 10 MG TABLET PO SCH (10:28)
[2018-03-31] MEDS: METHOCARBAMOL 750 MG TABLET PO SCH ×2 (10:28→17:12)
[2018-03-31] MEDS: METOPROLOL TARTRATE 100 MG TABLET PO SCH ×2 (10:28→21:41)
[2018-03-31] MEDS: LANSOPRAZOLE 15 MG TAB.RAP.DR PO SCH ×2 (10:28→17:12)
[2018-03-31] MEDS: MAGNESIUM OXIDE 400 MG TABLET PO SCH (10:28)
[2018-03-31] MEDS: FOLIC ACID 1 MG TABLET PO SCH (10:28)
[2018-03-31] MEDS: CHOLECALCIFEROL (D3) 400 UNIT TABLET PO SCH ×2 (10:29→17:13)
[2018-03-31] MEDS: APIXABAN 5 MG TABLET PO SCH ×2 (10:29→21:40)
[2018-03-31] MEDS: FLUTICASONE NASAL SPRAY 50 MCG/SPRY 120 SPRAY/16 GM NAREB SCH ×2 (10:29→21:40)
--- NOTE | 2018-03-31 17:42 | PDOC PROGRESS REPORT ---
Subjective Progress Note for:: 03/31/18 Subjective:: The patient is resting comfortably. No new complaints. Reason For Visit: OSTEOMYELITIS FOOT Physical Exam Vital Signs: Temp Pulse Resp BP Pulse Ox 97.6 F 74 15 132/78 H 96 03/31/18 16:00 03/31/18 16:00 03/31/18 16:00 03/31/18 16:00 03/31/18 16:00 Intake & Output 03/30/18 03/31/18 04/01/18 06:59 06:59 06:59 Intake Total 1030 2580 602 Balance 1030 2580 602 Weight 166.2 kg 166.3 kg General appearance: PRESENT: no acute distress, morbidly obese Respiratory exam: PRESENT: other - No increased work of breathing.. ABSENT: rales, rhonchi, wheezes Cardiovascular exam: PRESENT: RRR, other - No lateral PMI. No thrills.. ABSENT : gallop, rubs, systolic murmur GI/Abdominal exam: PRESENT: soft, other - The abdomen is morbidly obese.. ABSENT: tenderness Rectal exam: PRESENT: deferred Extremities exam: ABSENT: clubbing, pedal edema, tenderness Neurological exam: PRESENT: alert, awake, oriented to person, oriented to place , oriented to time, oriented to situation, CN II-XII grossly intact. ABSENT: motor sensory deficit Psychiatric exam: PRESENT: appropriate affect, normal mood Skin exam: PRESENT: dry, intact, warm Results Laboratory Results: 03/21/18 09:28 03/21/18 09:28 03/15/18 03/16/18 03/16/18 22:42 04:45 04:45 Troponin I < 0.012 0.017 NT-Pro-B Natriuret Pep 119 Impressions: Foot X-Ray 03/21/18 00:00 IMPRESSION: 1 Since the prior examination dated 03/15/2018, the margins of the distal end of the fifth metatarsal bone appear slightly more irregular and lucent in appearance, raising the question of infection. 2 Soft tissue injury and swelling are again identified at the fifth metatarsal site. Soft tissue swelling of the right foot. Assessment & Plan - Diagnosis (1) Diabetic foot infection Is this a current diagnosis for this admission?: Yes Plan: [facility] IV antibiotics. Awaiting rehab placement. (2) Osteomyelitis Qualifiers: Osteomyelitis type: chronic, with draining sinus Osteomyelitis location: foot Laterality: right Qualified Code(s): M86.471 - Chronic osteomyelitis with draining sinus, right ankle and foot Is this a current diagnosis for this admission?: Yes Plan: Control sugars, consult podiatry. IV Zosyn. I have discussed the patient with Dr. Cruz from ID at [facility]. She agrees with IV zosyn, but suggests an increase in the dosage to 4.5 g q6 due to the patient's size. The patient will require [facility] antibiotics. awaiting rehab placement. (3) Pacemaker Is this a current diagnosis for this admission?: Yes (4) COPD (chronic obstructive pulmonary disease) Qualifiers: COPD type: unspecified COPD Qualified Code(s): J44.9 - Chronic obstructive pulmonary disease, unspecified Is this a current diagnosis for this admission?: Yes (5) Morbid obesity with BMI of 40.0-44.9, adult Is this a current diagnosis for this admission?: Yes (6) Abscess of foot Is this a current diagnosis for this admission?: Yes (7) Benzodiazepine dependence, continuous Is this a current diagnosis for this admission?: Yes (8) Chronic venous stasis dermatitis Is this a current diagnosis for this admission?: Yes (9) Diabetes mellitus Qualifiers: Diabetes mellitus type: type 2 Diabetes mellitus multimedia coordinator insulin use: with multimedia coordinator use Diabetes mellitus complication status: with circulatory complication Diabetes mellitus complication detail: with peripheral angiopathy without gangrene Qualified Code(s): E11.51 - Type 2 diabetes mellitus with diabetic peripheral angiopathy without gangrene; Z79.4 - [facility] (current) use of insulin; Z79.4 - [facility] (current) use of insulin; Z79.4 - boat tester (current) use of insulin; Z79.4 - boat tester (current) use of insulin Is this a current diagnosis for this admission?: Yes (10) Diabetic foot ulcer Qualifiers: Diabetes mellitus type: type 2 Laterality: left Is this a current diagnosis for this admission?: Yes (11) GERD (gastroesophageal reflux disease) Qualifiers: Esophagitis presence: without esophagitis Qualified Code(s): K21.9 - Gastro -esophageal reflux disease without esophagitis Is this a current diagnosis for this admission?: Yes (12) Hyperlipidemia Qualifiers: Hyperlipidemia type: mixed hyperlipidemia Qualified Code(s): E78.2 - Mixed hyperlipidemia Is this a current diagnosis for this admission?: Yes (13) Hypertension Qualifiers: Hypertension type: essential hypertension Qualified Code(s): I10 - Essential (primary) hypertension Is this a current diagnosis for this admission?: Yes (14) ANDIE on CPAP Is this a current diagnosis for this admission?: Yes (15) Opiate dependence Is this a current diagnosis for this admission?: Yes - Time Time Spent with patient: 25-34 minutes Anticipated discharge: SNF
[2018-03-31] MEDS: FERROUS SULFATE 325 MG TABLET PO SCH (21:40)
[2018-03-31] MEDS: GABAPENTIN 100 MG CAPSULE PO SCH (21:41)
[2018-03-31] MEDS: INSULIN GLARGINE,HUM.REC.ANLOG 1,000 UNIT/10 ML UNIT SUBCUT SCH (21:42)
[2018-04-01] MEDS: METHADONE HCL 10 MG TABLET PO SCH ×2 (00:10→11:57)
[2018-04-01] MEDS: PIPERACILLIN SODIUM/TAZOBACTAM 4.5 GM in NORMAL SALINE 100 ML IV SCH ×3 (03:49→15:48)
[2018-04-01] MEDS: INSULIN REG, HUMAN 100 UNIT/ML 3 ML VIAL (PYX) SUBCUT SCH ×3 (07:16→16:53)
[2018-04-01] MEDS: METFORMIN HCL 850 MG TABLET PO SCH ×3 (07:16→16:53)
[2018-04-01] MEDS: TIOTROPIUM BROMIDE DPI 5 CAP/KIT (18 MCG/CAP) IH SCH (10:13)
[2018-04-01] MEDS: FUROSEMIDE 20 MG TABLET PO SCH (10:14)
[2018-04-01] MEDS: MAGNESIUM OXIDE 400 MG TABLET PO SCH (10:14)
[2018-04-01] MEDS: METHOCARBAMOL 750 MG TABLET PO SCH (10:16)
[2018-04-01] MEDS: APIXABAN 5 MG TABLET PO SCH (10:16)
[2018-04-01] MEDS: ASCORBIC ACID 500 MG TABLET PO SCH (10:17)
[2018-04-01] MEDS: ASPIRIN 81 MG TABLET, CHEWABLE PO SCH (10:22)
[2018-04-01] MEDS: MULTIVIT-STRESS FORMULA/ZINC TABLET PO SCH (10:22)
[2018-04-01] MEDS: CHOLECALCIFEROL (D3) 400 UNIT TABLET PO SCH (10:22)
[2018-04-01] MEDS: METOPROLOL TARTRATE 100 MG TABLET PO SCH (10:22)
[2018-04-01] MEDS: LANSOPRAZOLE 15 MG TAB.RAP.DR PO SCH (10:22)
[2018-04-01] MEDS: FOLIC ACID 1 MG TABLET PO SCH (10:23)
[2018-04-01] MEDS: EZETIMIBE 10 MG TABLET PO SCH (10:23)
[2018-04-01] MEDS: AMLODIPINE BESYLATE 5 MG TABLET PO SCH (10:23)
[2018-04-01] MEDS: FLUTICASONE NASAL SPRAY 50 MCG/SPRY 120 SPRAY/16 GM NAREB SCH (10:24)
[2018-04-01] MEDS: INSULIN REG, HUMAN 100 UNIT/ML 3 ML VIAL (PYX) SUBCUT PRN (11:54)
--- NOTE | 2018-04-01 15:44 | RADIOLOGY REPORT (SQ) ---
EXAM DESCRIPTION: PICC INSERTION; FLUORO/CV PLACEMENT; U/S GUIDE FOR VASCULAR ACCESS COMPLETED DATE/TIME: 04/01/2018 3:35 pm REASON FOR STUDY: IV ANTIBIOTICS AFTER DISCHARGE; IV ABX; IV ACCESS COMPARISON: None. FLUOROSCOPY TIME: 12 seconds 2 images saved to PACS. TECHNIQUE: Fluoroscopic and ultrasound guided PICC placement. LIMITATIONS: None. PROCEDURE: After written consent and assessment were obtained, the patient was brought into the fluo roscopy room and place supine on the table. Ultrasound evaluation of potential access sites were perf ormed. After successfully identifying a patent right basilic vein, the right arm was prepped and drap ed in a sterile fashion along with the ultrasound probe. The entry site was anesthetized with 1% lido gwen. A 21 gauge 7 cm needle was advanced through the skin and into the basilic vein under live ultr asound guidance. An ultrasound image was saved to PACS confirming access site. A .018 guide wire wa s then inserted through the needle and into the venous system. The needle was the removed and an 11 b lade scalpel was used to make a 1cm skin incision. A 5 fr peel-away sheath was advanced over the wir e and into the venous system. A measurement was then made using the existing wire and live fluoroscop ic guidance. The wire was then removed and the trimmed. The PICC was advanced through the peel-away s graeme and into the venous system. The peel-away sheath was removed and the catheter was adhered to th e patients arm with a stat lock. The catheter was then aspirated and flushed and a sterile bandage wa s placed over the access site. A fluoroscopic spot image was saved to PACS confirming the catheter t ip within the superior vena cava. IMPRESSION: SUCCESSFUL PLACEMENT OF A 5 FR DUAL LUMEN 45 CM PICC IN THE RIGHT BASILIC VEIN. COMMENT: Patient medication list reviewed: Yes- Quality ID# [id number]:Eligible professional attests to doc umenting in the medical record they obtained, updated, or reviewed the patient's current medications. . Quality ID 145: Final reports for procedures using fluoroscopy that document radiation exposure laura cliff, or exposure time and number of fluorographic images (if radiation exposure indices are not avail able) Quality ID #76: The patient was prepped and draped using maximum sterile barrier technique including cap, mask, sterile gown, sterile gloves, a large sterile sheet, hand hygiene, and 2% Chlorhexidine fo r cutaneous antisepsis. When ultrasound is used, sterile ultrasound techniques are followed requiring sterile gel and sterile probes. TECHNICAL DOCUMENTATION: JOB ID: [id number]- All Rights Reserved rev-12/24 Reading location - IP/workstation name: [facility]
[2018-04-01 16:07] VITALS: BP 140/90
--- NOTE | 2018-04-01 16:13 | PDOC TRANSFER SUMMARY ---
General Admission Date/PCP: 03/15/18 16:27 JUAN PABLO TANNER MD - Transfer Diagnosis (1) Diabetic foot infection Is this a current diagnosis for this admission?: Yes (2) Osteomyelitis Is this a current diagnosis for this admission?: Yes (3) Pacemaker Is this a current diagnosis for this admission?: Yes (4) COPD (chronic obstructive pulmonary disease) Is this a current diagnosis for this admission?: Yes (5) Morbid obesity with BMI of 40.0-44.9, adult Is this a current diagnosis for this admission?: Yes (6) Abscess of foot Is this a current diagnosis for this admission?: Yes (7) Benzodiazepine dependence, continuous Is this a current diagnosis for this admission?: Yes (8) Chronic venous stasis dermatitis Is this a current diagnosis for this admission?: Yes (9) Diabetes mellitus Is this a current diagnosis for this admission?: Yes (10) Diabetic foot ulcer Is this a current diagnosis for this admission?: Yes (11) GERD (gastroesophageal reflux disease) Is this a current diagnosis for this admission?: Yes (12) Hyperlipidemia Is this a current diagnosis for this admission?: Yes (13) Hypertension Is this a current diagnosis for this admission?: Yes (14) ANDIE on CPAP Is this a current diagnosis for this admission?: Yes (15) Opiate dependence Is this a current diagnosis for this admission?: Yes - Transfer Medications Home Medications: Amlodipine Besylate [Norvasc 5 mg Tablet] 10 mg PO DAILY 01/18/18 Apixaban [Eliquis 5 mg Tablet] 5 mg PO BID 01/18/18 Aspirin 81 mg PO DAILY 01/18/18 Cholecalciferol (Vitamin D3) [Vitamin D3] 400 unit PO BID 01/18/18 Ezetimibe [Zetia 10 mg Tablet] 10 mg PO DAILY 01/18/18 Ferrous Sulfate 325 mg PO QHS 01/18/18 Folic Acid 1 mg PO DAILY 01/18/18 Furosemide [Lasix 20 mg Tablet] 20 mg PO QAM 01/18/18 Insulin Glargine,Hum.rec.anlog [Lantus] 88 unit SQ QHS 01/18/18 Magnesium Oxide [Mag-Ox 400 mg Tablet] 400 mg PO DAILY 01/18/18 Methadone HCl 20 mg PO TID 01/18/18 Methocarbamol [Robaxin-750] 750 mg PO BID 01/18/18 Metoprolol Tartrate [Lopressor 100 mg Tablet] 100 mg PO Q12 01/18/18 Oxycodone HCl [Oxycodone HCl 10 MG Tablet] 20 mg PO QIDP PRN 01/18/18 Promethazine HCl 25 mg PO TIDP PRN 01/18/18 Tiotropium Gordon [Spiriva] 18 mcg IH DAILY 01/18/18 Ascorbic Acid [Vitamin C] 1,000 mg PO DAILY 03/15/18 Clobetasol Propionate/Emoll [Clobetasol Emulsion 0.05% Foam] 50 gm TP BIDP PRN 03/15/18 Clonazepam [Klonopin 1 mg Tablet] 1 mg PO DAILYP PRN 03/15/18 Gabapentin [Neurontin 100 mg Capsule] 200 mg PO QHS 03/15/18 Metformin HCl [Glucophage] 850 mg PO AC 03/15/18 Multivit,Stress Formula/Zinc [Stress Formula with Zinc Tab] 1 each PO DAILY 02/23 Omeprazole 20 mg PO BID 03/15/18 Potassium Gluconate [Potassium] 600 mg PO BID 03/15/18 Testosterone Cypionate [Depo-Testosterone] 200 mg IM [id number] PRN 03/29/18 Transfer Medications: Current Medications Acetaminophen (Tylenol 325 Mg Tablet) 650 mg PO Q4HP PRN PRN Reason: FOR MILD PAIN OR TEMP Stop: 04/14/18 16:31 Amlodipine Besylate (Norvasc 5 Mg Tablet) 10 mg PO DAILY JACINTO Stop: 04/15/18 09:59 Last Admin: 04/01/18 10:23 Dose: 10 mg Apixaban (Eliquis 5 Mg Tablet) 5 mg PO Q12 JACINTO Stop: 04/20/18 21:59 Last Admin: 04/01/18 10:16 Dose: 5 mg Ascorbic Acid (Vitamin C 500 Mg Tablet) 1,000 mg PO DAILY JACINTO Stop: 04/15/18 09:59 Last Admin: 04/01/18 10:17 Dose: 1,000 mg Aspirin (Aspirin 81 Mg Chewable Tablet) 81 mg PO DAILY JACINTO Stop: 04/15/18 09:59 Last Admin: 04/01/18 10:22 Dose: 81 mg Cholecalciferol (Vitamin D3 400 Unit Tablet) 400 unit PO BID JACINTO Stop: 04/15/18 09:59 Last Admin: 04/01/18 10:22 Dose: 400 unit Dextrose (Dextrose Inj 50% Syringe (25 Gm/50 Ml)) 12.5 gm IV PRN PRN; Protocol PRN Reason: FOR BG 50-69 IN ALERT PATIENT Stop: 04/14/18 23:49 Dextrose (Dextrose Inj 50% Syringe (25 Gm/50 Ml)) 25 gm IV PRN PRN; Protocol PRN Reason: PER PROTOCOL Stop: 04/14/18 23:49 Ezetimibe (Zetia 10 Mg Tablet) 10 mg PO DAILY JACINTO Stop: 04/15/18 09:59 Last Admin: 04/01/18 10:23 Dose: 10 mg Ferrous Sulfate (Feosol 325 Mg Tablet) 325 mg PO QHS JACINTO Stop: 04/15/18 21:59 Last Admin: 03/31/18 21:40 Dose: 325 mg Fluticasone Propionate (Flonase Nasal [place] 50 Mcg/[place] 16 Gm) 1 spray NAREB Q12 JACINTO Stop: 04/19/18 21:59 Last Admin: 04/01/18 10:24 Dose: 1 spray Folic Acid (Folvite 1 Mg Tablet) 1 mg PO DAILY [facility] Stop: 04/16/18 09:59 Last Admin: 04/01/18 10:23 Dose: 1 mg Furosemide (Lasix 20 Mg Tablet) 20 mg PO QAM [facility] Stop: 04/16/18 07:59 Last Admin: 04/01/18 10:14 Dose: 20 mg Gabapentin (Neurontin 100 Mg Capsule) 200 mg PO QHS [facility] Stop: 04/15/18 21:59 Last Admin: 03/31/18 21:41 Dose: 200 mg Glucagon (Glucagen Inj 1 Mg Vial) 1 mg IM PRN PRN; Protocol PRN Reason: Evaluate for BG < 70 Stop: 04/14/18 23:49 Glucose (Glutose 40% Gel 15 Gm Tube) 30 gm PO PRN PRN; Protocol PRN Reason: FOR BG < 50 IN ALERT PATIENT Stop: 04/14/18 23:49 Glucose (Glutose 40% Gel 15 Gm Tube) 15 gm PO PRN PRN; Protocol PRN Reason: FOR BG 50-69 IN ALERT PATIENT Stop: 04/14/18 23:49 Piperacillin Sod/Tazobactam (Sod 4.5 gm/ Sodium Chloride) 100 mls @ 200 mls/hr IV Q6A [facility] Stop: 04/02/18 08:59 Last Admin: 04/01/18 15:48 Dose: 200 mls/hr, 200 mls/hr Insulin Glargine (Lantus Insulin 100 Unit/1 Ml 10 Ml) 88 unit SUBCUT QHS [facility] Stop: 04/15/18 21:59 Last Admin: 03/31/18 21:42 Dose: 88 units Insulin Human Regular (Humulin R (Pyxis) Insulin 100 Unit/Ml 3ml) 0 - 12 unit SUBCUT ACHSP PRN; Protocol PRN Reason: PER PROTOCOL Stop: 04/14/18 23:49 Last Admin: 04/01/18 11:54 Dose: 4 units Insulin Human Regular (Humulin R (Pyxis) Insulin 100 Unit/Ml 3ml) 48 unit SUBCUT MEALS [facility] Stop: 04/17/18 11:59 Last Admin: 04/01/18 11:38 Dose: 48 units Lansoprazole (Prevacid 15 Mg Odt Tablet) 15 mg PO BID [facility] Stop: 04/15/18 09:59 Last Admin: 04/01/18 10:22 Dose: 15 mg Magnesium Oxide (Mag-Ox 400 Mg Tablet) 400 mg PO DAILY [facility] Stop: 04/15/18 09:59 Last Admin: 04/01/18 10:14 Dose: 400 mg Metformin HCl (Glucophage 850 Mg Tablet) 850 mg PO AC [facility] Stop: 04/15/18 15:59 Last Admin: 04/01/18 10:15 Dose: 850 mg Methadone HCl (Dolophine 10 Mg Tablet) 10 mg PO Q12@0700,1900 [facility] Stop: 04/05/18 12:59 Last Admin: 04/01/18 11:57 Dose: Not Given Methocarbamol (Robaxin 750 Mg Tablet) 750 mg PO BID [facility] Stop: 04/15/18 09:59 Last Admin: 04/01/18 10:16 Dose: 750 mg Metoprolol Tartrate (Lopressor 100 Mg Tablet) 100 mg PO Q12 [facility] Stop: 04/15/18 09:59 Last Admin: 04/01/18 10:22 Dose: 100 mg Tiotropium Gordon (Spiriva Handihaler 5 Cap/Kit (18 Mcg/Cap)) 1 cap IH DAILY [facility] Stop: 04/15/18 09:59 Last Admin: 04/01/18 10:13 Dose: 1 cap Vitamin B Complex/Vit C/Vit E/Zinc (Zbec Tablet) 1 tab PO DAILY [facility] Stop: 04/15/18 09:59 Last Admin: 04/01/18 10:22 Dose: 1 tab - Allergies Allergies/Adverse Reactions: Iodinated Contrast- Oral and IV Dye [IV Dye, Iodine Containing] Allergy (Severe , Verified 01/17/18 17:12) vancomycin [Vancomycin] Allergy (Severe, Verified 01/17/18 17:12) Pruritis levofloxacin [From Levaquin] Allergy (Unknown, Verified 01/17/18 17:12) doxycycline [Doxycycline] Allergy (Verified 01/17/18 17:12) minocycline [Minocycline] Allergy (Verified 01/17/18 17:12) simvastatin [Simvastatin] Allergy (Verified 01/17/18 17:12) - Diet/Activity Discharge Diet: Regular Hospital Course Hospital Course: The patient was admitted to a medical bed. Dr. Pham from podiatry was consulted to evaluate the patients foot. The patient was started on IV Zosyn. The patient's foot was debrided by Dr. Pham on 03/21/2018 as well as upon the patient's presentation to the hospital on 03/15/2018. Tissue was sent for culture from Dr. Pham's office prior to the patient's admission and had grown out pseudomonas that was sensitive to zosyn. I discussed the patient with Dr. Cruz from [facility] infectious disease. She agreed with the Zosyn, but recommended the 4.5 gram dose 6 x daily for 6-8 weeks given the patient's size. The patient has had a PICC placed. He will transfere to [place] today for the completion of his antibiotics. Physical Exam Vital Signs: Temp Pulse Resp BP Pulse Ox 97.7 F 69 19 140/70 H 95 04/01/18 12:00 04/01/18 12:00 04/01/18 12:00 04/01/18 12:00 04/01/18 12:00 Intake & Output 03/31/18 04/01/18 04/02/18 06:59 06:59 06:59 Intake Total 2580 1767 100 Balance 2580 1767 100 Weight 166.3 kg 166.2 kg General appearance: PRESENT: no acute distress, cooperative, morbidly obese Respiratory exam: PRESENT: other - No increased work of breathing.. ABSENT: rales, rhonchi, wheezes Cardiovascular exam: PRESENT: RRR, other - No lateral PMI. No thrills.. ABSENT : gallop, rubs, systolic murmur Pulses: PRESENT: other - Diminished distal pulses. GI/Abdominal exam: PRESENT: other - Morbidly obese. Bowel sounds are distant. I am unable to evaluate the patient's abdomen for organomegaly, masses, or hernais due to his body habitus. Rectal exam: PRESENT: deferred Neurological exam: PRESENT: alert, awake, oriented to person, oriented to place , oriented to time, oriented to situation, CN II-XII grossly intact. ABSENT: motor sensory deficit Skin exam: PRESENT: dry, intact, warm Results Laboratory Results: 03/21/18 09:28 03/21/18 09:28 03/15/18 03/16/18 03/16/18 22:42 04:45 04:45 Troponin I < 0.012 0.017 NT-Pro-B Natriuret Pep 119 Impressions: Foot X-Ray 03/21/18 00:00 IMPRESSION: 1 Since the prior examination dated 03/15/2018, the margins of the distal end of the fifth metatarsal bone appear slightly more irregular and lucent in appearance, raising the question of infection. 2 Soft tissue injury and swelling are again identified at the fifth metatarsal site. Soft tissue swelling of the right foot. Guidance Fluoroscopy 04/01/18 00:00 IMPRESSION: SUCCESSFUL PLACEMENT OF A 5 FR DUAL LUMEN 45 CM PICC IN THE RIGHT BASILIC VEIN. Interventional Vascular Procedure 04/01/18 00:00 IMPRESSION: SUCCESSFUL PLACEMENT OF A 5 FR DUAL LUMEN 45 CM PICC IN THE RIGHT BASILIC VEIN. PICC Line Insertion 04/01/18 00:00 IMPRESSION: SUCCESSFUL PLACEMENT OF A 5 FR DUAL LUMEN 45 CM PICC IN THE RIGHT BASILIC VEIN. Plan Discharge Plan: [facility]. Time Spent: Greater than 30 Minutes
--- NOTE | 2018-04-23 17:05 | Operative Report ---
Operative Report DATE OF SURGERY: 03/18/18 Operative Report: Debridement of wound left foot PREOPERATIVE DIAGNOSIS: Diabetic foot Ulcer sub 1st metatarsal head left foot. POSTOPERATIVE DIAGNOSIS: Same OPERATION: Debridement of wound at bedside SURGEON: MARIA MARTINES ANESTHESIA: Other TISSUE REMOVED OR ALTERED: devitalized skin, callus, slough COMPLICATIONS: None ESTIMATED BLOOD LOSS: <0.1ml PROCEDURE: Diabetic Ulcer is located on the left foot - plantar to the first metatarsal head. A skin/subcutaneous tissue level excisional/surgical debridement with a total area debrided of 0.25 sq cm was performed. Subcutaneous was removed along with devitalized tissue: callus and slough. The following instrument(s) were used: curette. Pain control was achieved using N/A, patient is insensate. A time out was conducted prior to the start of the procedure. A minimal amount of bleeding was controlled with pressure. The procedure was tolerated well with a pain level of 0 throughout and a pain level of 0 following the procedure. Post Debridement Measurements: 0.5cm length x 0.5cm width x 0.1cm depth; with an area of 0.25 sq cm and a volume of 0.025 cubic cm; Acticoat flex was applied and covered with dry dressing.
--- NOTE | 2018-04-23 17:15 | Operative Report ---
Operative Report DATE OF SURGERY: 03/18/18 PREOPERATIVE DIAGNOSIS: Diabetic foot Ulcer sub 5th metatarsal head right foot. POSTOPERATIVE DIAGNOSIS: Same OPERATION: Debridement of wound at bedside SURGEON: MARIA MARTINES ANESTHESIA: Other TISSUE REMOVED OR ALTERED: devitalized skin, callus, slough, subcutaneous tissue ESTIMATED BLOOD LOSS: <0.1ml PROCEDURE: A Diabetic Ulcer located on the right, lateral foot just plantar to the 5th MTP joint area. A skin/subcutaneous tissue level excisional/surgical debridement with a total area debrided of 1 sq cm was performed. Subcutaneous was removed along with devitalized tissue: callus and slough. The following instrument(s) were used: curette. Pain control was achieved using N/A, patient is insensate. A time out was conducted prior to the start of the procedure. A minimal amount of bleeding was controlled with pressure. The procedure was tolerated well with a pain level of 0 throughout and a pain level of 0 following the procedure. Post Debridement Measurements: 1.5cm length x 1cm width x 2.0cm depth; Acticoat flex was packed into the wound and then covered with a dry dressing.
== END 2018-04-01 18:34 | DRG 623 ==
LOC: ER 11:38 → EH 16:27 → 4S 20:45
PROVIDERS: ADMIT Internal Medicine; ATTEND Internal Medicine
PROC: 0JBQ0ZZ Excision of Right Foot Subcutaneous Tissue and Fascia, Open Approach (ICD-10-PCS; principal; 2018-03-18)
PROC: 0JBR0ZZ Excision of Left Foot Subcutaneous Tissue and Fascia, Open Approach (ICD-10-PCS; 2018-03-18)
PROC: 02HV33Z Insertion of Infusion Device into Superior Vena Cava, Percutaneous Approach (ICD-10-PCS; 2018-04-01)
PROC: B548ZZA Ultrasonography of Superior Vena Cava, Guidance (ICD-10-PCS; 2018-04-01)
DX: E11.69 Type 2 diabetes mellitus with other specified complication (principal); Z68.41 Body mass index [BMI] 40.0-44.9, adult; F13.20 Sedative, hypnotic or anxiolytic dependence, uncomplicated; F11.20 Opioid dependence, uncomplicated; M86.471 Chronic osteomyelitis with draining sinus, right ankle and foot; L02.611 Cutaneous abscess of right foot; E11.621 Type 2 diabetes mellitus with foot ulcer; E66.01 Morbid (severe) obesity due to excess calories; G47.33 Obstructive sleep apnea (adult) (pediatric); E11.51 Type 2 diabetes mellitus with diabetic peripheral angiopathy without gangrene; I25.2 Old myocardial infarction; B96.5 Pseudomonas (aeruginosa) (mallei) (pseudomallei) as the cause of diseases classified elsewhere; J44.9 Chronic obstructive pulmonary disease, unspecified; K21.9 Gastro-esophageal reflux disease without esophagitis; E87.5 Hyperkalemia; G89.29 Other chronic pain; L97.521 Non-pressure chronic ulcer of other part of left foot limited to breakdown of skin; L97.514 Non-pressure chronic ulcer of other part of right foot with necrosis of bone; I87.2 Venous insufficiency (chronic) (peripheral); E11.628 Type 2 diabetes mellitus with other skin complications; L03.031 Cellulitis of right toe; I50.9 Heart failure, unspecified; I11.0 Hypertensive heart disease with heart failure; F32.9 Major depressive disorder, single episode, unspecified; Z90.49 Acquired absence of other specified parts of digestive tract; Z87.891 Personal history of nicotine dependence; Z82.49 Family history of ischemic heart disease and other diseases of the circulatory system; Z79.4 Long term (current) use of insulin; Z95.0 Presence of cardiac pacemaker; Z79.899 Other long term (current) drug therapy; Z79.82 Long term (current) use of aspirin; Z91.041 Radiographic dye allergy status; Z88.1 Allergy status to other antibiotic agents; Z88.3 Allergy status to other anti-infective agents; Z79.02 Long term (current) use of antithrombotics/antiplatelets; Z89.421 Acquired absence of other right toe(s); Z86.718 Personal history of other venous thrombosis and embolism; Z86.711 Personal history of pulmonary embolism
CPT/HCPCS: 36415; 36569; 76937; 77001; 80048; 80053; 82962; 83036; 83735; 83880; 84484; 85025; 85610; 85730; 87040; 99285; J1642; J1815; J2543; J3490

== ENCOUNTER → 2018-05-02 | Day surgery (SDC) | payer MEDICARE ==
--- NOTE | 2018-05-02 12:45 | RADIOLOGY REPORT (SQ) ---
EXAM DESCRIPTION: PICC LINE REPLACEMENT; FLUORO/CV PLACEMENT COMPLETED DATE/TIME: 05/02/2018 12:09 pm REASON FOR STUDY: PICC LINE REPLACEMENT, IV ABX; PICC LINE REPLACEMENT COMPARISON: 04/01/2018 FLUOROSCOPY TIME: 43 seconds 1 fluoroscopic digital images saved to PACS. TECHNIQUE: Fluoroscopic guided PICC replacement. LIMITATIONS: None. PROCEDURE: After written consent and assessment were obtained, the patient was brought into the fluo roscopy room and place supine on the table. The right arm existing PICC was prepped and draped in a sterile fashion. The entry site was anesthetized with 1% lidocaine. A .018 guide wire was then ins erted through the existing PICC and into the venous system. The old catheter was then removed and a n ew catheter measuring 45 cm was advanced over the wire and into the venous system. The wire was then removed and the catheter was adhered to the patients arm with a stat lock. The catheter was then asp irated and flushed and a sterile bandage was placed over the access site. A fluoroscopic spot image was saved to PACS confirming the catheter tip within the superior vena cava. IMPRESSION: SUCCESSFUL OVER THE WIRE REPLACEMENT OF AN OLD PICC FOR A NEW ONE THAT IS 5 FR dual LUME N 45 CM PICC IN THE RIGHT ARM. COMMENT: Patient medication list reviewed: Yes- Quality ID# [id number]:Eligible professional attests to doc umenting in the medical record they obtained, updated, or reviewed the patient's current medications. . Quality ID 145: Final reports for procedures using fluoroscopy that document radiation exposure laura cliff, or exposure time and number of fluorographic images (if radiation exposure indices are not avail able) Quality ID #76: The patient was prepped and draped using maximum sterile barrier technique including cap, mask, sterile gown, sterile gloves, a large sterile sheet, hand hygiene, and 2% Chlorhexidine fo r cutaneous antisepsis. When ultrasound is used, sterile ultrasound techniques are followed requiring sterile gel and sterile probes. TECHNICAL DOCUMENTATION: JOB ID: [id number] [employer]- All Rights Reserved Reading location - IP/workstation name: [email or web address]
== END ==
LOC: RAD 09:54
PROVIDERS: ATTEND Family Medicine
DX: Z45.89 Encounter for adjustment and management of other implanted devices (principal); Z79.2 Long term (current) use of antibiotics
CPT/HCPCS: 36584; 77001; C1769; J1642

== ENCOUNTER 2018-05-17 22:11 | Inpatient (IN) | payer OTHER, MEDICARE ==
[2018-05-18] MEDS ORDERED: PIPERACILLIN/TAZOBACTAM 3.375 GM VIAL IV ONE (00:20)
--- NOTE | 2018-05-18 00:24 | ER Document Report ---
ED General - General Chief Complaint: Leg Swelling Stated Complaint: SKIN PROBLEM Time Seen by Provider: 05/18/18 00:17 Mode of Arrival: Ambulatory Information source: Patient Notes: 67-year-old male with congestive heart failure, coronary artery disease, hyperlipidemia, hypertension, COPD, type 2 diabetes, history of osteomyelitis presents with left lower extremity pain, redness and warmth that started 1 day prior to arrival. Patient states that 2 days prior to arrival he had a trip and fall and was unable to get off the floor independently. He states that he laid there for a few hours and then called an ENT friend that lives down the road. He states that one day after the fall he noticed some redness and increased pain. He believes that the leg became infected after he soiled himself and laid there. Patient was recently discharged from [facility] where he was receiving Zosyn. He admits to chills, sweats. He denies chest pain, shortness of breath, abdominal pain, back pain. TRAVEL OUTSIDE OF THE [place] IN LAST 30 DAYS: No - HPI Onset: Other Onset/Duration: Gradual, Persistent Quality of pain: Achy, Burning Severity: Mild Associated symptoms: Chills, Shortness of breath. denies: Nausea, Vomiting Exacerbated by: Movement, Walking Relieved by: Denies Similar symptoms previously: Yes Recently seen / treated by doctor: Yes - Related Data Allergies/Adverse Reactions: Iodinated Contrast- Oral and IV Dye [IV Dye, Iodine Containing] Allergy (Severe , Verified 01/17/18 17:12) vancomycin [Vancomycin] Allergy (Severe, Verified 01/17/18 17:12) Pruritis levofloxacin [From Levaquin] Allergy (Unknown, Verified 01/17/18 17:12) doxycycline [Doxycycline] Allergy (Verified 01/17/18 17:12) minocycline [Minocycline] Allergy (Verified 01/17/18 17:12) simvastatin [Simvastatin] Allergy (Verified 01/17/18 17:12) Past Medical History - General Information source: Patient, [facility] Records - Social History Smoking Status: Never Smoker Frequency of alcohol use: None Drug Abuse: None Lives with: Alone Family History: Hypertension Patient has suicidal ideation: No Patient has homicidal ideation: No - Past Medical History Cardiac Medical History: Reports: Hx Congestive Heart Failure, Hx Coronary Artery Disease - HIGH CHOLESTEROL, Hx DVT, Hx Heart Attack - "COUPLE OF THEM", Hx Hypercholesterolemia, Hx Hypertension, Hx Pulmonary Embolism Pulmonary Medical History: Reports: Hx COPD - MILD, ON 3LNC "MOST OF THE TIME", Hx Sleep Apnea Denies: Hx Asthma, Hx Bronchitis, Hx Pneumonia Neurological Medical History: Denies: Hx Cerebrovascular Accident, Hx Seizures Endocrine Medical History: Reports: Hx Diabetes Mellitus Type 2 Renal/ Medical History: Denies: Hx Peritoneal Dialysis GI Medical History: Reports: Hx Gastroesophageal Reflux Disease Musculoskeletal Medical History: Reports Hx Arthritis - CHRONIC PAIN MANAGEMENT FOR OSTEOARTHRITIS Psychiatric Medical History: Reports: Hx Depression Traumatic Medical History: Reports: Hx Fractures Past Surgical History: Reports: Hx Abdominal Surgery, Hx Appendectomy, Hx Cardiac Catheterization, Hx Cardiac Surgery, Hx Pacemaker - Immunizations Hx Diphtheria, Pertussis, Tetanus Vaccination: No Hx Pneumococcal Vaccination: 05/09/14 Review of Systems - Review of Systems Notes: REVIEW OF SYSTEMS: CONSTITUTIONAL : Denies fever. Denies recent illness. Denies weight loss, recent hospitalizations. EENT: Denies visual changes, eye pain. Denies sore throat, oral lesions, difficulty swallowing. CARDIOVASCULAR: Denies chest pain. Denies palpitations. Denies lower extremity edema. RESPIRATORY: Denies cough. Denies shortness of breath, wheezing. GASTROINTESTINAL: Denies abdominal pain or distention. Denies nausea, vomiting , or diarrhea. Denies blood in vomitus, stools, or per rectum. Denies black, tarry stools. Denies constipation. GENITOURINARY: Denies difficulty urinating, painful urination, frequency, blood in urine, testicular pain or penile discharge. MUSCULOSKELETAL: Denies back or neck pain or stiffness. SKIN: + rash, lesions or sores. HEMATOLOGIC : Denies easy bruising or bleeding. LYMPHATIC: Denies swollen glands. NEUROLOGICAL: Denies confusion or altered mental status. Denies loss of consciousness. Denies dizziness or lightheadedness. Denies headache. Denies weakness or paralysis. Denies problems difficulty with ambulation, slurred speech. Denies sensory loss, numbness, or tingling. Denies seizures. PSYCHIATRIC: Denies anxiety or stress. Denies depression, suicidal ideation, or Physical Exam - Vital signs Vitals: Temp Pulse Resp BP Pulse Ox 98.5 F 87 16 143/67 H 94 05/17/18 22:34 05/17/18 22:34 05/17/18 22:34 05/17/18 22:34 05/17/18 22:34 Interpretation: Hypertensive - Notes Notes: PHYSICAL EXAMINATION: GENERAL: Well-appearing, well-nourished and in no acute distress. HEAD: Atraumatic, normocephalic. EYES: Pupils equal round and reactive to light, extraocular movements intact, sclera anicteric, conjunctiva are normal. ENT: Nares patent, oropharynx clear without exudates. Moist mucous membranes. NECK: Normal range of motion, supple without lymphadenopathy LUNGS: Breath sounds clear to auscultation bilaterally and equal. No wheezes rales or rhonchi. HEART: Regular rate and rhythm without murmurs ABDOMEN: Soft, nontender, nondistended abdomen. No guarding, no rebound. No masses appreciated. Musculoskeletal: Normal range of motion, no pitting or edema. No cyanosis. Left lower extremity erythematous with multiple lesions, skin breakdown. NEUROLOGICAL: Cranial nerves grossly intact. Normal speech, normal gait. Normal sensory, motor exams PSYCH: Normal mood, normal affect. SKIN: Erythema, warmth of the left lower extremity. Multiple wounds on the right lower extremity, feet bilaterally. Bilateral lower extremity skin the color changes. Course - Re-evaluation Re-evalutation: Laboratory 05/18/18 05/18/18 00:36 00:36 WBC 12.1 H RBC 5.61 H Hgb 16.3 Hct 48.3 MCV 86 MCH 29.1 MCHC 33.8 RDW 16.2 H Plt Count 274 Seg Neutrophils % 80.6 H Lymphocytes % 10.0 L Monocytes % 7.6 Eosinophils % 1.3 Basophils % 0.5 Absolute Neutrophils 9.8 H Absolute Lymphocytes 1.2 Absolute Monocytes 0.9 Absolute Eosinophils 0.2 Absolute Basophils 0.1 Sodium 139.6 Potassium 5.0 Chloride 101 Carbon Dioxide 26 Anion Gap 13 BUN 26 H Creatinine 1.16 Est GFR ( Amer) > 60 Est GFR (Non-Af Amer) > 60 Glucose 210 H Calcium 9.2 Total Bilirubin 0.6 Direct Bilirubin 0.4 Neonat Total Bilirubin Not Reportable Neonat Direct Bilirubin Not Reportable Neonat Indirect Bili Not Reportable AST 63 H ALT 49 Alkaline Phosphatase 36 L Total Protein 6.8 Albumin 3.7 Tibia/Fibula X-Ray 05/18/18 00:20 IMPRESSION: No acute fracture or dislocation. No radiographic evidence of osteomyelitis 2010 [employer]- All Rights Reserved 05/18/18 02:06 67-year-old male with multiple comorbidities presents with left lower extremity pain, swelling and redness that started 2 days prior to arrival. Patient just spent almost 2 months in the hospital and nursing facility for osteomyelitis. He was receiving Zosyn up until last Wednesday when he was discharged from [facility]. Vital signs reviewed upon arrival. Patient is afebrile, mildly hypertensive. He does not appear toxic or dehydrated. He is in no acute distress. Exam is significant for a left lower extremity that is markedly erythematous, warm and tender. DVT is in the differential diagnosis but patient is currently on Eliquis and venous Doppler will have to be obtained as an inpatient if admitting provider feels it is necessary. Patient was given Zosyn since previous tissue samples did show Pseudomonas. CBC does show a mild leukocytosis. BMP shows hyperglycemia without evidence of DKA. X-ray was obtained secondary to the patient's report of fall and negative for any acute fracture dislocation or evidence of osteomyelitis. Patient was discussed with the hospitalist Dr. Gonzalez who agrees to admission. 05/18/18 02:07 05/18/18 02:10 Dictation on this chart was performed using voice recognition software and may result in unintended grammatical, spelling, syntax or errors. - Vital Signs Vital signs: Temp Pulse Resp BP Pulse Ox 98.5 F 87 16 143/67 H 94 05/17/18 22:34 05/17/18 22:34 05/17/18 22:34 05/17/18 22:34 05/17/18 22:34 - Laboratory Result Diagrams: 05/18/18 00:36 05/18/18 00:36 Laboratory results interpreted by me: 05/18/18 05/18/18 00:36 00:36 WBC 12.1 H RBC 5.61 H RDW 16.2 H Seg Neutrophils % 80.6 H Lymphocytes % 10.0 L Absolute Neutrophils 9.8 H BUN 26 H Glucose 210 H AST 63 H Alkaline Phosphatase 36 L - Diagnostic Test Radiology reviewed: Image reviewed, Reports reviewed Discharge - Discharge Clinical Impression: Cellulitis of left lower extremity Diabetes mellitus Qualifiers: Diabetes mellitus type: type 2 Diabetes mellitus alf insulin use: 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 Diabetes mellitus complication status: without complication Qualified Code(s): E11.9 - Type 2 diabetes mellitus without complications Diabetic foot ulcer Qualifiers: Diabetic foot ulcer location: toe Diabetes mellitus type: type 2 Laterality: unspecified laterality Non-pressure ulcer stage: unspecified non-pressure ulcer stage Qualified Code(s): E11.621 - Type 2 diabetes mellitus with foot ulcer; L97.509 - Non-pressure chronic ulcer of other part of unspecified foot with unspecified severity; L97.509 - Non-pressure chronic ulcer of other part of unspecified foot with unspecified severity; L97.509 - Non-pressure chronic ulcer of other part of unspecified foot with unspecified severity; L97.509 - Non -pressure chronic ulcer of other part of unspecified foot with unspecified severity Hypertension Qualifiers: Hypertension type: unspecified Qualified Code(s): I10 - Essential (primary) hypertension Condition: Good Disposition: ADMITTED INPATIENT Admitting Provider: Hospitalist Unit Admitted: Telemetry Referrals: MOY MYLES DO [Primary Care Provider] - Follow up as needed
[2018-05-18 00:55] LABS: ABSOLUTE BASOPHILS # (AUTO) 0.1 10^3/uL (0.0-0.2); ABSOLUTE EOSINOPHILS # (AUTO) 0.2 10^3/uL (0.0-0.6); ABSOLUTE LYMPHOCYTES (AUTO) 1.2 10^3/uL (0.5-4.7); ABSOLUTE MONOCYTES (AUTO) 0.9 10^3/uL (0.1-1.4); ABSOLUTE NEUT (AUTO) 9.8 10^3/uL (1.7-8.2); BASOPHILS % (AUTO) 0.5 % (0-2); EOSINOPHILS % (AUTO) 1.3 % (0-6); HEMATOCRIT 48.3 % (37.9-51.0); HEMOGLOBIN 16.3 g/dL (13.5-17.0); MEAN CORPUSCULAR HEMOGLOBIN 29.1 pg (27.0-33.4); MEAN CORPUSCULAR HGB CONC 33.8 g/dL (32.0-36.0); MEAN CORPUSCULAR VOLUME 86 fl (80-97); MONOCYTES % (AUTO) 7.6 % (3-13); PLATELET COUNT 274 10^3/uL (150-450); RED BLOOD COUNT 5.61 10^6/uL (4.35-5.55); RED CELL DISTRIBUTION WIDTH 16.2 % (11.5-14.0); SEGMENTED NEUTROPHILS % (AUTO) 80.6 % (42-78); TOTAL CELLS COUNTED % (AUTO) 100 %; WHITE BLOOD COUNT 12.1 10^3/uL (4.0-10.5)
[2018-05-18 01:00] LABS: ALANINE AMINOTRANSFERASE 49 U/L (21-72); ALBUMIN 3.7 g/dL (3.5-5.0); ALKALINE PHOSPHATASE 36 U/L (38-126); ANION GAP 13 (5-19); ASPARTATE AMINO TRANSFERASE 63 U/L (17-59); BILIRUBIN,DIRECT 0.4 mg/dL (0.0-0.4); BILIRUBIN,TOTAL 0.6 mg/dL (0.2-1.3); BLOOD UREA NITROGEN 26 mg/dL (7-20); CALCIUM 9.2 mg/dL (8.4-10.2); CARBON DIOXIDE 26 mmol/L (22-30); CHLORIDE 101 mmol/L (98-107); GLUCOSE 210 mg/dL (75-110); SODIUM 139.6 mmol/L (137-145); TOTAL PROTEIN 6.8 g/dL (6.3-8.2)
--- NOTE | 2018-05-18 01:20 | RADIOLOGY REPORT (SQ) ---
EXAM DESCRIPTION: XR TIBIA FIBULA 2 VIEWS COMPLETED DATE/TME: 05/18/2018 00:20 CLINICAL HISTORY: 67 years, Male, pain erythema COMPARISON: None. NUMBER OF VIEWS: Two TECHNIQUE: Two views of the left tibia and fibula LIMITATIONS: None. FINDINGS: There is no acute fracture or dislocation. There is no erosion or periosteal reaction. Vascular calcifications are noted. There is narrowing of the medial compartment with joint space narrowing and subchondral sclerosis. IMPRESSION: No acute fracture or dislocation. No radiographic evidence of osteomyelitis [address] [employer]- All Rights Reserved
[2018-05-18 02:07] LABS: CREATINE KINASE 1108 U/L (55-170)
[2018-05-18] MEDS ORDERED: HYDROMORPHONE HCL INJ/PF 2 MG/ML AMPULE IV ONE (02:35)
[2018-05-18] MEDS ORDERED: CLONAZEPAM 1 MG TABLET PO PRN ×2 (03:19→13:56)
[2018-05-18] MEDS ORDERED: MAGNESIUM HYDROXIDE SUSP 30 ML UDCUP PO PRN (03:23)
[2018-05-18] MEDS ORDERED: GLUCAGON,HUMAN RECOMB 1 MG INJ IM PRN (03:23)
[2018-05-18] MEDS ORDERED: DEXTROSE 50%-WATER 25 GM/50 ML DISP.SYRIN IV PRN ×2 (03:23)
[2018-05-18] MEDS ORDERED: INSULIN LISPRO 100 UNIT/ML 3 ML VIAL SUBCUT PRN (03:23)
[2018-05-18] MEDS ORDERED: DEXTROSE 40% GEL 15 GM TUBE PO PRN ×2 (03:23)
[2018-05-18] MEDS ORDERED: PIPERACILLIN/TAZOBACTAM 4.5 GM VIAL IV PRN (03:58)
[2018-05-18] MEDS ORDERED: KETOROLAC TROMETHAMINE INJ/PF 30 MG/1 ML SDV IV PRN (04:59)
[2018-05-18] MEDS ORDERED: PIPERACILLIN/TAZOBACTAM 4.5 GM VIAL IV ONE (05:46)
[2018-05-18] MEDS ORDERED: HEPARIN SOD (PORCINE) 5,000 UNIT/ML 1 ML SYRINGE SUBCUT SCH (06:00)
[2018-05-18] MEDS: PIPERACILLIN SODIUM/TAZOBACTAM 4.5 GM in NORMAL SALINE 100 ML IV SCH ×4 (06:12→23:29)
--- NOTE | 2018-05-18 06:22 | PDOC H&P ---
History of Present Illness Admission Date/PCP: 05/18/18 02:10 MOY MYLES DO Patient complains of: Left leg pain History of Present Illness: HEIDI ARSHAD is a 67 year old male with a past medical history of morbid obesity, venous stasis, left-sided osteomyelitis, insulin-dependent diabetes, opiate dependent chronic pain, obstructive sleep apnea, diabetes and pulmonary emboli on chronic anticoagulation with Eliquis. Diastolic heart failure, and anxiety. Patient complains he was discharged from longterm 4 weeks ago in an unstable state. He presents with a slip and fall 2 days ago, unable to stand he remained on the floor approximately 12 hours. He complains of left- sided leg pain, imaging in the emergency room is unremarkable however he has acute on chronic venous stasis, cellulitis, and rhabdomyolysis. He is referred to the hospitalist for admission. Past Medical History Cardiac Medical History: Reports: Congestive Heart Failure, Coronary Artery Disease - HIGH CHOLESTEROL, DVT, Myocardial Infarction - "COUPLE OF THEM", Hyperlipidema, Hypertension, Pulmonary Embolism Pulmonary Medical History: Reports: Chronic Obstructive Pulmonary Disease (COPD ) - MILD, ON 3LNC "MOST OF THE TIME", Sleep Apnea Denies: Asthma, Bronchitis, Pneumonia Neurological Medical History: Denies: Seizures Endocrine Medical History: Reports: Diabetes Mellitus Type 2, Obesity GI Medical History: Reports: Gastroesophageal Reflux Disease Musculoskeltal Medical History: Reports: Arthritis - CHRONIC PAIN MANAGEMENT FOR OSTEOARTHRITIS Psychiatric Medical History: Reports: Depression Hematology: Denies: Anemia Past Surgical History Past Surgical History: Reports: Appendectomy, Cardiac Catheterization, Pacemaker Social History Information Source: Patient, Emergency Med Personnel, [facility] Records Lives with: Alone Smoking Status: Never Smoker Frequency of Alcohol Use: None Hx Recreational Drug Use: No Drugs: None Hx Prescription Drug Abuse: No - Advance Directive Resuscitation Status: Full Code Family History Family History: Hypertension Parental Family History Reviewed: Yes Children Family History Reviewed: Yes Sibling(s) Family History Reviewed.: Yes Medication/Allergy Home Medications: Amlodipine Besylate [Norvasc 5 mg Tablet] 10 mg PO DAILY 01/18/18 Apixaban [Eliquis 5 mg Tablet] 5 mg PO BID 01/18/18 Aspirin 81 mg PO DAILY 01/18/18 Cholecalciferol (Vitamin D3) [Vitamin D3] 400 unit PO BID 01/18/18 Ezetimibe [Zetia 10 mg Tablet] 10 mg PO DAILY 01/18/18 Ferrous Sulfate 325 mg PO QHS 01/18/18 Folic Acid 1 mg PO DAILY 01/18/18 Furosemide [Lasix 20 mg Tablet] 20 mg PO QAM 01/18/18 Insulin Glargine,Hum.rec.anlog [Lantus] 88 unit SQ QHS 01/18/18 Magnesium Oxide [Mag-Ox 400 mg Tablet] 400 mg PO DAILY 01/18/18 Methadone HCl 20 mg PO TID 01/18/18 Methocarbamol [Robaxin-750] 750 mg PO BID 01/18/18 Metoprolol Tartrate [Lopressor 100 mg Tablet] 100 mg PO Q12 01/18/18 Oxycodone HCl [Oxycodone HCl 10 MG Tablet] 20 mg PO QIDP PRN 01/18/18 Promethazine HCl 25 mg PO TIDP PRN 01/18/18 Tiotropium [place] [Spiriva] 18 mcg IH DAILY 01/18/18 Ascorbic Acid [Vitamin C] 1,000 mg PO DAILY 03/15/18 Clobetasol Propionate/Emoll [Clobetasol Emulsion 0.05% Foam] 50 gm TP BIDP PRN 03/15/18 Clonazepam [Klonopin 1 mg Tablet] 1 mg PO DAILYP PRN 03/15/18 Gabapentin [Neurontin 100 mg Capsule] 200 mg PO QHS 03/15/18 Metformin HCl [Glucophage] 850 mg PO AC 03/15/18 Multivit,Stress Formula/Zinc [Stress Formula with Zinc Tab] 1 each PO DAILY 02/23 Omeprazole 20 mg PO BID 03/15/18 Potassium Gluconate [Potassium] 600 mg PO BID 03/15/18 Testosterone Cypionate [Depo-Testosterone] 200 mg IM [id number] PRN 03/29/18 Aspirin [Aspirin 81 mg Chewable Tablet] 81 mg PO DAILY tab.chew 03/31/18 Fluticasone Propionate [Flonase Nasal Dalton 50 Mcg/Dalton 16 gm] 1 spray NAREB Q12 #1 spray.pump 03/31/18 Insulin Regular, Human [Humulin R (Reg) Insulin 100 unit/mL] 48 unit SUBCUT MEALS #1 vial 03/31/18 Methadone HCl [Dolophine 10 mg Tablet] 10 mg PO Q12@0700,1900 30 Days #60 tablet 03/31/18 Piperacillin Sodium/Tazobactam [Zosyn Inj 4.5 gm Vial] 4.5 gm IV Q6A 30 Days # 120 vial 03/31/18 Allergies/Adverse Reactions: Iodinated Contrast- Oral and IV Dye [IV Dye, Iodine Containing] Allergy (Severe , Verified 01/17/18 17:12) vancomycin [Vancomycin] Allergy (Severe, Verified 01/17/18 17:12) Pruritis levofloxacin [From Levaquin] Allergy (Unknown, Verified 01/17/18 17:12) doxycycline [Doxycycline] Allergy (Verified 01/17/18 17:12) minocycline [Minocycline] Allergy (Verified 01/17/18 17:12) simvastatin [Simvastatin] Allergy (Verified 01/17/18 17:12) Review of Systems Constitutional: ABSENT: chills, fever(s), headache(s), weight gain, weight loss Eyes: ABSENT: visual disturbances Ears: ABSENT: hearing changes Cardiovascular: ABSENT: chest pain, dyspnea on exertion, edema, orthropnea, palpitations Respiratory: ABSENT: cough, hemoptysis Gastrointestinal: ABSENT: abdominal pain, constipation, diarrhea, hematemesis, hematochezia, nausea, vomiting Genitourinary: ABSENT: dysuria, hematuria Musculoskeletal: ABSENT: joint swelling Integumentary: ABSENT: rash, wounds Neurological: ABSENT: abnormal gait, abnormal speech, confusion, dizziness, focal weakness, syncope Psychiatric: ABSENT: anxiety, depression, homidical ideation, suicidal ideation Endocrine: ABSENT: cold intolerance, heat intolerance, polydipsia, polyuria Hematologic/Lymphatic: ABSENT: easy bleeding, easy bruising Physical Exam Vital Signs: Temp Pulse Resp BP Pulse Ox 98.9 F 89 19 164/79 H 100 05/18/18 04:14 05/18/18 04:14 05/18/18 04:27 05/18/18 04:14 05/18/18 04:14 General appearance: PRESENT: no acute distress, cooperative, morbidly obese. ABSENT: disheveled Head exam: PRESENT: atraumatic, normocephalic Eye exam: PRESENT: conjunctiva pink, EOMI, PERRLA. ABSENT: scleral icterus Ear exam: PRESENT: normal external ear exam Mouth exam: PRESENT: moist, tongue midline Neck exam: ABSENT: carotid bruit, JVD, lymphadenopathy, thyromegaly Respiratory exam: PRESENT: clear to auscultation roxanna. ABSENT: rales, rhonchi, wheezes Cardiovascular exam: PRESENT: RRR. ABSENT: diastolic murmur, rubs, systolic murmur Pulses: PRESENT: normal dorsalis pedis pul GI/Abdominal exam: PRESENT: normal bowel sounds, soft. ABSENT: distended, guarding, mass, organolmegaly, rebound, tenderness Rectal exam: PRESENT: deferred Extremities exam: PRESENT: pedal edema, tenderness, +1 edema, other - Dry, 1 cm ulcer to the left foot. 4 x 8 cm irregular ulcer of the right leg without exudate Neurological exam: PRESENT: alert, awake, oriented to person, oriented to place , oriented to time, oriented to situation, CN II-XII grossly intact. ABSENT: motor sensory deficit Psychiatric exam: PRESENT: agitated Focused psych exam: PRESENT: paranoid, pressured speech Skin exam: PRESENT: dry, intact, warm. ABSENT: cyanosis, rash Results Impressions: Tibia/Fibula X-Ray 05/18/18 00:20 IMPRESSION: No acute fracture or dislocation. No radiographic evidence of osteomyelitis 2010 [email or web address]- All Rights Reserved Assessment & Plan - Diagnosis (1) Acute on chronic osteomyelitis Is this a current diagnosis for this admission?: Yes Plan: Left foot, complicated by diabetic diet and lifestyle noncompliance, education, Zosyn guided by last culture, surgical consult (2) Diabetic foot ulcer Qualifiers: Diabetic foot ulcer location: toe Diabetes mellitus type: type 2 Laterality: unspecified laterality Non-pressure ulcer stage: unspecified non- pressure ulcer stage Qualified Code(s): E11.621 - Type 2 diabetes mellitus with foot ulcer; L97.509 - Non-pressure chronic ulcer of other part of unspecified foot with unspecified severity; L97.509 - Non-pressure chronic ulcer of other part of unspecified foot with unspecified severity; L97.509 - Non -pressure chronic ulcer of other part of unspecified foot with unspecified severity; L97.509 - Non-pressure chronic ulcer of other part of unspecified foot with unspecified severity Is this a current diagnosis for this admission?: Yes Plan: Right leg without exudate, surgical consult (3) ANDIE on CPAP Is this a current diagnosis for this admission?: Yes Plan: BiPAP and incentive spirometry (4) History of pulmonary embolism Is this a current diagnosis for this admission?: Yes Plan: Stephen (5) Rhabdomyolysis Is this a current diagnosis for this admission?: Yes Plan: Secondary to fall, no renal involvement, gentle IV fluids, reevaluate total CK and chemistry - Time Time Spent: 50 to 70 Minutes - Inpatient Certification Medical Necessity: Need Close Monitoring Due to Risk of Patient Decompensation
[2018-05-18] MEDS ORDERED: CEFTAZIDIME INJ 1 GM VIAL IV PRN (06:38)
[2018-05-18] MEDS ORDERED: CEFTAZIDIME PENTAHYDRATE 2 GM in DEXTROSE 5%-WATER 100 ML IV ONE (06:45)
[2018-05-18] MEDS: METHADONE HCL 10 MG TABLET PO SCH ×2 (07:55→18:05)
[2018-05-18] MEDS: FUROSEMIDE 20 MG TABLET PO SCH (07:55)
[2018-05-18] MEDS: INSULIN REG, HUMAN 100 UNIT/ML 3 ML VIAL (PYX) SUBCUT SCH ×3 (08:02→16:32)
[2018-05-18] MEDS ORDERED: PIPERACILLIN/TAZOBACTAM 4.5 GM VIAL IV SCH (09:00)
[2018-05-18] MEDS ORDERED: MAGNESIUM OXIDE 400 MG TABLET PO SCH (10:00)
[2018-05-18] MEDS ORDERED: ASPIRIN 81 MG TABLET, CHEWABLE PO SCH (10:00)
[2018-05-18] MEDS ORDERED: METHADONE HCL 10 MG TABLET PO SCH ×2 (10:00→19:00)
[2018-05-18] MEDS: CHOLECALCIFEROL (D3) 400 UNIT TABLET PO SCH ×2 (10:10→18:05)
[2018-05-18] MEDS: ASCORBIC ACID 500 MG TABLET PO SCH (10:10)
[2018-05-18] MEDS: NORMAL SALINE 1000 ML 1,000 ML IV PRN ×2 (10:10→21:57)
[2018-05-18] MEDS: METOPROLOL TARTRATE 100 MG TABLET PO SCH ×2 (10:11→21:52)
[2018-05-18] MEDS: DOCUSATE SODIUM 100 MG CAPSULE PO SCH ×2 (10:12→18:11)
[2018-05-18] MEDS: APIXABAN 5 MG TABLET PO SCH ×2 (10:12→18:06)
[2018-05-18] MEDS: FLUTICASONE NASAL SPRAY 50 MCG/SPRY 120 SPRAY/16 GM NAREB SCH ×2 (10:12→21:51)
[2018-05-18] MEDS: TIOTROPIUM BROMIDE DPI 5 CAP/KIT (18 MCG/CAP) IH SCH (10:12)
[2018-05-18] MEDS: AMLODIPINE BESYLATE 5 MG TABLET PO SCH (10:19)
[2018-05-18] MEDS: EZETIMIBE 10 MG TABLET PO SCH (10:28)
[2018-05-18] MEDS: FOLIC ACID 1 MG TABLET PO SCH (10:28)
[2018-05-18] MEDS ORDERED: (PENDING PHARMACY ID) (Oxycodone Hcl [Oxycodone Hcl 10 Mg Tablet] 20 MG) PO PRN (13:56)
[2018-05-18] MEDS ORDERED: CEFTAZIDIME PENTAHYDRATE 2 GM in DEXTROSE 5%-WATER 100 ML IV SCH (14:00)
--- NOTE | 2018-05-18 14:14 | PDOC PROGRESS REPORT ---
Subjective Progress Note for:: 05/18/18 Subjective:: HEIDI ARSHAD is a 67 year old male with a past medical history of morbid obesity, venous stasis, left-sided osteomyelitis, insulin-dependent diabetes, opiate dependent chronic pain, obstructive sleep apnea, diabetes and pulmonary emboli on chronic anticoagulation with Eliquis. Diastolic heart failure, and anxiety. Patient complains [facility] in an unstable state. He presents with a slip and fall 2 days ago, unable to stand he remained on the floor approximately 12 hours. He complains of left- sided leg pain, imaging in the emergency room is unremarkable however he has acute on chronic venous stasis, cellulitis, and rhabdomyolysis. Patient has received approximately 7 weeks of IV Zosyn for his pseudomonal osteomyelitis. His PICC line was pulled by the SNF prior to his discharge to home. He claims that there was no arrangements for home care or any other assistance offered and that he was given a short time to collect his things before they discharged him from the SNF. Patient has tenderness and erythema above his area of chronic venous stasis dermatitis on the left leg consistent with a cellulitis. His right leg appears to be at baseline. Both feet the ulcers that had prior debridement on are scabbed over and appears to be healing nicely. Reason For Visit: RHABDOMYOLYSIS, LEG CELLULITIS DIABETES Physical Exam Vital Signs: Temp Pulse Resp BP Pulse Ox 97.9 F 95 18 162/84 H 100 05/18/18 08:23 05/18/18 08:23 05/18/18 08:23 05/18/18 08:23 05/18/18 08:59 Intake & Output 05/17/18 05/18/18 05/19/18 06:59 06:59 06:59 Intake Total 200 825 Balance 200 825 Weight 171.2 kg General appearance: PRESENT: no acute distress, well-developed, well-nourished Neck exam: ABSENT: carotid bruit, JVD, lymphadenopathy, thyromegaly Respiratory exam: PRESENT: clear to auscultation roxanna. ABSENT: rales, rhonchi, wheezes Cardiovascular exam: PRESENT: RRR. ABSENT: diastolic murmur, rubs, systolic murmur GI/Abdominal exam: PRESENT: normal bowel sounds, soft. ABSENT: distended, guarding, mass, organolmegaly, rebound, tenderness Extremities exam: PRESENT: other - Lymphedema with venous stasis both lower extremities Musculoskeletal exam: PRESENT: tenderness - Left lower extremity, other - Small dried eschars left foot over the first MTP joint and right foot over the fifth MTP joint Skin exam: PRESENT: erythema, other - Lymphedema with bilateral venous stasis. An area of erythema proximal to the venous stasis on the left lower extremity Results Laboratory Results: 05/18/18 05/18/18 06:29 12:45 Creatine Kinase 1097 H 1035 H Impressions: Tibia/Fibula X-Ray 05/18/18 00:20 IMPRESSION: No acute fracture or dislocation. No radiographic evidence of osteomyelitis 2010 [employer]- All Rights Reserved Assessment & Plan - Diagnosis (1) Cellulitis of left leg Is this a current diagnosis for this admission?: Yes Plan: Based on history patient has received 7 weeks for his osteomy-itis and this is likely been treated. The wounds on the feet look dry and healing. He does need follow-up with a automatic edger which she has not had since his surgery [address] patient on Bactrim for his cellulitis continue Zosyn at this point will consult podiatry. (2) Diabetes mellitus Qualifiers: Diabetes mellitus type: type 2 Diabetes mellitus manager terminal insulin use: unspecified mcfp insulin use status Diabetes mellitus complication status : without complication Qualified Code(s): E11.9 - Type 2 diabetes mellitus without complications Is this a current diagnosis for this admission?: Yes Plan: Resume patient's outpatient insulin and metformin. Hemoglobin A1c 7.5. Additionally have sliding scale coverage (3) Hypertension Qualifiers: Hypertension type: unspecified Qualified Code(s): I10 - Essential (primary ) hypertension Is this a current diagnosis for this admission?: Yes Plan: Mild systolic hypertension monitor no change in medications at this time. (4) Rhabdomyolysis Is this a current diagnosis for this admission?: Yes Plan: CPK approximately 8000. Trending downward will repeat CK in morning IV hydration at 100 (5) COPD (chronic obstructive pulmonary disease) Qualifiers: Emphysema type: unspecified Is this a current diagnosis for this admission?: Yes Plan: Nebulizing treatments and continue outpatient medications Spiriva. (6) Chronic pain Is this a current diagnosis for this admission?: Yes Plan: Continue patient's methadone and oxycodone. Patient also on muscle relaxer Robaxin counseled on sedation and interaction but he has been taking this combination for some time without difficulty. (7) Acute on chronic osteomyelitis Is this a current diagnosis for this admission?: Yes Plan: Patient had osteomyelitis identified in early March. He was treated with a recommended 6-8 weeks of IV antibiotics. His culture from Dr. Pham's office grew Pseudomonas. He underwent debridement of his right foot in April. A PICC line was placed and he was treated with approximately 7 weeks of appropriate antibiotic coverage. The PICC line was removed by the SNF prior to his discharge. His feet have callus and eschar formation but no drainage and appear to be healing well. Will consult Dr. Pham for follow-up evaluation. - Time Time Spent with patient: 25-34 minutes
--- NOTE | 2018-05-18 14:26 | RADIOLOGY REPORT (SQ) ---
EXAM DESCRIPTION: FOOT BILATERAL 3 VIEWS COMPLETED DATE/TIME: 05/18/2018 1:37 pm REASON FOR STUDY: osteomyelitis COMPARISON: 02/07/2018. FINDINGS: Three views left foot: Osteopenic without evidence of displaced fracture or bone lesion. Soft tissue swelling and vascular calcification. Three views right foot: Osteopenic. Presumed postoperative changes in the distal 5th metatarsal, pa rtial resection as before. No better defined bones here with increasing calcification. No acute fra cture or bone lesion. Soft tissue swelling and vascular calcifications. TECHNICAL DOCUMENTATION: JOB ID: [id number] Reading location - IP/workstation name: [email or web address]
[2018-05-18] MEDS: METFORMIN HCL 850 MG TABLET PO SCH (16:32)
[2018-05-18] MEDS ORDERED: INSULIN REG, HUMAN 100 UNIT/ML 3 ML VIAL (PYX) SUBCUT SCH (17:00)
[2018-05-18] MEDS ORDERED: FLUTICASONE NASAL SPRAY 50 MCG/SPRY 120 SPRAY/16 GM NASL SCH (18:00)
[2018-05-18] MEDS ORDERED: [UNRECOGNIZED DRUG - OTHER] TP SCH (18:00)
[2018-05-18] MEDS ORDERED: POTASSIUM GLUCONATE 600 MG PO SCH (18:00)
[2018-05-18] MEDS ORDERED: APIXABAN 5 MG TABLET PO SCH (18:00)
[2018-05-18] MEDS ORDERED: CHOLECALCIFEROL (D3) 400 UNIT TABLET PO SCH (18:00)
[2018-05-18] MEDS: LANSOPRAZOLE 30 MG TAB.RAP.DR PO SCH (18:05)
[2018-05-18] MEDS: MAGNESIUM OXIDE 400 MG TABLET PO SCH (18:06)
--- NOTE | 2018-05-18 18:11 | PDOC CONSULTATION ---
Consultation Consult Date: 05/18/18 Consult reason:: Chronic venous insufficiency, right venous stasis ulcer, diabetic foot ulcers, history of osteomyelitis. History of Present Illness Admission Date/PCP: 05/18/18 02:10 MOY MYLES DO History of Present Illness: HEIDI ARSHAD is a 67 year old male seen at the request of the hospitalist service. The patient has a right lateral plantar foot ulcer, as well as a left distal medial plantar foot ulcer. The patient has had these ulcers for many months now. The patient is currently being treated for osteomyelitis of the right fifth metatarsal. The patient follows with the wound clinic. The patient is a diabetic. The patient reports falling on his left leg. He had a difficult time getting up , and laid in the floor for an undetermined amount of time. In the ER he was found to have elevation of his CPK. Today, he reports pain in his left leg with accompanying redness. The patient denies chest pain, fevers, chills, nausea, vomiting, melena, hematochezia, dizziness, orthostasis, blurry vision, shortness of breath, headache, fatigue, malaise. Past Medical History Cardiac Medical History: Reports: Congestive Heart Failure, Coronary Artery Disease - HIGH CHOLESTEROL, DVT, Myocardial Infarction - "COUPLE OF THEM", Hyperlipidema, Hypertension, Pulmonary Embolism Pulmonary Medical History: Reports: Chronic Obstructive Pulmonary Disease (COPD ) - MILD, ON 3LNC "MOST OF THE TIME", Sleep Apnea Denies: Asthma, Bronchitis, Pneumonia Neurological Medical History: Denies: Seizures Endocrine Medical History: Reports: Diabetes Mellitus Type 2, Obesity GI Medical History: Reports: Gastroesophageal Reflux Disease Musculoskeltal Medical History: Reports: Arthritis - CHRONIC PAIN MANAGEMENT FOR OSTEOARTHRITIS Psychiatric Medical History: Reports: Depression Hematology: Denies: Anemia Past Surgical History Past Surgical History: Reports: Appendectomy, Cardiac Catheterization, Pacemaker , Other - Wound debridement of the right foot Social History Lives with: Alone Smoking Status: Never Smoker Frequency of Alcohol Use: None Hx Recreational Drug Use: No Drugs: None Hx Prescription Drug Abuse: No - Advance Directive Resuscitation Status: Full Code Family History Family History: Hypertension Parental Family History Reviewed: Yes Children Family History Reviewed: Yes Sibling(s) Family History Reviewed.: Yes Medication/Allergy Home Medications: Amlodipine Besylate [Norvasc 10 mg Tablet] 10 mg PO QHS 05/18/18 Apixaban [Eliquis 5 mg Tablet] 5 mg PO BID 05/18/18 Ascorbic Acid [C-1000] 1,000 mg PO QHS 05/18/18 Aspirin [Aspirin EC] 81 mg PO DAILY 05/18/18 Cholecalciferol (Vitamin D3) [Vitamin D3 400 Unit Tablet] 400 mg PO BID Clobetasol Propionate/Emoll [Clobetasol Emulsion 0.05% Foam] 50 gm TP BID Clonazepam [Klonopin 1 mg Tablet] 1 mg PO DAILYP PRN 05/18/18 Ezetimibe [Zetia 10 mg Tablet] 10 mg PO DAILY 05/18/18 Ferrous Sulfate [Feosol 325 mg Tablet] 325 mg PO QHS 05/18/18 Fluticasone Propionate [Flonase Nasal Pine [place] 50 Mcg/Pine Apple 16 gm] 1 spray NASL BID 05/18/18 Folic Acid [Folvite 1 mg Tablet] 1 mg PO QHS 05/18/18 Furosemide [Lasix 20 mg Tablet] 20 mg PO QAM 05/18/18 Gabapentin [Neurontin 100 mg Capsule] 200 mg PO QHS 05/18/18 Insulin Glargine,Hum.rec.anlog [Lantus Insulin 100 Unit/1 ml 10 ml] 88 units SQ QHS 05/18/18 Insulin Regular, Human [Humulin R (Reg) Insulin 100 unit/mL] 48 units SQ MEALS 05/18/18 Magnesium Oxide [Mag-Ox 400 mg Tablet] 400 mg PO BID 05/18/18 Metformin HCl [Glucophage] 850 mg PO AC 05/18/18 Methadone HCl [Dolophine 10 mg Tablet] 10 mg PO Q12@0700,1900 05/18/18 Methocarbamol [Robaxin 750 mg Tablet] 750 mg PO BID 05/18/18 Metoprolol Tartrate [Lopressor 100 mg Tablet] 100 mg PO Q12 05/18/18 Multivitamin,Stress Formula [Stress Formula] 1 tab PO DAILY 05/18/18 Omeprazole 40 mg PO BID 05/18/18 Oxycodone HCl [Oxycodone HCl 10 MG Tablet] 20 mg PO QIDP PRN 05/18/18 Potassium Gluconate [Potassium] 600 mg PO BID 05/18/18 Promethazine HCl [Phenergan 25 mg Tablet] 25 mg PO TIDP PRN 05/18/18 Testosterone Cypionate [Depo-Testosterone] 200 mg IM [id number] 05/18/18 Tiotropium [place] [Spiriva Handihaler 18 mcg/dose (30 Dose)] 1 cap IH DAILY 05/26 Allergies/Adverse Reactions: Iodinated Contrast- Oral and IV Dye [IV Dye, Iodine Containing] Allergy (Severe , Verified 01/17/18 17:12) vancomycin [Vancomycin] Allergy (Severe, Verified 01/17/18 17:12) Pruritis levofloxacin [From Levaquin] Allergy (Unknown, Verified 01/17/18 17:12) doxycycline [Doxycycline] Allergy (Verified 01/17/18 17:12) minocycline [Minocycline] Allergy (Verified 01/17/18 17:12) simvastatin [Simvastatin] Allergy (Verified 01/17/18 17:12) Review of Systems Constitutional: ABSENT: anorexia, chills, fatigue Eyes: ABSENT: visual disturbances Ears: ABSENT: hearing changes Nose, Mouth, and Throat: ABSENT: sore throat Cardiovascular: ABSENT: chest pain Respiratory: ABSENT: cough, dyspnea Gastrointestinal: ABSENT: abdominal pain, bloating, heartburn, hematochezia, melena, nausea, vomiting Musculoskeletal: ABSENT: back pain Integumentary: PRESENT: other - Redness to the left lower leg. ABSENT: pruritus Neurological: ABSENT: confusion, convulsions, dizziness Psychiatric: ABSENT: anxiety, depression Endocrine: ABSENT: cold intolerance, heat intolerance Hematologic/Lymphatic: PRESENT: easy bleeding, easy bruising Physical Exam Vital Signs: Temp Pulse Resp BP Pulse Ox 98.1 F 74 16 157/71 H 95 05/18/18 12:32 05/18/18 16:40 05/18/18 16:40 05/18/18 12:32 05/18/18 16:40 Intake & Output 05/17/18 05/18/18 05/19/18 06:59 06:59 06:59 Intake Total 200 925 Balance 200 925 Weight 171.2 kg General appearance: PRESENT: no acute distress, cooperative Head exam: PRESENT: atraumatic, normocephalic Eye exam: PRESENT: EOMI, PERRLA. ABSENT: scleral icterus Mouth exam: PRESENT: moist, neck supple Neck exam: ABSENT: meningismus, tenderness, thyromegaly, tracheal deviation Respiratory exam: PRESENT: clear to auscultation roxanna, unlabored. ABSENT: chest wall tenderness, wheezes Cardiovascular exam: PRESENT: RRR Pulses: PRESENT: normal radial pulses GI/Abdominal exam: PRESENT: soft. ABSENT: distended, firm, guarding, rigid, tenderness Rectal exam: PRESENT: deferred Extremities exam: PRESENT: +2 edema, other - Gaiter sign. Neurological exam: PRESENT: alert, awake, oriented to person, oriented to place , oriented to time, oriented to situation, CN II-XII grossly intact Psychiatric exam: ABSENT: agitated, anxious, depressed Focused psych exam: ABSENT: delusional Skin exam: PRESENT: erythema - Left lower extremity. ABSENT: cyanosis Additional comments: Ulcer to the plantar right distal, lateral foot. No erythema or purulence present. Ulcer to the plantar left distal, medial foot. No purulence or erythema. Results Laboratory Results: 05/18/18 05/18/18 05/18/18 06:29 12:45 15:03 Creatine Kinase 1097 H 1035 H 969 H Impressions: Tibia/Fibula X-Ray 05/18/18 00:20 IMPRESSION: No acute fracture or dislocation. No radiographic evidence of osteomyelitis 2010 [email or web address]- All Rights Reserved Assessment & Plan - Diagnosis (1) Chronic venous insufficiency Is this a current diagnosis for this admission?: Yes (2) Venous ulcer of right leg Is this a current diagnosis for this admission?: Yes (3) Osteomyelitis due to type 2 diabetes mellitus Is this a current diagnosis for this admission?: Yes - Plan Summary Plan Summary: This is a 67-year-old diabetic male. He has known osteomyelitis of the right fifth metatarsal head. The patient is currently being treated for this through the wound care clinic. The wound care clinic has been treating his diabetic foot ulcers as well. Currently, I cannot identify any erythema, purulence, or evidence of gangrene. The patient is not interested in surgical intervention at this time. I have recommended that he wear compression garments from his toes to his knees. I have also recommended Aquacel silver dressings for his diabetic foot ulcer as well as his right venous stasis ulcer. I will see the patient again on an as-needed basis. Please contact me with any questions or concerns.
[2018-05-18] MEDS: INSULIN GLARGINE,HUM.REC.ANLOG 1,000 UNIT/10 ML UNIT SUBCUT SCH (21:50)
[2018-05-18] MEDS: FERROUS SULFATE 325 MG TABLET PO SCH (21:51)
[2018-05-18] MEDS: METHOCARBAMOL 750 MG TABLET PO SCH (21:53)
[2018-05-18] MEDS: SULFAMETHOXAZOLE/TRIMETHOPRIM 800-160 MG TABLET PO SCH (21:53)
[2018-05-18] MEDS: GABAPENTIN 100 MG CAPSULE PO SCH (21:54)
[2018-05-18] MEDS ORDERED: (PENDING PHARMACY ID) (Ascorbic Acid [C-1000] 1,000 MG) PO SCH (22:00)
[2018-05-18] MEDS ORDERED: INSULIN GLARGINE,HUM.REC.ANLOG 1,000 UNIT/10 ML UNIT SUBCUT SCH ×2 (22:00)
[2018-05-18] MEDS ORDERED: GABAPENTIN 100 MG CAPSULE PO SCH (22:00)
[2018-05-18] MEDS ORDERED: METOPROLOL TARTRATE 100 MG TABLET PO SCH (22:00)
[2018-05-18] MEDS ORDERED: FOLIC ACID 1 MG TABLET PO SCH (22:00)
[2018-05-18] MEDS ORDERED: AMLODIPINE BESYLATE 10 MG TABLET PO SCH (22:00)
[2018-05-19 04:30] LABS: ABSOLUTE EOSINOPHILS # (AUTO) 0.2 10^3/uL (0.0-0.6); ABSOLUTE LYMPHOCYTES (AUTO) 1.1 10^3/uL (0.5-4.7); ABSOLUTE MONOCYTES (AUTO) 0.8 10^3/uL (0.1-1.4); ABSOLUTE NEUT (AUTO) 6.5 10^3/uL (1.7-8.2); BASOPHILS % (AUTO) 0.3 % (0-2); EOSINOPHILS % (AUTO) 2.6 % (0-6); HEMATOCRIT 44.8 % (37.9-51.0); HEMOGLOBIN 15.1 g/dL (13.5-17.0); MEAN CORPUSCULAR HGB CONC 33.8 g/dL (32.0-36.0); MEAN CORPUSCULAR VOLUME 86 fl (80-97); MONOCYTES % (AUTO) 9.3 % (3-13); PLATELET COUNT 255 10^3/uL (150-450); RED BLOOD COUNT 5.22 10^6/uL (4.35-5.55); RED CELL DISTRIBUTION WIDTH 16.3 % (11.5-14.0); SEGMENTED NEUTROPHILS % (AUTO) 74.8 % (42-78); TOTAL CELLS COUNTED % (AUTO) 100 %; WHITE BLOOD COUNT 8.7 10^3/uL (4.0-10.5)
[2018-05-19 04:43] LABS: ANION GAP 10 (5-19); BLOOD UREA NITROGEN 22 mg/dL (7-20); CALCIUM 8.8 mg/dL (8.4-10.2); CARBON DIOXIDE 27 mmol/L (22-30); CHLORIDE 100 mmol/L (98-107); GLUCOSE 154 mg/dL (75-110); POTASSIUM 4.7 mmol/L (3.6-5.0); SODIUM 137.4 mmol/L (137-145)
[2018-05-19] MEDS: PIPERACILLIN SODIUM/TAZOBACTAM 4.5 GM in NORMAL SALINE 100 ML IV SCH ×2 (05:26→11:34)
[2018-05-19] MEDS: METHADONE HCL 10 MG TABLET PO SCH ×2 (07:56→19:27)
[2018-05-19] MEDS: METFORMIN HCL 850 MG TABLET PO SCH ×3 (07:56→17:34)
[2018-05-19] MEDS: INSULIN REG, HUMAN 100 UNIT/ML 3 ML VIAL (PYX) SUBCUT SCH ×3 (07:57→17:32)
[2018-05-19] MEDS ORDERED: FUROSEMIDE 20 MG TABLET PO SCH (08:00)
[2018-05-19] MEDS ORDERED: EZETIMIBE 10 MG TABLET PO SCH (10:00)
[2018-05-19] MEDS ORDERED: TIOTROPIUM BROMIDE DPI 5 CAP/KIT (18 MCG/CAP) IH SCH (10:00)
[2018-05-19] MEDS ORDERED: MULTIVITAMIN STRESS FORMULA PO SCH (10:00)
[2018-05-19] MEDS: FLUTICASONE NASAL SPRAY 50 MCG/SPRY 120 SPRAY/16 GM NAREB SCH ×2 (10:28→21:31)
[2018-05-19] MEDS: ASPIRIN 81 MG TABLET, ENT COATED PO SCH (10:28)
[2018-05-19] MEDS: APIXABAN 5 MG TABLET PO SCH ×2 (10:28→21:24)
[2018-05-19] MEDS: FUROSEMIDE 20 MG TABLET PO SCH (10:28)
[2018-05-19] MEDS: DOCUSATE SODIUM 100 MG CAPSULE PO SCH ×2 (10:28→17:31)
[2018-05-19] MEDS: METOPROLOL TARTRATE 100 MG TABLET PO SCH ×2 (10:29→21:25)
[2018-05-19] MEDS: MAGNESIUM OXIDE 400 MG TABLET PO SCH ×2 (10:29→17:32)
[2018-05-19] MEDS: FOLIC ACID 1 MG TABLET PO SCH (10:29)
[2018-05-19] MEDS: LANSOPRAZOLE 30 MG TAB.RAP.DR PO SCH ×2 (10:29→17:32)
[2018-05-19] MEDS: AMLODIPINE BESYLATE 5 MG TABLET PO SCH (10:29)
[2018-05-19] MEDS: ASCORBIC ACID 500 MG TABLET PO SCH (10:30)
[2018-05-19] MEDS: CHOLECALCIFEROL (D3) 400 UNIT TABLET PO SCH ×2 (10:30→17:32)
[2018-05-19] MEDS: MULTIVIT-STRESS FORMULA/ZINC TABLET PO SCH (10:30)
[2018-05-19] MEDS: TIOTROPIUM BROMIDE DPI 5 CAP/KIT (18 MCG/CAP) IH SCH (10:30)
[2018-05-19] MEDS: SULFAMETHOXAZOLE/TRIMETHOPRIM 800-160 MG TABLET PO SCH ×2 (10:30→21:25)
[2018-05-19] MEDS: EZETIMIBE 10 MG TABLET PO SCH (10:31)
[2018-05-19] MEDS: METHOCARBAMOL 750 MG TABLET PO SCH ×2 (10:31→21:24)
[2018-05-19] MEDS: NORMAL SALINE 1000 ML 1,000 ML IV PRN ×2 (10:35→21:30)
--- NOTE | 2018-05-19 12:29 | PDOC PROGRESS REPORT ---
Subjective Progress Note for:: 05/19/18 Subjective:: HEIDI ARSHAD is a 67 year old male with a past medical history of morbid obesity, venous stasis, left-sided osteomyelitis, insulin-dependent diabetes, opiate dependent chronic pain, obstructive sleep apnea, diabetes and pulmonary emboli on chronic anticoagulation with Eliquis. Diastolic heart failure, and anxiety. Patient complains he was discharged from nursing home 4 weeks ago in an unstable state. He presents with a slip and fall 2 days ago, unable to stand he remained on the floor approximately 12 hours. He complains of left- sided leg pain, imaging in the emergency room is unremarkable however he has acute on chronic venous stasis, cellulitis, and rhabdomyolysis. Patient has received approximately 7 weeks of IV Zosyn for his pseudomonal osteomyelitis. His PICC line was pulled by the SNF prior to his discharge to home. He claims that there was no arrangements for home care or any other assistance offered and that he was given a short time to collect his things before they discharged him from the SNF. Patient has tenderness and erythema above his area of chronic venous stasis dermatitis on the left leg consistent with a cellulitis showing improvement from yesterday's demarcation line.. His right leg appears to be at baseline. Both feet the ulcers that had prior debridement on are scabbed over and appears to be healing nicely. No new complaints. Tolerating meals Reason For Visit: RHABDOMYOLYSIS, LEG CELLULITIS DIABETES Physical Exam Vital Signs: Temp Pulse Resp BP Pulse Ox 98.5 F 80 20 159/87 H 95 05/19/18 08:28 05/19/18 08:28 05/19/18 08:28 05/19/18 08:28 05/19/18 08:28 Intake & Output 05/18/18 05/19/18 05/20/18 06:59 06:59 06:59 Intake Total 200 3675 1000 Balance 200 3675 1000 Weight 171.2 kg 173.4 kg General appearance: PRESENT: no acute distress, well-developed, well-nourished Neck exam: ABSENT: carotid bruit, JVD, lymphadenopathy, thyromegaly Respiratory exam: PRESENT: clear to auscultation roxanna. ABSENT: rales, rhonchi, wheezes Cardiovascular exam: PRESENT: RRR. ABSENT: diastolic murmur, rubs, systolic murmur GI/Abdominal exam: PRESENT: normal bowel sounds, soft. ABSENT: distended, guarding, mass, organolmegaly, rebound, tenderness Extremities exam: PRESENT: tenderness - Tenderness in the left leg in the area of cellulitis, other - Bilateral lymphedema Skin exam: PRESENT: other - Bilateral lower extremity lymphedema with chronic venous stasis changes. Erythema extending from just below the knee into the area of lymphedema. Left leg Results Laboratory Results: 05/19/18 03:27 05/19/18 03:27 05/19/18 05/19/18 03:27 03:27 WBC 8.7 RBC 5.22 Hgb 15.1 Hct 44.8 MCV 86 MCH 29.0 MCHC 33.8 RDW 16.3 H Plt Count 255 Seg Neutrophils % 74.8 Lymphocytes % 13.0 Monocytes % 9.3 Eosinophils % 2.6 Basophils % 0.3 Absolute Neutrophils 6.5 Absolute Lymphocytes 1.1 Absolute Monocytes 0.8 Absolute Eosinophils 0.2 Absolute Basophils 0.0 Sodium 137.4 Potassium 4.7 Chloride 100 Carbon Dioxide 27 Anion Gap 10 BUN 22 H Creatinine 1.13 Est GFR ( Amer) > 60 Est GFR (Non-Af Amer) > 60 Glucose 154 H Calcium 8.8 05/18/18 05/18/18 05/18/18 06:29 12:45 15:03 Creatine Kinase 1097 H 1035 H 969 H 05/18/18 18:43 Creatine Kinase 805 H Impressions: Tibia/Fibula X-Ray 05/18/18 00:20 IMPRESSION: No acute fracture or dislocation. No radiographic evidence of osteomyelitis 2010 [employer]- All Rights Reserved Assessment & Plan - Diagnosis (1) Cellulitis of left leg Is this a current diagnosis for this admission?: Yes Plan: Based on history patient has received 7 weeks for his osteomy-itis and this is likely been treated. The wounds on the feet look dry and healing. He does need follow-up with a buddhist monk which she has not had since his surgery [address]. [address] patient on Bactrim for his cellulitis discontinue Sia buddhist monk out of town. Patient will follow up with either the [place] where he is followed for podiatric needs or his local buddhist monk Dr. Pham. Arrange home health prior to discharge (2) Diabetes mellitus Qualifiers: Diabetes mellitus type: type 2 Diabetes mellitus fpc insulin use: unspecified intermediate frame tender insulin use status Diabetes mellitus complication status : without complication Qualified Code(s): E11.9 - Type 2 diabetes mellitus without complications Is this a current diagnosis for this admission?: Yes Plan: Resume patient's outpatient insulin and metformin. Hemoglobin A1c 7.5. Additionally have sliding scale coverage (3) Hypertension Qualifiers: Hypertension type: unspecified Qualified Code(s): I10 - Essential (primary ) hypertension Is this a current diagnosis for this admission?: Yes Plan: Mild systolic hypertension continue to monitor no change in medications. (4) Rhabdomyolysis Is this a current diagnosis for this admission?: Yes Plan: CK 805 trending down no further repeats required. (5) COPD (chronic obstructive pulmonary disease) Qualifiers: Emphysema type: unspecified Is this a current diagnosis for this admission?: Yes Plan: Nebulizing treatments and continue outpatient medications Spiriva. (6) Chronic pain Is this a current diagnosis for this admission?: Yes Plan: Continue patient's methadone and oxycodone. Patient also on muscle relaxer Robaxin counseled on sedation and interaction but he has been taking this combination for some time without difficulty. (7) Acute on chronic osteomyelitis Is this a current diagnosis for this admission?: Yes Plan: Clinically appears resolved. Patient had 7 weeks of IV antibiotics which should be more than adequate. [facility] buddhist monk - Time Time Spent with patient: 15-24 minutes
[2018-05-19] MEDS: IPRATROPIUM/ALBUTEROL 0.5-2.5 MG/3 ML AMPUL NEB PRN (16:09)
[2018-05-19] MEDS: INSULIN REG, HUMAN 100 UNIT/ML 3 ML VIAL (PYX) SUBCUT PRN (17:34)
[2018-05-19] MEDS: FERROUS SULFATE 325 MG TABLET PO SCH (21:24)
[2018-05-19] MEDS: GABAPENTIN 100 MG CAPSULE PO SCH (21:25)
[2018-05-19] MEDS: INSULIN GLARGINE,HUM.REC.ANLOG 1,000 UNIT/10 ML UNIT SUBCUT SCH (21:25)
[2018-05-20 05:35] LABS: ANION GAP 10 (5-19); BLOOD UREA NITROGEN 20 mg/dL (7-20); CALCIUM 8.7 mg/dL (8.4-10.2); CARBON DIOXIDE 25 mmol/L (22-30); CHLORIDE 101 mmol/L (98-107); GLUCOSE 115 mg/dL (75-110); POTASSIUM 4.5 mmol/L (3.6-5.0); SODIUM 135.6 mmol/L (137-145)
[2018-05-20] MEDS: NORMAL SALINE 1000 ML 1,000 ML IV PRN ×2 (06:19→16:03)
[2018-05-20] MEDS: METHADONE HCL 10 MG TABLET PO SCH ×2 (06:19→18:12)
[2018-05-20] MEDS: INSULIN REG, HUMAN 100 UNIT/ML 3 ML VIAL (PYX) SUBCUT SCH ×3 (07:25→16:10)
[2018-05-20] MEDS: FUROSEMIDE 20 MG TABLET PO SCH (07:26)
[2018-05-20] MEDS: METFORMIN HCL 850 MG TABLET PO SCH ×3 (07:26→16:02)
--- NOTE | 2018-05-20 10:37 | PDOC DISCHARGE SUMMARY ---
General - Admit/Disc Date/PCP Admission Date/Primary Care Provider: 05/18/18 02:10 MOY MYLES DO Discharge Date: 05/20/18 - Discharge Diagnosis (1) Cellulitis of left leg Is this a current diagnosis for this admission?: Yes (2) Diabetes mellitus Is this a current diagnosis for this admission?: Yes Summary: Hemoglobin A1c 7.5 (3) Hypertension Is this a current diagnosis for this admission?: Yes (4) Rhabdomyolysis Is this a current diagnosis for this admission?: Yes (5) COPD (chronic obstructive pulmonary disease) Is this a current diagnosis for this admission?: Yes (6) Chronic pain Is this a current diagnosis for this admission?: Yes (7) Acute on chronic osteomyelitis Is this a current diagnosis for this admission?: Yes - Additional Information Resuscitation Status: Full Code Discharge Diet: Cardiac, Diabetic Discharge Activity: Activity As Tolerated, Keep Legs Elevated, Slowly Increase Activity Prescriptions: Sulfamethoxazole/Trimethoprim [Septra-Ds 800-160 mg Tablet] 1 tab PO Q12 #24 tablet Home Medications: Amlodipine Besylate [Norvasc 10 mg Tablet] 10 mg PO QHS 05/18/18 Apixaban [Eliquis 5 mg Tablet] 5 mg PO BID 05/18/18 Ascorbic Acid [C-1000] 1,000 mg PO QHS 05/18/18 Aspirin [Aspirin EC] 81 mg PO DAILY 05/18/18 Cholecalciferol (Vitamin D3) [Vitamin D3 400 Unit Tablet] 400 mg PO BID Clobetasol Propionate/Emoll [Clobetasol Emulsion 0.05% Foam] 50 gm TP BID Clonazepam [Klonopin 1 mg Tablet] 1 mg PO DAILYP PRN 05/18/18 Ezetimibe [Zetia 10 mg Tablet] 10 mg PO DAILY 05/18/18 Fluticasone Propionate [Flonase Nasal Gardner 50 Mcg/Gardner 16 gm] 1 spray NASL BID 05/18/18 Folic Acid [Folvite 1 mg Tablet] 1 mg PO QHS 05/18/18 Furosemide [Lasix 20 mg Tablet] 20 mg PO QAM 05/18/18 Gabapentin [Neurontin 100 mg Capsule] 200 mg PO QHS 05/18/18 Insulin Glargine,Hum.rec.anlog [Lantus Insulin 100 Unit/1 ml 10 ml] 88 units SQ QHS 05/18/18 Insulin Regular, Human [Humulin R (Reg) Insulin 100 unit/mL] 48 units SQ MEALS 05/18/18 Magnesium Oxide [Mag-Ox 400 mg Tablet] 400 mg PO BID 05/18/18 Metformin HCl [Glucophage] 850 mg PO AC 05/18/18 Methadone HCl [Dolophine 10 mg Tablet] 10 mg PO Q12@0700,1900 05/18/18 Methocarbamol [Robaxin 750 mg Tablet] 750 mg PO BID 05/18/18 Metoprolol Tartrate [Lopressor 100 mg Tablet] 100 mg PO Q12 05/18/18 Multivitamin,Stress Formula [Stress Formula] 1 tab PO DAILY 05/18/18 Omeprazole 40 mg PO BID 05/18/18 Oxycodone HCl [Oxycodone HCl 10 MG Tablet] 20 mg PO QIDP PRN 05/18/18 Potassium Gluconate [Potassium] 600 mg PO BID 05/18/18 Promethazine HCl [Phenergan 25 mg Tablet] 25 mg PO TIDP PRN 05/18/18 Testosterone Cypionate [Depo-Testosterone] 200 mg IM [id number] 05/18/18 Tiotropium [place] [Spiriva Handihaler 18 mcg/dose (30 Dose)] 1 cap IH DAILY 05/26 Docusate Sodium [Colace 100 mg Capsule] 100 mg PO BID capsule 05/20/18 Sulfamethoxazole/Trimethoprim [Septra-Ds 800-160 mg Tablet] 1 tab PO Q12 #24 tablet 05/20/18 History of Present Illness Patient complains of: Pain left leg History of Present Illness: ROSI ARSHAD is a 67 year old male with a past medical history of morbid obesity, venous stasis, left-sided osteomyelitis, insulin-dependent diabetes, opiate dependent chronic pain, obstructive sleep apnea, diabetes and pulmonary emboli on chronic anticoagulation with Eliquis. Diastolic heart failure, and anxiety. Patient complains he was discharged [facility] ago in an unstable state. He presents with a slip and fall 2 days ago, unable to stand he remained on the floor approximately 12 hours. He complains of left- sided leg pain, imaging in the emergency room is unremarkable however he has acute on chronic venous stasis, cellulitis, and rhabdomyolysis. Hospital Course Hospital Course: Patient was admitted to medical bed he had a history of osteomyelitis of the feet and was treated with 7 weeks of Zosyn IV prior to being discharged from the SNF. Patient apparently stated that he did not have home health arranged at discharge from the SNF and fell in the home and was unable to get back up. He has chronic lymphedema of both lower extremities. The ulcers which were treated by podiatry in the past had healed over for the most part there is small tiny eschars no drainage. His left leg however had some erythema extending above the margin of the venous stasis to just below the knee. The skin was tender and it appeared he had a secondary infection and not just lymphedema. He was placed on IV Zosyn initially as he is intolerant to doxycycline and vancomycin he was placed on p.o. Bactrim. The cellulitis responded well after reviewing his medical record and confirmed he had adequate treatment for his osteomyelitis Zosyn was discontinued. Arrangements were made for home health to be initiated and patient was discharged on p.o. Bactrim. The patient is followed at the [facility] and will make a follow-up appointment in 7-10 days. He is also seen by local manager scientific Dr. Pham as well as the [facility]. Attempt to consult Dr. Pham was made however he was out of town and the patient said he would follow-up at the [facility]. Physical Exam Vital Signs: Temp Pulse Resp BP Pulse Ox 97.8 F 82 18 144/73 H 98 05/20/18 08:52 05/20/18 08:52 05/20/18 08:52 05/20/18 08:52 05/20/18 08:52 Intake & Output 05/19/18 05/20/18 05/21/18 06:59 06:59 06:59 Intake Total 3675 3990 654 Balance 3675 3990 654 Weight 173.4 kg 175.7 kg General appearance: PRESENT: no acute distress, well-developed, well-nourished Neck exam: ABSENT: carotid bruit, JVD, lymphadenopathy, thyromegaly Respiratory exam: PRESENT: clear to auscultation roxanna. ABSENT: rales, rhonchi, wheezes Cardiovascular exam: PRESENT: RRR. ABSENT: diastolic murmur, rubs, systolic murmur GI/Abdominal exam: PRESENT: normal bowel sounds, soft. ABSENT: distended, guarding, mass, organolmegaly, rebound, tenderness Extremities exam: PRESENT: tenderness - Left leg tenderness in the area of erythema cellulitis, other - Bilateral venous stasis dermatitis. ABSENT: joint swelling Results Laboratory Results: 05/19/18 03:27 05/20/18 04:29 05/20/18 04:29 Sodium 135.6 L Potassium 4.5 Chloride 101 Carbon Dioxide 25 Anion Gap 10 BUN 20 Creatinine 0.93 Est GFR ( Amer) > 60 Est GFR (Non-Af Amer) > 60 Glucose 115 H Calcium 8.7 05/18/18 05/18/18 05/18/18 06:29 12:45 15:03 Creatine Kinase 1097 H 1035 H 969 H 05/18/18 18:43 Creatine Kinase 805 H Impressions: Tibia/Fibula X-Ray 05/18/18 00:20 IMPRESSION: No acute fracture or dislocation. No radiographic evidence of osteomyelitis 2010 [employer]- All Rights Reserved Qualifiers - * PATIENT BEING DISCHARGED WITH ANY OF THE FOLLOWING DIAGNOSIS: No Plan Time Spent: Greater than 30 Minutes
[2018-05-20] MEDS: LANSOPRAZOLE 30 MG TAB.RAP.DR PO SCH ×2 (10:41→18:12)
[2018-05-20] MEDS: DOCUSATE SODIUM 100 MG CAPSULE PO SCH ×3 (10:43→18:10)
[2018-05-20] MEDS: APIXABAN 5 MG TABLET PO SCH ×2 (10:44→21:39)
[2018-05-20] MEDS: SULFAMETHOXAZOLE/TRIMETHOPRIM 800-160 MG TABLET PO SCH ×2 (10:44→21:38)
[2018-05-20] MEDS: MULTIVIT-STRESS FORMULA/ZINC TABLET PO SCH (10:44)
[2018-05-20] MEDS: METOPROLOL TARTRATE 100 MG TABLET PO SCH ×2 (10:44→21:38)
[2018-05-20] MEDS: ASCORBIC ACID 500 MG TABLET PO SCH (10:44)
[2018-05-20] MEDS: AMLODIPINE BESYLATE 5 MG TABLET PO SCH (10:44)
[2018-05-20] MEDS: FOLIC ACID 1 MG TABLET PO SCH (10:44)
[2018-05-20] MEDS: MAGNESIUM OXIDE 400 MG TABLET PO SCH ×2 (10:44→18:12)
[2018-05-20] MEDS: ASPIRIN 81 MG TABLET, ENT COATED PO SCH (10:44)
[2018-05-20] MEDS: TIOTROPIUM BROMIDE DPI 5 CAP/KIT (18 MCG/CAP) IH SCH (10:45)
[2018-05-20] MEDS: METHOCARBAMOL 750 MG TABLET PO SCH ×2 (10:45→21:38)
[2018-05-20] MEDS: EZETIMIBE 10 MG TABLET PO SCH (10:46)
[2018-05-20] MEDS: FLUTICASONE NASAL SPRAY 50 MCG/SPRY 120 SPRAY/16 GM NAREB SCH ×2 (10:47→21:39)
[2018-05-20] MEDS: CHOLECALCIFEROL (D3) 400 UNIT TABLET PO SCH ×2 (11:21→18:12)
[2018-05-20] MEDS: INSULIN REG, HUMAN 100 UNIT/ML 3 ML VIAL (PYX) SUBCUT PRN ×2 (12:08→16:11)
[2018-05-20] MEDS: INSULIN GLARGINE,HUM.REC.ANLOG 1,000 UNIT/10 ML UNIT SUBCUT SCH (21:37)
[2018-05-20] MEDS: FERROUS SULFATE 325 MG TABLET PO SCH (21:39)
[2018-05-20] MEDS: GABAPENTIN 100 MG CAPSULE PO SCH (21:39)
[2018-05-21 06:49] LABS: ANION GAP 11 (5-19); BLOOD UREA NITROGEN 20 mg/dL (7-20); CALCIUM 9.2 mg/dL (8.4-10.2); CARBON DIOXIDE 24 mmol/L (22-30); CHLORIDE 102 mmol/L (98-107); GLUCOSE 121 mg/dL (75-110); POTASSIUM 4.9 mmol/L (3.6-5.0); SODIUM 137.4 mmol/L (137-145)
[2018-05-21] MEDS: METHADONE HCL 10 MG TABLET PO SCH ×2 (08:09→20:04)
[2018-05-21] MEDS: INSULIN REG, HUMAN 100 UNIT/ML 3 ML VIAL (PYX) SUBCUT SCH ×3 (08:15→17:24)
[2018-05-21] MEDS: METFORMIN HCL 850 MG TABLET PO SCH ×3 (08:15→17:25)
[2018-05-21] MEDS: FUROSEMIDE 20 MG TABLET PO SCH (08:16)
[2018-05-21] MEDS: LANSOPRAZOLE 30 MG TAB.RAP.DR PO SCH ×2 (10:58→17:24)
[2018-05-21] MEDS: METOPROLOL TARTRATE 100 MG TABLET PO SCH ×2 (10:58→22:41)
[2018-05-21] MEDS: MULTIVIT-STRESS FORMULA/ZINC TABLET PO SCH (10:58)
[2018-05-21] MEDS: APIXABAN 5 MG TABLET PO SCH ×2 (10:59→22:43)
[2018-05-21] MEDS: ASPIRIN 81 MG TABLET, ENT COATED PO SCH (10:59)
[2018-05-21] MEDS: FOLIC ACID 1 MG TABLET PO SCH (10:59)
[2018-05-21] MEDS: SULFAMETHOXAZOLE/TRIMETHOPRIM 800-160 MG TABLET PO SCH ×2 (10:59→22:42)
[2018-05-21] MEDS: ASCORBIC ACID 500 MG TABLET PO SCH (10:59)
[2018-05-21] MEDS: MAGNESIUM OXIDE 400 MG TABLET PO SCH ×2 (10:59→17:24)
[2018-05-21] MEDS: AMLODIPINE BESYLATE 5 MG TABLET PO SCH (11:00)
[2018-05-21] MEDS: EZETIMIBE 10 MG TABLET PO SCH (11:00)
[2018-05-21] MEDS: TIOTROPIUM BROMIDE DPI 5 CAP/KIT (18 MCG/CAP) IH SCH (11:00)
[2018-05-21] MEDS: METHOCARBAMOL 750 MG TABLET PO SCH ×2 (11:01→22:43)
[2018-05-21] MEDS: CHOLECALCIFEROL (D3) 400 UNIT TABLET PO SCH ×2 (11:01→17:25)
[2018-05-21] MEDS: DOCUSATE SODIUM 100 MG CAPSULE PO SCH ×2 (11:02→17:26)
[2018-05-21] MEDS: FLUTICASONE NASAL SPRAY 50 MCG/SPRY 120 SPRAY/16 GM NAREB SCH ×2 (11:05→22:43)
[2018-05-21] MEDS: NORMAL SALINE 1000 ML 1,000 ML IV PRN (11:07)
--- NOTE | 2018-05-21 13:22 | PDOC PROGRESS REPORT ---
Subjective Progress Note for:: 05/21/18 Subjective:: Patient remains in hospital despite being discharged yesterday due to him filing an appeal. Complaints today are of some soreness when swallowing. States his leg is shrimp peeling machine tender. Tolerating meals. Reason For Visit: RHABDOMYOLYSIS, LEG CELLULITIS DIABETES Physical Exam Vital Signs: Temp Pulse Resp BP Pulse Ox 97.7 F 84 20 167/69 H 93 05/21/18 11:21 05/21/18 11:21 05/21/18 11:21 05/21/18 11:21 05/21/18 11:21 Intake & Output 05/20/18 05/21/18 05/22/18 06:59 06:59 06:59 Intake Total 3990 3787 Output Total 900 Balance 3990 2887 Weight 175.7 kg 177.4 kg General appearance: PRESENT: no acute distress, well-developed, well-nourished Respiratory exam: PRESENT: clear to auscultation roxanna. ABSENT: rales, rhonchi, wheezes Cardiovascular exam: PRESENT: RRR. ABSENT: diastolic murmur, rubs, systolic murmur GI/Abdominal exam: PRESENT: normal bowel sounds, soft. ABSENT: distended, guarding, mass, organolmegaly, rebound, tenderness Extremities exam: PRESENT: other - Bilateral venous stasis left leg no longer warm to touch. Still claims tenderness overall improved Results Laboratory Results: 05/19/18 03:27 05/21/18 06:02 05/21/18 06:02 Sodium 137.4 Potassium 4.9 Chloride 102 Carbon Dioxide 24 Anion Gap 11 BUN 20 Creatinine 0.90 Est GFR ( Amer) > 60 Est GFR (Non-Af Amer) > 60 Glucose 121 H Calcium 9.2 05/18/18 05/18/18 05/18/18 06:29 12:45 15:03 Creatine Kinase 1097 H 1035 H 969 H 05/18/18 18:43 Creatine Kinase 805 H Impressions: Tibia/Fibula X-Ray 05/18/18 00:20 IMPRESSION: No acute fracture or dislocation. 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 Diabetes mellitus complication status : without complication Qualified Code(s): E11.9 - Type 2 diabetes mellitus without complications Is this a current diagnosis for this admission?: Yes Plan: Resume out patient medications follow-up with primary care (3) Hypertension Qualifiers: Hypertension type: unspecified Qualified Code(s): I10 - Essential (primary ) hypertension Is this a current diagnosis for this admission?: Yes Plan: Mild systolic hypertension no change in medications follow-up in outpatient setting (4) Rhabdomyolysis Is this a current diagnosis for this admission?: Yes (5) COPD (chronic obstructive pulmonary disease) Qualifiers: Emphysema type: unspecified Is this a current diagnosis for this admission?: Yes (6) Chronic pain Is this a current diagnosis for this admission?: Yes (7) Acute on chronic osteomyelitis Is this a current diagnosis for this admission?: Yes
[2018-05-21] MEDS: NYSTATIN 500000 UNIT/5 ML UDCUP PO SCH ×3 (17:23→23:02)
[2018-05-21] MEDS: OXYCODONE HCL IR 5 MG TABLET PO PRN (20:04)
[2018-05-21] MEDS: GABAPENTIN 100 MG CAPSULE PO SCH (22:42)
[2018-05-21] MEDS: INSULIN GLARGINE,HUM.REC.ANLOG 1,000 UNIT/10 ML UNIT SUBCUT SCH (22:43)
[2018-05-21] MEDS: FERROUS SULFATE 325 MG TABLET PO SCH (22:43)
[2018-05-22] MEDS: IPRATROPIUM/ALBUTEROL 0.5-2.5 MG/3 ML AMPUL NEB PRN ×2 (02:55→11:48)
[2018-05-22] MEDS: NORMAL SALINE 1000 ML 1,000 ML IV PRN (05:06)
[2018-05-22] MEDS: OXYCODONE HCL IR 5 MG TABLET PO PRN (05:06)
[2018-05-22] MEDS: NYSTATIN 500000 UNIT/5 ML UDCUP PO SCH ×2 (05:16→11:33)
[2018-05-22 07:50] VITALS: BP 161/93
[2018-05-22] MEDS: METFORMIN HCL 850 MG TABLET PO SCH ×2 (08:30→11:33)
[2018-05-22] MEDS: INSULIN REG, HUMAN 100 UNIT/ML 3 ML VIAL (PYX) SUBCUT SCH ×2 (08:30→11:32)
[2018-05-22] MEDS: FUROSEMIDE 20 MG TABLET PO SCH (08:31)
[2018-05-22] MEDS: METHADONE HCL 10 MG TABLET PO SCH (08:31)
[2018-05-22] MEDS: CHOLECALCIFEROL (D3) 400 UNIT TABLET PO SCH (10:07)
[2018-05-22] MEDS: LANSOPRAZOLE 30 MG TAB.RAP.DR PO SCH (10:07)
[2018-05-22] MEDS: METHOCARBAMOL 750 MG TABLET PO SCH (10:07)
[2018-05-22] MEDS: MULTIVIT-STRESS FORMULA/ZINC TABLET PO SCH (10:07)
[2018-05-22] MEDS: MAGNESIUM OXIDE 400 MG TABLET PO SCH (10:07)
[2018-05-22] MEDS: AMLODIPINE BESYLATE 5 MG TABLET PO SCH (10:07)
[2018-05-22] MEDS: EZETIMIBE 10 MG TABLET PO SCH (10:08)
[2018-05-22] MEDS: ASCORBIC ACID 500 MG TABLET PO SCH (10:08)
[2018-05-22] MEDS: SULFAMETHOXAZOLE/TRIMETHOPRIM 800-160 MG TABLET PO SCH (10:08)
[2018-05-22] MEDS: FOLIC ACID 1 MG TABLET PO SCH (10:08)
[2018-05-22] MEDS: TIOTROPIUM BROMIDE DPI 5 CAP/KIT (18 MCG/CAP) IH SCH (10:08)
[2018-05-22] MEDS: METOPROLOL TARTRATE 100 MG TABLET PO SCH (10:08)
[2018-05-22] MEDS: APIXABAN 5 MG TABLET PO SCH (10:08)
[2018-05-22] MEDS: ASPIRIN 81 MG TABLET, ENT COATED PO SCH (10:08)
[2018-05-22] MEDS: FLUTICASONE NASAL SPRAY 50 MCG/SPRY 120 SPRAY/16 GM NAREB SCH (10:09)
[2018-05-22] MEDS: DOCUSATE SODIUM 100 MG CAPSULE PO SCH (10:09)
== END 2018-05-22 12:49 | disposition home health service (06) | DRG 638 ==
LOC: ER 22:11 → EH 05-18 02:10 → 3W 05-18 03:58 → 5 05-20 08:45
PROVIDERS: ADMIT Internal Medicine; ATTEND Internal Medicine
DX: E11.69 Type 2 diabetes mellitus with other specified complication (principal); L03.116 Cellulitis of left lower limb; M86.171 Other acute osteomyelitis, right ankle and foot; B37.0 Candidal stomatitis; M62.82 Rhabdomyolysis; I50.32 Chronic diastolic (congestive) heart failure; L97.918 Non-pressure chronic ulcer of unspecified part of right lower leg with other specified severity; M86.671 Other chronic osteomyelitis, right ankle and foot; I83.215 Varicose veins of right lower extremity with both ulcer other part of foot and inflammation; Z68.42 Body mass index [BMI] 45.0-49.9, adult; E11.621 Type 2 diabetes mellitus with foot ulcer; I11.0 Hypertensive heart disease with heart failure; E11.622 Type 2 diabetes mellitus with other skin ulcer; L97.529 Non-pressure chronic ulcer of other part of left foot with unspecified severity; I25.10 Atherosclerotic heart disease of native coronary artery without angina pectoris; E78.5 Hyperlipidemia, unspecified; G47.33 Obstructive sleep apnea (adult) (pediatric); K21.9 Gastro-esophageal reflux disease without esophagitis; E66.01 Morbid (severe) obesity due to excess calories; I25.2 Old myocardial infarction; Z86.711 Personal history of pulmonary embolism; Z79.01 Long term (current) use of anticoagulants; Z79.84 Long term (current) use of oral hypoglycemic drugs; Z79.82 Long term (current) use of aspirin; Z79.4 Long term (current) use of insulin; Z79.899 Other long term (current) drug therapy; Z60.2 Problems related to living alone
CPT/HCPCS: 36415; 80048; 80053; 82550; 82962; 83036; 85025; 87040; 90471; 90686; 94660; 96365; 99285; G0008; J1170; J1815; J2543; J3490; J7030; J7620

== ENCOUNTER 2018-06-24 08:48 | Day surgery (SDC) | payer OTHER, MEDICARE ==
[~2018-06-24 08:48] MED LIST: PROPOFOL INJ 200 MG/20 ML VIAL IV ONE
[2018-06-24 09:36] LABS: INTERNATIONAL RATION (INR) 1.05; PROTHROMBIN TIME 14.2 SEC (11.4-15.4)
[2018-06-24 09:37] LABS: PARTIAL THROMBOPLASTIN TIME 35.2 SEC (23.5-35.8)
[2018-06-24 09:48] LABS: POTASSIUM 4.6 mmol/L (3.6-5.0)
[2018-06-24] MEDS ORDERED: DIPHENHYDRAMINE HCL 50 MG/ML VIAL IV PRN (11:18)
[2018-06-24] MEDS ORDERED: PROMETHAZINE HCL INJ 25 MG/1 ML VIAL IV PRN ×2 (11:18)
[2018-06-24] MEDS ORDERED: FENTANYL CITRATE INJ/PF 100 MCG/2 ML AMPUL IV PRN ×3 (11:18)
[2018-06-24] MEDS ORDERED: MEPERIDINE HCL/PF INJ 25 MG/1 ML DISP.SYRIN IV PRN (11:18)
[2018-06-24] MEDS ORDERED: OXYCODONE-ACETAMINOPHEN 5-325 MG TABLET PO PRN ×2 (11:18)
--- NOTE | 2018-06-24 12:27 | Operative Report ---
Operative Report DATE OF SURGERY: 06/24/18 Operative Report: The risks, benefits and alternatives of the procedure including the risk of bleeding, perforation requiring surgery are explained to the patient in detail and informed consent is obtained. The patient is brought back to the endoscopy suite and placed in the left, lateral decubital position. Timeout was called. Propofol medications administered. A rectal examination is done which did not reveal any masses, tears or fissures. An Olympus videoscope was introduced into the patient's rectum. The scope was then carefully advanced all the way to the cecum. The cecum was identified by the usual anatomical landmarks including the ileocecal valve as well as the appendiceal office. Photodocumentation is obtained. Prep is not as good at this time. Fortunately the polyp was noted in the cecum. The scope was then sequentially pulled back out via the various segments of the colon including the ascending colon, hepatic flexure, transverse colon, splenic flexure, descending colon and finally into the rectosigmoid portions of the colon. Retroflexion maneuver is performed. PREOPERATIVE DIAGNOSIS: Known history of polyp that could not be removed previously due to the fact that the patient did not stop his anticoagulation POSTOPERATIVE DIAGNOSIS: Cecal polyp that was removed via snare polypectomy, retrieved and Endo Clip placed to reduce risk of post polypectomy bleeding. 2 small sessile ascending colon polyps then ablated in situ. Internal hemorrhoids OPERATION: Colonoscopy with snare polypectomy. Colonoscopy with ablation SURGEON: PEE GALE ANESTHESIA: LMAC TISSUE REMOVED OR ALTERED: As noted above. COMPLICATIONS: None. ESTIMATED BLOOD LOSS: None. INTRAOPERATIVE FINDINGS: As noted above. PROCEDURE: Patient tolerated the procedure well. No immediate postprocedure complications are noted. Patient discharged in good condition. Discharge date 06/24/2018. Discharge diet: Regular. Discharge activity: Regular. 2-3-week follow-up to discuss findings. Patient is instructed call the office or proceed to the emergency room should there be any further proximal questions. 3-year surveillance colonoscopy.
[2018-06-24 12:36] VITALS: BP 146/78
== END 2018-06-24 12:20 | disposition home or self-care (01) ==
LOC: OROUT 08:48
PROVIDERS: ATTEND Internal Medicine Gastroenterology
DX: D12.0 Benign neoplasm of cecum (principal); D12.2 Benign neoplasm of ascending colon; K64.8 Other hemorrhoids; Z86.010 Personal history of colon polyps; K62.5 Hemorrhage of anus and rectum; J44.9 Chronic obstructive pulmonary disease, unspecified; I10 Essential (primary) hypertension; P70.2 Neonatal diabetes mellitus; E66.01 Morbid (severe) obesity due to excess calories; D64.9 Anemia, unspecified; R01.1 Cardiac murmur, unspecified; G89.4 Chronic pain syndrome; Z79.01 Long term (current) use of anticoagulants; Z68.41 Body mass index [BMI] 40.0-44.9, adult; Z95.0 Presence of cardiac pacemaker
CPT/HCPCS: 45385; 45388; 36415; 82947; 84132; 85610; 85730; 88305 ×2; J2704; 811

== ENCOUNTER → 2020-04-10 | Outpatient (CLI) | payer OTHER ==
--- NOTE | 2020-04-10 10:34 | RADIOLOGY REPORT (SQ) ---
EXAM DESCRIPTION: CT ABD/PELVIS NO ORAL OR IV IMAGES COMPLETED DATE/TIME: 04/10/2020 8:03 am REASON FOR STUDY: R16.0 HEPATOMEGALY, NOT ELSEWHERE CLASSIFIED R16.0 HEPATOMEGALY, NOT ELSEWHERE CL ASSIFIED COMPARISON: CT of the abdomen and pelvis without contrast from 12/24/2014. TECHNIQUE: CT scan of the abdomen and pelvis performed without intravenous or oral contrast. Images reviewed with lung, soft tissue, and bone windows. Reconstructed coronal and sagittal MPR images revi ewed. All images stored on PACS. All CT scanners at this facility use dose modulation, iterative reconstruction, and/or weight based d osing when appropriate to reduce radiation dose to as low as reasonably achievable (ALARA). [facility]: Dose Right [facility]: CareDose [facility]: Dose Right [facility]: Teradose 4D [facility]: Smart Adometry [employer] RADIATION DOSE: CT Rad equipment meets quality standard of care and radiation dose reduction techniq ues were employed. CTDIvol: 32.0 mGy. DLP: 1757 mGy-cm. LIMITATIONS: None. FINDINGS: LOWER CHEST: No acute findings. NON-CONTRASTED LIVER, SPLEEN, ADRENALS: Evaluation is limited due to the absence of intravenous contr ast. The diffuse low attenuation of the hepatic parenchyma is suggestive of underlying hepatic steat osis. The spleen is borderline enlarged and it measures 13.3 cm in craniocaudal diameter. There is no adrenal mass. PANCREAS: No acute gross abnormality of the pancreas. GALLBLADDER: The high attenuation material within the gallbladder lumen could represent cholelithiasi s. There is no pericholecystic inflammation. RIGHT KIDNEY AND URETER: Evaluation is limited due to the absence of intravenous contrast. There is no hydronephrosis, nephrolithiasis, hydroureter or ureterolithiasis. LEFT KIDNEY AND URETER: Evaluation is limited due to the absence of intravenous contrast. There is n o hydronephrosis, nephrolithiasis, hydroureter or ureterolithiasis. AORTA AND RETROPERITONEUM: Stable prominent bilateral external iliac and obturator lymph nodes that m easure up to 10 mm in short axis diameter. There is atherosclerotic calcification of the abdominal ao rta and iliac arteries. There is no retroperitoneal mass or hemorrhage. BOWEL AND PERITONEAL CAVITY: No bowel obstruction, bowel wall thickening or pericolonic/ perienteric inflammation. No mesenteric adenopathy, free intraperitoneal fluid or mesenteric/ omental inflammati on. APPENDIX: Unable to identify the appendix. PELVIS, BLADDER, AND ABDOMINAL WALL:The prostate gland is enlarged. The urinary bladder is contracte d. There is a fat containing ventral hernia. BONES: Bilateral pars interarticularis defects at L3-L4 associated with grade 1 anterolisthesis of L3 relative to L4. OTHER: Infrarenal IVC filter. IMPRESSION: 1. No acute intra-abdominal abnormality. 2. Hepatic steatosis. 3. Cholelithiasis. 4. Borderline splenomegaly. 5. Prostatomegaly. COMMENT: Quality ID # [id number]: Final reports with documentation of one or more dose reduction techniques (e.g., Automated exposure control, adjustment of the mA and/or kV according to patient size, use of iterative reconstruction technique) TECHNICAL DOCUMENTATION: JOB ID: [id number] 2010 [employer]- All Rights Reserved Reading location - IP/workstation name: [email or web address]
== END ==
LOC: RAD 07:45
PROVIDERS: ATTEND Internal Medicine
DX: R16.0 Hepatomegaly, not elsewhere classified (principal); K80.20 Calculus of gallbladder without cholecystitis without obstruction; K76.0 Fatty (change of) liver, not elsewhere classified; N40.0 Benign prostatic hyperplasia without lower urinary tract symptoms
CPT/HCPCS: 74176